=== PATIENT | female | born 1960 | race Caucasian/White ===

== ENCOUNTER 2021-11-20 19:42 | Emergency (ER) | payer BC, SELFPAY ==
--- NOTE | ~2021-11-20 | XR_ITS ---
EXAMINATION: XR chest 1V portable DATE: 11/20/2021 20:53 INDICATION: Shortness of breath. TECHNIQUE: A single frontal view of the chest was obtained. COMPARISON: Chest single view 11/26/2015 FINDINGS: A calcified left lung nodule is consistent with old granulomatous disease. There are modera te-sized pleural effusions. There are airspace opacities at the lung bases. No pneumothorax. There is enlargement of the cardiac silhouette. There is a right-sided aortic arch. IMPRESSION: 1. Moderate-sized pleural effusions. 2. Airspace opacities at the lung bases, consistent with atelectasis versus pneumonia. 3. New enlargement of the cardiac silhouette, which may be cardiomegaly and/or pericardial effusion. 4. Right-sided aortic arch. Reviewed, dictated and finalized at location [facility] IMPRESSION: 1. Moderate-sized pleural effusions. 2. Airspace opacities at the lung bases, consistent with atelectasis versus pne umonia. 3. New enlargement of the cardiac silhouette, which may be cardiomegaly and/or pericardial effusion. 4. Right-sided aortic arch.
--- NOTE | 2021-11-20 19:58 | ED.SOB ---
HPI - SOB/Dyspnea General Chief Complaint: Shortness of Breath/Dyspnea Stated Complaint: trouble breathing Time Seen by Provider: 11/20/21 19:58 History of Present Illness HPI Narrative: 61-year-old female patient presents to ER with complaints of shortness of breath that has been going on for 1 week and got worse today. The patient states that she has had back pain and did see her chiropractor earlier in the day when tested her back. She came home and slipped on ice and fell but did not lay on the ice for too long. As the day went by her shortness of breath got worse. She denies any associated chest pain. She states that she breaks out in sweats especially when she is exerting herself even as little as from getting up and walking around the room. She is not a smoker. She has had a remote history of pulmonary embolus, ? 10 years ago and was on anticoagulation for 1 year. Patient denies any chest tightness or pressure. Patient denies any pain in the neck jaw or arms. She does complain about back pain that has been going on for a while. Patient denies any nausea or vomiting. She denies any abdominal pain. Denies any passing-out spells. Related Data Home Medications Medication Instructions Recorded Confirmed aspirin 81 mg tablet,delayed 81 mg PO DAILY 10/29/19 11/20/21 release Allergies Allergy/AdvReac Type Severity Reaction Status Date / Time bupropion Allergy Mild Palpitation Verified 11/20/21 20:12 s iodine Allergy Unknown Anaphylaxis Verified 11/20/21 20:12 Review of Systems Review of Systems: All systems reviewed & are unremarkable except as noted in HPI and below ROS unobtainable: Yes unobtainable due to medical condition PMFSH Past Medical History Medical History Anxiety Dyslipidemia History of pulmonary embolism Hypertension Type 2 diabetes mellitus without complication, without long-term current use of insulin Family History Family History Other Diabetes mellitus Family history of coronary artery disease Hypertension Social History Social History Smoking status: Current every day smoker Second hand tobacco smoke exposure: No Alcohol intake: never Exam Const: General: diaphoretic and ill appearing Nutritional Appearance: well nourished HENMT: Head: normal to inspection Mouth: Yes Normal oral and palatal mucosa present and Yes moist mucous membranes Eyes: Conjunctivae: conjunctivae normal Pupils: Equal, round and reactive pupils present EOM: EOMs intact bilaterally Neck: Neck: normal visual inspection Chest: Chest palpation & inspection: normal inspection of the chest Resp: Effort & Inspection: tachypneic and uses accessory muscles Auscultation: no rales, no rhonchi and no wheezes Cardio: Rate: tachycardic GI: GI Palp: No Tenderness to palpation present (GI), No Guarding due to palpation present (GI), No Rigid due to palpation and No Rebound tenderness present Back/Spine/Pelvis: Back: no CVA tenderness Skin: General skin exam: pallor Other: Diaphoretic Neuro: General: patient oriented x3, moves all extremities, no meningeal signs, no focal motor deficits and CN's II-XI intact bilaterally Speech: normal speech Extrem: General: normal to inspection and no pedal edema Psych: Mental Status: mental status grossly normal Affect: Anxious affect present Course Course Emergency Course: 61-year-old female patient presents to ER with complaints of shortness of breath that has been progressively getting worse over a week. Apparently tonight the shortness of breath became much more severe. The patient the O also complains of associated weakness and increases in symptoms with any slight activity. She denies any chest pain. She denies any cough. She denies any fever or chills. Patient states that she has had back p
[2021-11-20 20:00] VITALS: BP 125/110; PULSE 115; RESP 26; TEMP 33.1; O2SAT 97
--- NOTE | 2021-11-20 20:05 | ECG_ITS ---
Measurements Intervals [place] Rate: 107 P: 20 VA: 149 QRS: 23 QRSD: 115 T: 6 QT: 386 QTc: 517 Interpretive Statements SINUS TACHYCARDIA POSSIBLE LEFT ATRIAL ENLARGEMENT LOW QRS VOLTAGE IN PRECORDIAL LEADS BORDERLINE R WAVE PROGRESSION, ANTERIOR LEADS MINIMAL Q WAVES- INFERIOR LEADS NONSPECIFIC ST ELEVATION IN HIGH LATERAL LEADS BASELINE ARTIFACT- I, II, III, AVR, AVL, AVF, V1-V3 ABNORMAL ECG Electronically Signed On 11-21-2021 6:48:45 CHARACTER IMPERSONATOR by Nitesh Mcgregor D.O.
[2021-11-20 20:42] LABS: Hematocrit 41.4 % (35.0-49.0); Hemoglobin 13.6 g/dL (12.0-15.0); Mean Corpuscular HGB Conc 32.9 g/dL (32.0-36.0); Mean Corpuscular Hemoglobin 29.1 pg (27.0-31.0); Mean Corpuscular Volume 88.5 fL (78.0-102.0); Mean Platelet Volume 10.6 fl (9.2-11.8); Platelet Count Result 337 K/mm3 (150-420); Red Blood Count 4.68 M/mm3 (4.20-5.40); Red Cell Distribution Width 13.5 % (11.6-14.4); White Blood Count 16.7 K/mm3 (4.8-10.8)
[2021-11-20 20:46] VITALS: BP 124/63; PULSE 106; RESP 26; O2SAT 94
[2021-11-20 21:06] LABS: Alanine Aminotransferase 42 U/L (14-59); Alkaline Phosphatase 130 U/L (46-116); Anion Gap 18 mmol/L (8-16); Aspartate Amino Transferase 24 U/L (15-37); Bilirubin,Total 2.8 mg/dL (0.00-1.00); Blood Urea Nitrogen 50 mg/dL (7-18); Calcium 9.4 mg/dL (8.5-10.1); Carbon Dioxide 24 mmol/L (21-32); Chloride 84 mmol/L (98-108); Estimated CRCL calculation 47 ml/min; Estimated Glomerular Filt Rate 33; Magnesium 2.5 mg/dL (1.8-2.4); NT Pro B Type Natriuretic Pept 2094 pg/mL (0-125); Sodium 126 mmol/L (136-145); Total Protein 8.1 g/dL (6.4-8.2)
[2021-11-20 21:08] LABS: Potassium 2.4 mmol/L (3.5-5.1)
[2021-11-20 21:09] LABS: Glucose 551 mg/dL (70-99); Osmolality Calculated 300 mOsm/kg (285-295)
[2021-11-20 21:15] VITALS: BP 121/90; PULSE 109; RESP 26; TEMP 33.3; O2SAT 96
[2021-11-20 21:16] LABS: Base Excess ABG 0.2 mmol/L (0-2); Fractional Inspired Oxygen 32 %; HCO3 ABG 23.6 mmol/L (23-29); Oxygen Content ABG 16.2 %vol (16.0-22.0); Oxygen Saturation ABG 84.9 % (95-97); Oxyhemoglobin 83.5 % (94-100); PCO2 ABG 34.7 mmHg (35-45); PO2 ABG 50.6 mmHg (80-90); PO2 FiO2 Ratio Arterial Blood 1.58 %; Total Hemoglobin 13.8 g/dL (12.0-18.0); pH ABG 7.45 (7.35-7.45)
[2021-11-20 21:17] LABS: HCO3 VBG 25.5 mEq/l (24.0-30.0); PO2 VBG 34.8 mmHg (35.0-45.0)
--- NOTE | 2021-11-20 21:17 | PC.NURSE ---
lab reports glucose of 551, erp is made aware
[2021-11-20 21:18] LABS: Device HIGH FLOW NASAL CANN; Device NASAL CANNULA; Modified Allen's Test Pass; Site Drawn RIGHT RADIAL
[2021-11-20 21:21] LABS: Creatine Kinase 339 U/L (26-192); Troponin I 13.5 ng/L (0.00-60.4)
[2021-11-20 21:22] LABS: SARS-CoV-2 RNA PCR Negative (Negative)
[2021-11-20 21:27] LABS: Neutrophils Percent Manual 77 % (46-73); Total Cells Counted 100
[2021-11-20 21:28] LABS: Band Neutrophils Percent 11 % (0-6); Basophils Percent Manual 0 % (0-1); Eosinophils Percent Manual 0 % (1-6); Lymphocytes Percent Manual 6 % (18-44); Metamyelocytes Percent 1 %; Monocytes Absolute Manual 0.83 K/mm3 (0.1-0.90); Monocytes Percent Manual 5 % (3-9); Neutrophils Absolute Manual 14.69 K/mm3 (1.7-7.2); Platelet Estimate Adequate (Adequate)
[2021-11-20 21:35] LABS: Acetone Negative (Negative)
[2021-11-20] MEDS: ENOXAPARIN 120 MG/0.8 ML SYRINGE SUB-Q (21:49)
[2021-11-20] MEDS: INSULIN HUMAN REGULAR (*BKC) 100 UNITS/ML 10 UNITS SUB-Q (21:50)
[2021-11-20] MEDS: KCL 20 MEQ/SW 100 ML 100 ML 50 MEQ IVPB (21:50)
[2021-11-20] MEDS: POTASSIUM CHLORIDE 20 MEQ TABLET 40 MEQ PO (21:50)
--- NOTE | 2021-11-20 22:14 | PC.NURSE ---
3011 CONTACTED EDITORIAL SPECIALIST AND ERP AT [facility] FOR POSSIBLE TRANSFER, TO AWAIT RETURN CALL FROM HOSPITALIST AT THIS TIME. SON AT BEDSIDE, AWARE OF PT PLAN AND CONDITION. PT IS AGREEABLE TO TRANSFER AND CARE PLAN. IV MEDICATION INFUSING ORDERED WITHOUT DIFFICULTY. PT SEEMS TO BREATHING BETTER AT THIS TIME. MEDICATIONS WERE GIVEN ORDERED WITHOUT DIFFICULTY. WILL CONTINUE TO MONITOR.
[2021-11-20 22:16] VITALS: BP 115/88; PULSE 108; RESP 30; TEMP 33.3; O2SAT 97
--- NOTE | 2021-11-20 22:32 | PC.NURSE ---
spoke with Kaur prescottmalt house kiln operator in regards to speaking with hospitalist. Dr. Hanson is malt house kiln operator who will be paged again at this time.
[2021-11-20] MEDS: SODIUM CHLORIDE 0.9% IV 1,000 ML 999 ML (22:52)
--- NOTE | 2021-11-20 22:54 | PC.NURSE ---
PT KEEPS TAKING JOSE HUGGER OFF, REPORTS SHE IS HOT. PT REMAINS COOL TO TOUCH AND DIAPHORETIC. PT RESP STATUS IMPROVING. PT IS AWAITING CULTURES TO BE OBTAINED PRIOR TO ABX START. WILL CONTINUE TO MONITOR. PT IS AWAITING ROOM ASSIGNMENT AT [facility] FOR TRANSFER. WILL CONTINUE TO MONITOR.
--- NOTE | 2021-11-20 23:20 | PC.NURSE ---
SPOKE WITH PHARMACIST AT [facility] TO VERIFY COMPATIBILITY OF MEDICATIONS. HE VERIFIES THAT VANCOMYCIN AND ZOSYN ARE COMPATIBLE WITH POTASSIUM, HOWEVER STATES TO INFUSE THEM SEPARATELY FROM EACH OTHER. PT AND SON ARE AWARE OF PLAN TO TRANSFER TO [facility] AND THAT WE ARE AWAITING A ROOM ASSIGNMENT FOR TRANSFER. WILL CONTINUE TO MONITOR.
[2021-11-20 23:26] LABS: Lactic Acid Reflex 3.6 mmol/L (0.4-2.0)
--- NOTE | 2021-11-20 23:27 | PC.NURSE ---
REPORT TO MARU LEDEZMA
[2021-11-20 23:29] LABS: Anion Gap 15 mmol/L (8-16); Blood Urea Nitrogen 50 mg/dL (7-18); Carbon Dioxide 22 mmol/L (21-32); Chloride 88 mmol/L (98-108); Estimated CRCL calculation 53 ml/min; Estimated Glomerular Filt Rate 39; Potassium 2.9 mmol/L (3.5-5.1); Sodium 125 mmol/L (136-145)
[2021-11-20 23:32] LABS: Glucose 515 mg/dL (70-99); Osmolality Calculated 296 mOsm/kg (285-295)
[2021-11-20 23:49] VITALS: TEMP 35.4
[2021-11-21 00:17] LABS: Add Urine Microscopic? YES; Appearance Urine Clear (Clear); Bilirubin Urine 1+ (Negative); Blood Urine Negative (Negative); Color Urine Dark Yellow (Yellow); Glucose Urine UA 3+ (Negative); Ketones Urine Trace (Negative); Leukocyte Esterase Ur Negative LEU/UL (Negative); Nitrate Urine Negative (Negative); Protein Urine Trace (Negative); Specific Grav Ur 1.025 (1.010-1.020); pH Urine 5.5 (5.0-8.0)
[2021-11-21 00:22] LABS: Amorphous Sediment Urine Moderate; Bacteria Urine 1+ /hpf; RBC Urine 0-2 /hpf (0-2); Squamous Epithelial Cell Urine Moderate /hpf (Few); WBC Urine 0-3 /hpf (0-3)
[2021-11-21 00:23] LABS: Glucose Point of Care 450 mg/dl (65-105)
[2021-11-21] MEDS: INSULIN HUMAN REGULAR (*BKC) 100 UNITS/ML 10 UNITS IV PUSH (00:29)
[2021-11-21] MEDS: SODIUM CHLORIDE 0.9% IV 1,000 ML 999 ML IV CONT (00:29)
[2021-11-21] MEDS: POTASSIUM CHLORIDE 20 MEQ TABLET 40 MEQ PO (00:29)
--- NOTE | 2021-11-21 00:39 | PC.NURSE ---
Report called to [facility], pt going to room 203, accepting doctor dr polanco. Pt transfered by julianna matthews rig
[2021-11-21 00:40] VITALS: BP 126/88; PULSE 102; RESP 26; TEMP 35.4; O2SAT 98
[2021-11-21 02:13] LABS: Reflex Lactic Acid Yes or No Add Lactic
== END 2021-11-21 00:42 | disposition short-term general hospital (02) ==
PROVIDERS: Emergency Provider Emergency Medicine; PCP Family Medicine
DX: A41.89 Other specified sepsis (principal); R06.03 Acute respiratory distress; R79.1 Abnormal coagulation profile; E11.65 Type 2 diabetes mellitus with hyperglycemia; E87.6 Hypokalemia; Z20.822 Contact with and (suspected) exposure to COVID-19
CPT/HCPCS: 36415; 36600; 71045; 80048; 80053; 81001; 82010; 82550; 82553; 82803; 82805; 82948; 83605; 83735; 83880; 84484; 85025; 85380; 87040; 93005; 96361; 96365; 96367; 96372; 96375; 99291; A9270; C9803; J1650; J1815; J2543; J3370; J3480; J7030; U0003; U0005

== ENCOUNTER 2021-11-21 01:43 | Inpatient (IN) | payer BC, SELFPAY ==
[2021-11-21] VITALS (52 sets, daily range): BP systolic 70–146; BP diastolic 34–93; PULSE 99–122; RESP 20–31; TEMP 35.3–38.1; O2SAT 90–97; BMI 40.4
--- NOTE | 2021-11-21 | ECHO_ITS ---
Patient Info Name: Aleah Almeida Age: 61 years : 1960 Gender: Female Ht: 68 in Wt: 265 lbs BSA: 2.46 m2 HR: 71 bpm BP: 92 / 71 mmHg Heart Rhythm: Sinus Rhythm Technical Quality: Good Exam Date: 11/21/2021 7:41 AM Exam Location: [facility] Pulmonary Exam Room: ICU5 Patient Status: Inpatient Admit Date: 11/21/2021 Staff Ordering Physician: Aydee Hanson DO Community Development Coordinator: Mirna Ballesteros RDCS Attending Provider: Aydee Hanson DO Referring Physician: Margie CAROLINA; Exam Type: CA echo doppler color flow Study Info Indications - CARDIOMEGALY PLEURAL EFFUSION PUM EDEMA Complete two-dimensional, color flow and Doppler transthoracic echocardiogram is performed. Summary 1. Complete two-dimensional, color flow and Doppler transthoracic echocardiogram is performed. 2. Normal left ventricular size with mild concentric hypertrophy. Normal systolic function, ejection fraction 60-65%, with no segmental wall motion abnormalities. Normal diastolic function. 3. Moderate right ventricular enlargement with moderate hypokinesis. 4. Mild right atrial enlargement. 5. There is mild tricuspid valve regurgitation. 6. Mild pulmonary hypertension, estimated pulmonary arterial systolic pressure is 46 mmHg. 7. There is trivial pericardial effusion. 8. Normal sinus rhythm. Left Ventricle Left ventricular chamber dimension is normal. Left ventricular systolic function is normal, estimated at 60-65%. There is mildly increased left ventricular wall thickness. Left ventricular septal wall motion is normal. The left ventricular diastolic function is normal. Right Ventricle Right ventricular chamber dimension is moderately enlarged. Right ventricular systolic function is reduced. Left Atria Left atrial chamber dimension is normal. Right Atria Right atrial chamber dimension is mildly enlarged. Aortic Valve The aortic valve is trileaflet. There is no aortic valve sclerosis. There is no aortic valve stenosis. There is no aortic valve regurgitation. Pulmonic Valve The pulmonic valve is normal. There is no pulmonic valve stenosis. There is no pulmonic regurgitation. Mitral Valve The mitral valve has normal leaflets. There is no mitral valve stenosis. There is no mitral valve regurgitation. Tricuspid Valve The tricuspid valve leaflets are normal. There is no significant tricuspid valve stenosis. There is mild tricuspid valve regurgitation. Mild pulmonary hypertension, estimated pulmonary arterial systolic pressure is 46 mmHg. Pericardium/Pleural There is trivial pericardial effusion. Inferior Vena Cava Normal inferior vena cava with >50% collapse upon inspiration consistent with Empty right atrial pressure, 10 mmHg. Aorta The aortic root size at the sinus of Valsalva is normal. The prox ascending aorta size is normal. Left Ventricular Outflow Tract Name Value Normal LVOT 2D LVOT Diameter 2.1 cm LVOT Doppler LVOT Peak Gradient 6 mmHg LVOT Mean Gradient 3 mmHg LVOT VTI 17 cm
--- NOTE | ~2021-11-21 | XR_ITS ---
EXAMINATION: [id number] DATE: 11/22/2021 14:04 INDICATION: Left pleural effusion status post thoracentesis. TECHNIQUE: A single frontal view of the chest was obtained. COMPARISON: Chest single view at 5:02 AM, chest CT 11/21/2021 FINDINGS: There are moderate-sized loculated pleural effusions. A calcified left lung nodule is consi stent with old granulomatous disease. There are airspace opacities in all lung zones bilaterally. No pneumothorax. The heart size is normal. The endotracheal tube tip is 4.0 cm above the alex. The mack ogastric tube tip is beyond the inferior margin of the radiograph, but at least to the stomach. IMPRESSION: 1. Moderate-sized loculated pleural effusions with improvement on the left status post thoracentesis. 2. Severe diffuse lung disease, consistent with pneumonia and atelectasis. Reviewed, dictated and finalized at location A. IC TECHNICIAN IMPRESSION: 1. Moderate-sized loculated pleural effusions with improvement on the left stat us post thoracentesis. 2. Severe diffuse lung disease, consistent with pneumonia and atelectasis.
--- NOTE | ~2021-11-21 | CT_ITS ---
EXAMINATION: CT brain wo con INDICATION: Encephalopathy COMPARISON: None TECHNIQUE: Standard unenhanced head CT. The dose-length product (DLP) was 605.33 mGy-cm. The mA was a djusted according to patient size. Iterative reconstruction technique was employed. FINDINGS: There is no intracranial hemorrhage, acute infarction, or abnormal mass lesion. The ventric les are normal. There is no abnormal mass effect or midline shift. The burger-white matter differentiat ion is normal. The basal cisterns are patent. Changes in the globes are likely from ocular lens surge ry. There is mild mucosal thickening of the paranasal sinuses and small mastoid effusions. IMPRESSION: 1. No acute intracranial abnormality. Reviewed, dictated and finalized at location A. STS' BOOKING REPRESENTATIVE
--- NOTE | ~2021-11-21 | XR_ITS ---
EXAMINATION: XR chest 1V portable DATE: 11/23/2021 05:48 INDICATION: Acute respiratory failure. Pleural effusion. TECHNIQUE: A single frontal view of the chest was obtained. COMPARISON: Chest single view 11/22/2021 FINDINGS: There are moderate-sized bilateral loculated pleural effusions. There are airspace opacitie s in all lung zones bilaterally, left worse than right. A calcified left lung nodule is consistent wi th old granulomatous disease. No pneumothorax. The heart size is normal. There is a right-sided aorti c arch. The endotracheal tube tip is 4.2 cm above the alex. The nasogastric tube tip is beyond the inferior margin of the radiograph, but at least to the stomach. IMPRESSION: 1. Stable moderate-sized loculated bilateral pleural effusions. Consider repeat thoracentesis. 2. Stable diffuse lung disease, consistent with pneumonia. Reviewed, dictated and finalized at location A. I POWDER MIXER
--- NOTE | ~2021-11-21 | XR_ITS ---
EXAMINATION: XR chest ET placement INDICATION: Septic shock, endotracheal tube placement TECHNIQUE: Portable AP chest at 0200 hours COMPARISON: 11/20/2021 FINDINGS: An endotracheal tube has been inserted which ends approximately 2.8 cm above the alex. Th e nasogastric tube is followed as far as the stomach. Its tip is beyond the inferior margin of the ra diograph. There are small to moderate-sized pleural effusions. The cardiac silhouette is enlarged. No pneumothorax is identified. A right-sided aortic arch is again noted. IMPRESSION: 1. Endotracheal and nasogastric tubes in adequate position. 2. Moderate-sized pleural effusions. 3. Enlargement of the cardiac silhouette which may be due to cardiomegaly and/or pericardial effusion . Reviewed, dictated and finalized at location A. CONDITIONING UNIT TESTER IMPRESSION: 1. Endotracheal and nasogastric tubes in adequate position. 2. Moderate-sized pleural effusions. 3. Enlargement of the cardiac silhouette which may be due to cardiomegaly and/o r pericardial effusion.
--- NOTE | ~2021-11-21 | US_ITS ---
EXAMINATION: US thoracentesis DATE: 11/22/2021 14:20 INDICATION: pleural effusion TECHNIQUE: The procedure and its risks, benefits, and alternatives were discussed with Devin Frederick. Potential risks discussed included bleeding, infection, and pneumothorax. He understood the risks and agreed to proceed. The skin was prepped and draped in sterile fashion. 1% lidocaine was used for loc al anesthesia. Under ultrasound guidance, a 5 Fr catheter with trochar was advanced into the left ple ural effusion. Fluid was aspirated. The catheter was removed, and a dressing was applied. There were no immediate complications. FINDINGS: Ultrasound images demonstrate a left pleural effusion and the catheter within the fluid. IMPRESSION: 1. Successful ultrasound-guided thoracentesis yielding 1200 mL of opaque, kincaid fluid. Reviewed, dictated and finalized at location A. ING MANAGER
--- NOTE | ~2021-11-21 | XR_ITS ---
EXAMINATION: XR chest 1V portable DATE: 11/24/2021 05:49 INDICATION: Respiratory failure. TECHNIQUE: A single frontal view of the chest was obtained. COMPARISON: Chest single view 11/23/2021 FINDINGS: There are moderate-sized bilateral loculated pleural effusions. There are airspace opacitie s in right mid and lower lung zones and all left lung zones. A calcified left lung nodule is consiste nt with old granulomatous disease. There is a tiny left pneumothorax. The heart size is normal. There is a right-sided aortic arch. The endotracheal tube tip is 4.6 cm above the alex. A right upper ex tremity peripherally inserted central venous catheter (PICC) is seen with tip at the superior cavoatr ial junction. The nasogastric tube tip is beyond the inferior margin of the radiograph, but at least to the stomach. IMPRESSION: 1. New tiny left pneumothorax. 2. Stable airspace opacities in right mid and lower lung zones and all left lung zones, consistent wi th pneumonia. 3. Stable moderate-sized bilateral loculated pleural effusions. Reviewed, dictated and finalized at location A. LER AND TEST PREPARER IMPRESSION: 1. New tiny left pneumothorax. 2. Stable airspace opacities in right mid and lower lung zones and all left sarita g zones, consistent with pneumonia. 3. Stable moderate-sized bilateral loculated pleural effusions.
--- NOTE | ~2021-11-21 | CT_ITS ---
EXAMINATION: CT chest abdomen pelvis wo con DATE: 11/21/2021 05:05 INDICATION: Septic shock TECHNIQUE: Transaxial computed tomographic images of the chest, abdomen, and pelvis were obtained wit hout intravenous contrast. The dose-length product (DLP) was 2055.15 mGy-cm. Automated exposure contr ol and iterative reconstruction technique were employed. COMPARISON: None FINDINGS: CHEST CT: There are moderate size loculated bilateral pleural effusions which result in passive atelectasis of the adjacent lung. In the left pleural space, the fluid appears to be hyperattenuating however accura te assessment of attenuation is limited by streak artifact from the arms. The endotracheal tube is 1. 9 cm above the alex. The heart size is normal. There is a large pericardial effusion. There is a ri ght-sided aortic arch. There is no pneumothorax. ABDOMEN/PELVIS CT: The gallbladder is surgically absent. The liver, spleen, pancreas, and adrenal glands are normal. The nasogastric tube is in the stomach. The kidneys are unremarkable. The bladder is decompressed by Fol ey catheter. No pathologically enlarged abdominal or pelvic lymph nodes are identified. There is no f ree intraperitoneal gas or evidence of bowel obstruction. There is a moderate-sized infraumbilical he rnia containing fat. A right femoral venous catheter is noted. IMPRESSION: 1. Moderate-sized loculated pleural effusions with passive atelectasis of the lungs. 2. Large pericardial effusion. 3. No acute findings of the abdomen or pelvis. Reviewed, dictated and finalized at location A. BLANKING PRESS ADJUSTER IMPRESSION: 1. Moderate-sized loculated pleural effusions with passive atelectasis of the l ungs. 2. Large pericardial effusion. 3. No acute findings of the abdomen or pelvis.
--- NOTE | ~2021-11-21 | US_ITS ---
EXAMINATION: US venous doppler [facility] DATE: 11/22/2021 10:40 INDICATION: Lower limb edema. TECHNIQUE: Grayscale ultrasound images without and with compression and Doppler ultrasound images of the bilateral lower extremity veins were obtained. COMPARISON: None. FINDINGS: The visualized portions of right common femoral vein, profunda (deep) femoral vein, femoral vein, pop liteal vein, peroneal veins, posterior tibial veins, and greater saphenous vein outflow are patent. The visualized portions of left common femoral vein, profunda femoral vein, femoral vein, popliteal v ein, peroneal veins, posterior tibial veins, and greater saphenous vein outflow are patent. IMPRESSION: 1. No deep venous thrombosis. Reviewed, dictated and finalized at location A. LITIES MAINTENANCE SUPERVISOR
--- NOTE | ~2021-11-21 | XR_ITS ---
EXAMINATION: XR abdomen NG/feed tube insert INDICATION: OG placement TECHNIQUE: Portable AP KUB-NG at 0209 hours COMPARISON: None available FINDINGS: The OG tube is in the stomach. The bowel gas pattern is nonspecific. IMPRESSION: 1. OG tube in the stomach. Reviewed, dictated and finalized at location A. AL ACCOUNT DIRECTOR IMPRESSION: 1. OG tube in the stomach.
--- NOTE | ~2021-11-21 | XR_ITS ---
EXAMINATION: XR chest 1V portable DATE: 11/22/2021 05:30 INDICATION: Acute respiratory failure. Pleural effusion. TECHNIQUE: A single frontal view of the chest was obtained. COMPARISON: Chest single view 11/21/2021, chest CT 11/21/2021 FINDINGS: There are bilateral moderate-sized loculated pleural effusions. There are airspace opacitie s in right mid and lower lung zones and all left lung zones. A calcified left lung nodule is consiste nt with old granulomatous disease. No pneumothorax. The heart size is obscured. There is a right-side d aortic arch. The endotracheal tube tip is 3.4 cm above the alex. The nasogastric tube tip is beyo nd the inferior margin of the radiograph, but at least to the stomach. IMPRESSION: 1. Stable bilateral moderate-sized loculated pleural effusions. 2. Stable airspace opacities in right mid and lower lung zones and all left lung zones, consistent wi th pneumonia and atelectasis. Reviewed, dictated and finalized at location A. ONENT DESIGN ENGINEER IMPRESSION: 1. Stable bilateral moderate-sized loculated pleural effusions. 2. Stable airspace opacities in right mid and lower lung zones and all left sarita g zones, consistent with pneumonia and atelectasis.
--- NOTE | ~2021-11-21 | CT_ITS ---
EXAMINATION: CT chest abdomen pelvis wo con DATE: 11/23/2021 09:53 INDICATION: Septic shock TECHNIQUE: Transaxial computed tomographic images of the chest, abdomen, and pelvis were obtained wit hout intravenous contrast. The dose-length product (DLP) was 2067.89 mGy-cm. Automated exposure contr ol and iterative reconstruction technique were employed. COMPARISON: 11/21/2021 FINDINGS: CHEST CT: Moderate-sized bilateral loculated pleural effusions are again noted. There are increasing airspace o pacities throughout the lungs. Passive atelectasis is also again noted and not significantly changed. There is a large pericardial effusion the heart size is normal. There is a questionable tiny anterio r right-sided pneumothorax. The endotracheal tube ends approximately 2.1 cm above the alex. A right -sided aortic arch is noted. ABDOMEN/PELVIS CT: The nasogastric tube is in the stomach. The gallbladder is surgically absent. Punctate calcifications in otherwise normal appearing liver and spleen likely represent healed granulomatous disease. The pa ncreas and adrenal glands appear normal. The kidneys are unremarkable. No pathologically enlarged abd ominal or pelvic lymph nodes are identified. There is no free intraperitoneal gas or evidence of bola l obstruction. A moderate-sized fat-containing infraumbilical hernia is again noted. There is a right femoral venous catheter. Gas in the adjacent soft tissues suggests recent catheter replacement. The bladder is decompressed by Martinez catheter. IMPRESSION: 1. Increasing airspace opacities of the lungs, likely pneumonia. 2. Moderate-sized loculated pleural effusions. 3. Large pericardial effusion. 4. No acute findings of the abdomen or pelvis. Reviewed, dictated and finalized at location A. ARCHITECT
--- NOTE | 2021-11-21 01:31 | PM.IMHP ---
H&P: HPI History of Present Illness Date/Time: 11/21/21 01:31 Chief Complaint: Shortness of breath Narrative: Source of information: Family report and ER records. Patient is intubated and cannot provide history. 61-year-old female with past medical history of hypertension, hyperlipidemia, diabetes, obesity and distant history of pulmonary embolism who presented to [facility] ER due to shortness of breath. Patient reportedly been having shortness of breath for 1 week. Patient had evidently slipped and fallen on some ice around 10:30 a.m. after going to her chiropractor. Following the fall she had pain from her left shoulder down to her left hip. She also had acute worsening of her shortness of breath and had to rolled her window down in order to get any air. When she arrived to the outside facility she was diaphoretic and burger in color. She was tachypneic with a respiratory rate of 30. She told the ER staff that she was not able to lie flat. Patient's skin was cold to touch in her oral temperature on arrival to outside hospital was 92?. After she had been on a Pastora Hugger for 3 hours her rectal temperature at the outside hospital was 95?. She denied any chest pain at the outside facility. She had been having episodes of sweating at home and specially if she exerted herself. She denied a history of smoking to the ER staff but her sons reported that the patient still does smoke. Patient had a remote history of pulmonary embolism approximately 10 years ago and was on anticoagulant for 1 year before they were stopped. Patient had denied any abdominal symptoms at the outside ER. She has not had any episodes of syncope. When she arrived to the outside ER they were unable to picking belt operator a pulse ox due to her cold extremities. She was. Was started on 2 L nasal cannula. Her ABG at that time demonstrated a PO2 low at 50. Her D-dimer was elevated at 2.5. [place] [address] with 11% bands. Her CMP demonstrated significant hyponatremia with sodium 125 potassium was 2.4 anion gap was 18 with BUN and creatinine are 50 and 1.5. Her glucoses were 500. She had hyperbilirubinemia of 2.8 and a lactic acid of 3.6. Her BNP was mildly elevated at 2094. Her albumin was low at 2. Her chest x-ray demonstrated moderate size pleural effusions bilateral lower lobe opacities consistent with atelectasis versus pneumonia. Enlargement the cardiac silhouette was noted consistent with cardiomegaly versus pericardial effusion and a right-sided aortic arch. The patient's sons report that she has been under extra stress at work. 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 She has been noncompliant with her medications for at least several months. Review of Systems Review of Systems: ROS unobtainable: Yes unobtainable due to endotracheal tube PMFSH Past Medical History Medical History (Updated 11/21/21 @ 04:27 by Aydee Hanson DO) Anxiety Dyslipidemia History of pulmonary embolism Hypertension Type 2 diabetes mellitus without complication, without long-term current use of insulin Surgical History Surgical History (Updated 11/21/21 @ 03:46 by Aydee Hanson DO) History of appendectomy History of repair of left rotator cuff Status post cholecystectomy Family History Family History Other Diabetes mellitus Family history of coronary artery disease Hypertension Social History Social History (Updated 11/21/21 @ 04:02 by Aydee Hanson DO) Social History: The patient lives at home with her 2 adult sons. 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 Smoking packs per day: 1 Smoking cigarettes per day: 20.0 Years smoked: 10 Smoking pack-years: 10.00 Smoking status: Current every day smoker Tobacco type: cigarettes Second hand tobacco smoke exposure: No Alcohol intake: current Substance use: never Spiritual care concerns: N
--- NOTE | 2021-11-21 01:35 | ECG_ITS ---
Measurements Intervals [place] Rate: 104 P: 44 SC: 154 QRS: 33 QRSD: 91 T: 3 QT: 363 QTc: 478 Interpretive Statements SINUS TACHYCARDIA POSSIBLE LEFT ATRIAL ENLARGEMENT LOW QRS VOLTAGE IN PRECORDIAL LEADS BORDERLINE ST-T WAVE ABNORMALITY- ANT/INF LEADS BASELINE ARTIFACT- I, II, III, AVR, AVL, AVF, V1-V6 BORDERLINE ECG Electronically Signed On 11-23-2021 13:56:18 PHOTOGRAPHIC ARTIST by Nitesh Mcgregor D.O.
[2021-11-21] MEDS: SODIUM CHLORIDE 0.9% IV 1,000 ML 999 ML IV CONT ×2 (01:50→03:12)
--- NOTE | 2021-11-21 02:14 | PC.NURSE ---
This patient, Aleah Almeida, was admitted to IMU, 203-1 on 11/21/21 at 0113 via EMS from [facility]. Once the patient was transferred from the stretcher to the bed, she was noted to be mottled, cool, clammy, and barely responsive. B/P 95/34, O2 sat 65% on a 4L nasal cannula. A 100% non-rebreather was immediately applied and Dr. Hanson was called to come to the bedside. Dr. Hanson arrived within 3 minutes to examine the patient. Decision was made to immediately transfer the patient to the ICU for emergent intubation. Patient was transferred at approx. 0130 to ICU 5. Janet Kellogg RN was given report.
[2021-11-21] MEDS: FENTANYL 2,500MCG/NS250ML(*CRX 2,500 MCG/250 ML BAG IV CONT (02:20)
[2021-11-21] MEDS: MIDAZOLAM 100MG/NS 100ML(*CRX) 100 MG/100 ML BAG IV CONT (02:20)
[2021-11-21] MEDS: NOREPINEPHRINE 8 MG/D5W 250 ML 8 MG/250 ML BAG 9.38 MG IV CONT (02:30)
--- NOTE | 2021-11-21 02:46 | PC.NURSE ---
I called Devin Winn (Father) to update him on the changes and answered all questions. Obtained phone consent for central line and arterial line placement by Dr. Hanson. Yolis Mckeon RN was witness. Phone call was placed at approx. 0200 on 11/21/21.
[2021-11-21 03:02] LABS: Hematocrit 38.3 % (37.0-47.0); Hemoglobin 12.9 g/dL (12.0-15.0); Mean Corpuscular HGB Conc 33.7 g/dl (32-36); Mean Corpuscular Volume 89.1 fl (80-100); Mean Platelet Volume 10.3 fl (7.4-10.4); Platelet Count Result 359 k/mm3 (150-375); Red Cell Distribution Width 13.8 % (11.5-14.5); White Blood Count 19.9 K/mm3 (4.5-10.0)
--- NOTE | 2021-11-21 03:18 | WPDPROCEDUR ---
Procedures Central Line Placement Right Femoral: Central Line Date: 11/21/21 Central Line Time: 02:20 Discussed w/ the patient/family/POA,the placement of a central venous catheter, including its clinical necessity/indication & associated potential risks, benifits and alternatives.: Yes The patient/family/POA understand(s) and acknowledge(s) the need to proceed with central venous catheter insertion as an important element of the patient's clinical management.: Yes Time Out Performed: Yes Patient Position: trendelenburg Patient placed on monitor/pulse ox: Yes Provider Prep: mask, sterile gown, sterile gloves, Max. sterile barrier precautions, cap and hand hygiene with conventional soap/water or alcohol based hand rub Central line prep: 2% Chlorhexidine scrub and sterile full body sheet applied Sterile US Technique with sterile gel/sterile probe covers: Yes Central line lumen inserted: triple Frisian: 7 Length (cm): 16 Depth of Insertion (cm): 15 Post Procedure: sutured in place, good blood return, all ports aspirated, flushed, capped, transparent dressing, securement product and aseptic technique maintained throughout procedure Patient tolerated procedure: well and no complications Complications: none
--- NOTE | 2021-11-21 03:27 | WPDPROCEDUR ---
Procedures Intubation Intubation Date: 11/21/21 Intubation Time: 01:50 A pre-procedural Time-Out was completed immediately before starting the procedure and confirmed: Patient Identification, Site, Procedure, Patient Position and the Availability of Requisite Equipment: Yes Sedative: etomidate Mg given: 20 Paralytic: succinylcholine Mg given: 100 Laryngoscope: fiber optic video scope ET tube size: 7.5 Tube secured depth (cm): 25 Tube secured location: lips Tube placement confirmation: visualized tube passing through cords, equal breath sounds bilaterally, no breath sounds over epigastrium and confirmation by capnometry Patient tolerated procedure: well
[2021-11-21 03:28] LABS: Troponin I < 0.012 ng/mL (0.000-0.034)
[2021-11-21 03:29] LABS: INR 1.5; Partial Thromboplastin Time 27.3 SECONDS (22.3-36.8); Prothrombin Time 17.7 Seconds (11.1-14.7)
--- NOTE | 2021-11-21 03:35 | PC.NURSE ---
Reinier performed 4.6 % not fluid responsive, Dr Hanson notified
[2021-11-21 03:46] LABS: Alveolar/Arterial O2 Gradient 586.2 mmHg; Base Excess ABG -2.1 mEq/l (+/-2.0); Fractional Inspired Oxygen 100 %; HCO3 ABG 24.5 mEq/l (22.0-26.0); Methemoglobin ABG 0.3 %THb (0-1.5); Oxygen Content ABG 16.8 %vol (16.0-22.0); Oxygen Saturation ABG 94.3 % (95.0-100.0); Oxyhemoglobin 91.6 % THb (90.0-100.0); PCO2 ABG 49.4 mmHg (35.0-45.0); PO2 ABG 77.4 mmHg (80.0-100.0); PO2 FiO2 Ratio Arterial Blood 0.77 %; Reduced Hemoglobin 7.1 %THb (0-5.0); pH ABG 7.313 (7.350-7.450)
[2021-11-21 03:49] LABS: Arterial Blood Gas Ventilator rate 20 /MIN; Device VENTILATOR; Modified Allen's Test Pass; Site Drawn LEFT RADIAL
[2021-11-21 03:50] LABS: Arterial Blood Gas PEEP 5 cmH2O; Arterial Blood Gas Tidal Volume 400 ml; Arterial Blood Gas Vent Mode CMV
[2021-11-21 04:03] LABS: Lactic Acid Reflex 6.5 mmol/L (0.7-2.1)
[2021-11-21 04:04] LABS: Alanine Aminotransferase 39 U/L (4-35); Alkaline Phosphatase 141 U/L (38-126); Anion Gap 17 mmol/L (8-16); Aspartate Amino Transferase 44 U/L (14-36); Bilirubin,Total 2.5 mg/dL (0.2-1.3); Blood Urea Nitrogen 52 mg/dL (7-17); Calcium 8.5 mg/dL (8.4-10.2); Carbon Dioxide 27 mmol/L (22-30); Chloride 92 mmol/L (98-107); Estimated CRCL calculation 52 ml/min; Estimated Glomerular Filt Rate 38; Glucose 187 mg/dL (65-110); Potassium 2.3 mmol/L (3.4-5.0); Sodium 136 mmol/L (137-145)
[2021-11-21] MEDS: SODIUM CHLORIDE 0.9% IV 1,000 ML 100 ML IV CONT ×3 (05:16→18:36)
[2021-11-21 07:17] LABS: Lactic Acid Reflex 3.6 mmol/L (0.7-2.1)
[2021-11-21] MEDS: VASOPRESSIN INJ 100 UNITS in DEXTROSE 5% 95 ML IV CONT (07:24)
--- NOTE | 2021-11-21 09:15 | WPDCNINT ---
Assessment and Plan Assessment and plan (1) Septic shock: Code(s): A41.9 - Sepsis, unspecified organism; R65.21 - Severe sepsis with septic shock Status: Acute Assessment and Plan: Septic shock likely related to empyema, pneumonia, possible bacteremia -patient has received adequate IV fluid resuscitation -currently on Levophed and vasopressin, will maintain mean arterial pressures > 65-70 mmHg for adequate end organ perfusion -CT chest without contrast showed loculated pleural effusion bilaterally with compressive atelectasis, no abnormalities within the abdomen or pelvis. Fat stranding within the mediastinal soft tissues on the heart is a single focus of gas within the epicardial fat -will have surgery evaluate the patient -patient has been started on Zosyn and vancomycin -acute kidney injury -blood and urine cultures have been obtained, will also obtain sputum cultures -continue maintenance IV fluids (2) Acute respiratory failure with hypoxia: Code(s): J96.01 - Acute respiratory failure with hypoxia Status: Acute Assessment and Plan: Acute respiratory failure likely related to compressive atelectasis secondary to bilateral loculated effusions -intubated on 11/21/2021 -currently on CMV mode of ventilation, peep of 5 and 100% FiO2, ABGs reviewed, ventilator adjusted, will increase PEEP to 8 and decrease FiO2 to maintain O2 sats greater than 92% -continue antibiotics as above -will add bronchodilators -patient is sedated with fentanyl and Versed infusion (3) Acute renal failure: Qualifiers: Acute renal failure type: unspecified Qualified Code(s): N17.9 - Acute kidney failure, unspecified Code(s): N17.9 - Acute kidney failure, unspecified Status: Acute Assessment and Plan: Patient with acute kidney injury likely related to hypotension, septic shock, ATN, infection -patient has had adequate IV fluids, will give additional Hespan -continue maintenance IV fluids -monitor urine output, renal function and electrolytes (4) Blood D-dimer assay positive: Code(s): R78.89 - Finding of other specified substances, not normally found in blood Status: Acute Assessment and Plan: Elevated D-dimer, patient CRP also 37.0 -given her renal function patient cannot get a CTA to rule out PE. -patient cannot get a V/Q scan because she is intubated on ourmachines do not take vented patient's -patient was given 1 dose of therapeutic Lovenox (5) DVT prophylaxis: Code(s): Z29.9 - Encounter for prophylactic measures, unspecified Status: Acute Assessment and Plan: Will continue prophylactic Lovenox Additional Plan Nutrition: Will keep NPO and start tube feeds in a.m. since patient is on high doses of vasopressors at this time Stress ulcer prophylaxis: Famotidine Will update family Code status: Full code Critical care time spent: 51 minutes This dictation may have been done utilizing a voice recognition system. Attempts have been made to correct errors. However, there may be uncorrected grammatical, spelling, and recognition errors present. Due to a high probability of clinically significant, life threatening deterioration, the patient required my highest level of preparedness to intervene emergently and I personally spent this critical care time directly and personally managing the patient. This critical care time included obtaining a history; examining the patient; pulse oximetry; ordering and review of studies; arranging urgent treatment with development of a management plan; evaluation of patient's response to treatment; frequent reassessment; and discussions with other providers. It was exclusive of separately billable procedures and treating other patients and teaching time. Please see Assessment and Plan section and the rest of the note for further information on patient assessment and treatment Group Leader [employer] Consult Note Consult date: 11/21/21 Reason
[2021-11-21] MEDS: HYDROCORTISONE SODIUM SUCCINATE 100 MG/2 ML VIAL IV PUSH ×3 (09:48→21:17)
[2021-11-21] MEDS: hetaSTARCH 6%/NACL 500 ML 250 ML IV CONT (09:48)
[2021-11-21] MEDS: FAMOTIDINE 20 MG/2 ML VIAL IV PUSH ×2 (09:49→20:16)
[2021-11-21] MEDS: MINERAL OIL/WHITE PETROLATUM OINTMENT 1 APPLIC EACH EYE ×2 (09:49→20:16)
[2021-11-21] MEDS: ENOXAPARIN 120 MG/0.8 ML SYRINGE SUB-Q (09:50)
[2021-11-21] MEDS: NOREPINEPHRINE 8 MG/D5W 250 ML 8 MG/250 ML BAG 37.5 MG IV CONT (10:44)
[2021-11-21] MEDS: INSULIN ASPART (*BKC) 100 UNITS/ML SUB-Q ×3 (11:11→21:18)
[2021-11-21 13:18] LABS: Potassium 4.3 mmol/L (3.4-5.0)
[2021-11-21 13:21] LABS: Lactic Acid Reflex 3.4 mmol/L (0.7-2.1)
[2021-11-21 13:48] LABS: Glucose Point of Care 265 mg/dl (65-105)
[2021-11-21 16:09] LABS: Reflex Lactic Acid Yes or No Add Lactic
--- NOTE | 2021-11-21 16:43 | PM.IMPN ---
Progress Note: A&P Assessment and Plan (1) Septic shock: Code(s): A41.9 - Sepsis, unspecified organism; R65.21 - Severe sepsis with septic shock Status: Acute Assessment and Plan: Likely due to pneumonia with empyema Continue Zosyn and vancomycin Continue pressors Surgical consultation (2) Acute respiratory failure with hypoxia: Code(s): J96.01 - Acute respiratory failure with hypoxia Status: Acute Assessment and Plan: Intubated November 21 Likely due to loculated pleural effusions with pulmonary compression (3) Acute renal failure: Qualifiers: Acute renal failure type: unspecified Qualified Code(s): N17.9 - Acute kidney failure, unspecified Code(s): N17.9 - Acute kidney failure, unspecified Status: Acute Assessment and Plan: Due to sepsis Improving with hydration and pressors (4) Blood D-dimer assay positive: Code(s): R78.89 - Finding of other specified substances, not normally found in blood Status: Acute Assessment and Plan: Elevated D-dimer, patient CRP also 37.0 -given her renal function patient cannot get a CTA to rule out PE. -patient cannot get a V/Q scan because she is intubated -patient was given 1 dose of therapeutic Lovenox at admission then transitioned to prophylactic Subjective Date/time seen: 11/21/21 16:43 Interval history: Admitted November 20 with septic shock and respiratory failure and acute kidney injury. November 21 visit. Patient remains intubated. Review of Systems Review of Systems: ROS unobtainable: Yes unobtainable due to medical condition Exam Narrative: Drowsy but arouses easily. Follows simple commands. Sclerae nonicteric. Neck no obvious JVD. Chest with coarse breath sounds, diminished at lower lobes Heart regular rate no audible murmurs Abdomen with hypoactive bowel sounds, mild diffuse tenderness, soft Extremities by fee throughout with trace pitting and vesicle on left 1st toe plantar surface Musculoskeletal no gross deformities Neurologic cranial nerves symmetric to visual inspection Objective Data Vital Signs Vital Signs: Vital Signs - 24 hr 11/21/21 01:35 11/21/21 01:50 11/21/21 02:00 Temperature 95.6 F L Pulse Rate 104 H 114 H 120 H Respiratory Rate 21 H Blood Pressure 117/93 H Pulse Oximetry 92 92 11/21/21 02:20 11/21/21 02:38 11/21/21 02:40 Temperature Pulse Rate 110 H 114 H 117 H Respiratory Rate 24 H 28 H Blood Pressure Pulse Oximetry 92 11/21/21 02:50 11/21/21 03:15 11/21/21 03:40 Temperature Pulse Rate 118 H 110 H 102 H Respiratory Rate 30 H 24 H 28 H Blood Pressure Pulse Oximetry 11/21/21 03:54 11/21/21 04:00 11/21/21 04:15 Temperature 96.3 F L 96.6 F L 96.8 F L Pulse Rate 100 99 Respiratory Rate 20 20 Blood Pressure 77/41 L 89/69 L Pulse Oximetry 92 93 11/21/21 05:04 11/21/21 05:17 11/21/21 05:30 Temperature Pulse Rate 114 H 100 Respiratory Rate 20 Blood Pressure 78/46 L 78/46 L Pulse Oximetry 92 11/21/21 05:40 11/21/21 05:45 11/21/21 06:00 Temperature 97.7 F Pulse Rate 100 100 Respiratory Rate 20 20 Blood Pressure 70/40 L 84/65 L Pulse Oximetry 96 11/21/21 06:05 11/21/21 06:15 11/21/21 06:30 Temperature Pulse Rate Respiratory Rate Blood Pressure 78/68 L 84/65 L 85/72 L Pulse Oximetry 11/21/21 06:49 11/21/21 07:24 11/21/21 08:00 Temperature 98.0 F Pulse Rate 104 H Respiratory Rate 25 H Blood Pressure 95/50 L 87/66 L 110/81 Pulse Oximetry 93 11/21/21 08:50 11/21/21 10:00 11/21/21 10:44 Temperature 98.8 F Pulse Rate 107 H 115 H Respiratory Rate 24 H Blood Pressure 122/86 121/89 Pulse Oximetry 92 93 11/21/21 11:04 11/21/21 12:00 11/21/21 12:52 Temperature 99.3 F Pulse Rate 116 H 119 H Respiratory Rate 27 H Blood Pressure 117/85 133/87 Pulse Oximetry 93 90 11/21/21 12:53 11/21/21 12:54 11/21/21 13:55 Temperature
[2021-11-21 17:09] LABS: Glucose Point of Care 466 mg/dl (65-105)
[2021-11-21 17:09] LABS: Glucose Point of Care 362 mg/dl (65-105)
--- NOTE | 2021-11-21 17:26 | PCRCNOTE ---
Window of time for administration has passed. See next scheduled administration.
[2021-11-21 17:33] LABS: Glucose Point of Care 403 mg/dl (65-105)
[2021-11-21 17:56] LABS: Lactic Acid 3.3 mmol/L (0.7-2.1)
[2021-11-21] MEDS: NOREPINEPHRINE 8 MG/D5W 250 ML 8 MG/250 ML BAG 24.38 MG IV CONT (18:39)
[2021-11-21] MEDS: IPRATROPIUM BR 0.02% INH SOLN 0.5 MG/2.5 ML VIAL INHALATION (20:06)
[2021-11-21] MEDS: LEVALBUTEROL NEB 1.25 MG/3 ML 0.63 MG INHALATION (20:07)
--- NOTE | 2021-11-21 20:36 | PC.NURSE ---
Spoke with Dr Palomares per consult for loculated pleural effusions. states that we are not able to do cardiothoracic surgery here.
[2021-11-21 21:28] LABS: Glucose Point of Care 361 mg/dl (65-105)
[2021-11-22] VITALS (39 sets, daily range): BP systolic 89–108; BP diastolic 60–90; PULSE 94–120; RESP 20–25; TEMP 37.1–38.3; O2SAT 90–98
[2021-11-22] MEDS: FENTANYL 2,500MCG/NS250ML(*CRX 2,500 MCG/250 ML BAG 15 MCG IV CONT (00:55)
[2021-11-22] MEDS: LEVALBUTEROL NEB 1.25 MG/3 ML 0.63 MG INHALATION ×4 (02:10→19:56)
[2021-11-22] MEDS: IPRATROPIUM BR 0.02% INH SOLN 0.5 MG/2.5 ML VIAL INHALATION ×4 (02:10→19:56)
[2021-11-22] MEDS: MIDAZOLAM 100MG/NS 100ML(*CRX) 100 MG/100 ML BAG IV CONT (03:17)
[2021-11-22 04:15] LABS: Glucose Point of Care 323 mg/dl (65-105)
[2021-11-22] MEDS: INSULIN ASPART (*BKC) 100 UNITS/ML SUB-Q ×4 (04:15→22:02)
[2021-11-22 04:43] LABS: Basophils Absolute Auto 0.1 K/mm3 (0.0-0.1); Basophils Percent Auto 0.9 % (0.2-1.2); Hematocrit 31.7 % (37.0-47.0); Hemoglobin 10.1 g/dL (12.0-15.0); Immature Granulocyte Absolute 0.49 K/mm3 (0.00-0.031); Immature Granulocyte Percent A 5.5 % (0-0.5); Lymphocytes Absolute Auto 0.76 K/mm3 (0.9-3.2); Lymphocytes Percent Auto 8.5 % (18.3-44.2); Mean Corpuscular HGB Conc 31.9 g/dl (32-36); Mean Corpuscular Volume 91.1 fl (80-100); Mean Platelet Volume 9.8 fl (7.4-10.4); Monocytes Absolute Auto 0.3 K/mm3 (0.1-0.6); Monocytes Percent Auto 3.8 % (2.6-8.5); Neutrophils Absolute Auto 7.3 K/mm3 (1.3-6.7); Neutrophils Percent Auto 81.3 % (45.5-73.1); Platelet Count Result 283 k/mm3 (150-375); Red Blood Count 3.48 M/mm3 (4.2-5.4); Red Cell Distribution Width 14.6 % (11.5-14.5)
[2021-11-22 04:58] LABS: Lactic Acid Reflex 2.5 mmol/L (0.7-2.1)
[2021-11-22 04:59] LABS: Alveolar/Arterial O2 Gradient 474.1 mmHg; Carboxyhemoglobin 0.1 % THb (0-2.0); Fractional Inspired Oxygen 85 %; HCO3 ABG 27.3 mEq/l (22.0-26.0); Methemoglobin ABG 0.3 %THb (0-1.5); Oxygen Content ABG 12.8 %vol (16.0-22.0); Oxygen Saturation ABG 94.8 % (95.0-100.0); Oxyhemoglobin 94.2 % THb (90.0-100.0); PCO2 ABG 51.6 mmHg (35.0-45.0); PO2 ABG 78.4 mmHg (80.0-100.0); PO2 FiO2 Ratio Arterial Blood 0.92 %; Reduced Hemoglobin 5.4 %THb (0-5.0); Total Hemoglobin 9.6 g/dL (12.0-18.0); pH ABG 7.341 (7.350-7.450)
[2021-11-22 05:07] LABS: Device VENTILATOR; Modified Allen's Test Unable to perform; Site Drawn RIGHT RADIAL
[2021-11-22 05:08] LABS: Arterial Blood Gas PEEP 8 cmH2O; Arterial Blood Gas Tidal Volume 400 ml; Arterial Blood Gas Vent Mode CMV; Arterial Blood Gas Ventilator rate 20 /MIN
[2021-11-22 05:13] LABS: Alanine Aminotransferase 35 U/L (4-35); Albumin Level 2.4 g/dL (3.5-5.1); Alkaline Phosphatase 94 U/L (38-126); Anion Gap 8 mmol/L (8-16); Aspartate Amino Transferase 69 U/L (14-36); Bilirubin,Total 1.1 mg/dL (0.2-1.3); Blood Urea Nitrogen 64 mg/dL (7-17); Calcium 7.6 mg/dL (8.4-10.2); Carbon Dioxide 26 mmol/L (22-30); Chloride 100 mmol/L (98-107); Estimated CRCL calculation 60 ml/min; Estimated Glomerular Filt Rate 46; Glucose 348 mg/dL (65-110); Magnesium 2.6 mg/dL (1.6-2.3); Phosphorus 5.1 mg/dL (2.5-4.5); Potassium 4.5 mmol/L (3.4-5.0); Sodium 134 mmol/L (137-145)
[2021-11-22] MEDS: SODIUM CHLORIDE 0.9% IV 1,000 ML 100 ML IV CONT (05:58)
[2021-11-22] MEDS: HYDROCORTISONE SODIUM SUCCINATE 100 MG/2 ML VIAL IV PUSH ×3 (06:04→22:02)
[2021-11-22 07:39] LABS: CRP 30.7 mg/dL (<1.0)
[2021-11-22 07:43] LABS: Reflex Lactic Acid Yes or No Add Lactic
[2021-11-22] MEDS: INSULIN GLARGINE (*BKC) 100 UNITS/ML 20 UNITS SUB-Q (08:25)
[2021-11-22] MEDS: ENOXAPARIN 40 MG/0.4 ML SYRINGE SUB-Q (08:25)
[2021-11-22] MEDS: FAMOTIDINE 20 MG/2 ML VIAL IV PUSH ×2 (08:25→20:30)
[2021-11-22] MEDS: MINERAL OIL/WHITE PETROLATUM OINTMENT 1 APPLIC EACH EYE ×2 (08:25→20:30)
[2021-11-22 09:03] LABS: Hemoglobin A1C 8.5 % (<5.7)
--- NOTE | 2021-11-22 09:40 | WPDINTPN ---
Progress Note: A&P Assessment and Plan (1) Elevated troponin: Code(s): R77.8 - Other specified abnormalities of plasma proteins Status: Acute Assessment and Plan: Patient with elevated troponin, could be secondary to coronary artery disease or respiratory distress/type 2 infarct -holding full anticoagulation is patient getting thoracentesis -cardiology has been consulted, will await recommendations -has been ordered to evaluate for wall motion abnormalities and structural abnormalities (2) Septic shock: Code(s): A41.9 - Sepsis, unspecified organism; R65.21 - Severe sepsis with septic shock Status: Acute Assessment and Plan: Septic shock likely related to empyema, pneumonia, possible bacteremia -patient has received adequate IV fluid resuscitation -currently on Levophed, OFF vasopressin infusion, will maintain mean arterial pressures > 65-70 mmHg for adequate end organ perfusion -CT chest without contrast showed loculated pleural effusion bilaterally with compressive atelectasis, no abnormalities within the abdomen or pelvis. Fat stranding within the mediastinal soft tissues on the heart is a single focus of gas within the epicardial fat -will have intervention Radiology perform a left-sided thoracentesis today -surgery has been consulted - Continue Zosyn and vancomycin (11/21( -renal function improving, adequate urine output -11/21: blood and urine cultures pending - 11/21: Sputum cultures pending -continue maintenance IV fluids (3) Acute respiratory failure with hypoxia: Code(s): J96.01 - Acute respiratory failure with hypoxia Status: Acute Assessment and Plan: Acute respiratory failure likely related to compressive atelectasis secondary to bilateral loculated effusions -intubated on 11/21/2021 -currently on CMV mode of ventilation, peep of 5 and 100% FiO2, ABGs reviewed, ventilator adjusted, will increase PEEP to 8 and decrease FiO2 to maintain O2 sats greater than 92% -continue antibiotics as above -continue bronchodilators -I have ordered left-sided thoracentesis by Interventional Radiology -patient is sedated with fentanyl and Versed infusion, maintain RASS of 0 to -2 (4) Acute renal failure: Qualifiers: Acute renal failure type: unspecified Qualified Code(s): N17.9 - Acute kidney failure, unspecified Code(s): N17.9 - Acute kidney failure, unspecified Status: Acute Assessment and Plan: Patient with acute kidney injury likely related to hypotension, septic shock, ATN, infection -patient has had adequate IV fluids, will give additional Hespan -continue maintenance IV fluids -urine output and renal function are improving -continue to monitor urine output, renal function and electrolytes (5) Blood D-dimer assay positive: Code(s): R78.89 - Finding of other specified substances, not normally found in blood Status: Inactive Assessment and Plan: Elevated D-dimer, patient CRP also 37.0 -given her renal function patient cannot get a CTA to rule out PE. -patient cannot get a V/Q scan because she is intubated on [employer] do not take vented patient's -patient was given 1 dose of therapeutic Lovenox on at 10am (6) DVT prophylaxis: Code(s): Z29.9 - Encounter for prophylactic measures, unspecified Status: Acute Assessment and Plan: Will continue prophylactic Lovenox Additional Plan Nutrition: Will start tube feeds Stress ulcer prophylaxis: Famotidine Code status: Full code Critical care time spent: 34 minutes This dictation may have been done utilizing a voice recognition system. Attempts have been made to correct errors. However, there may be uncorrected grammatical, spelling, and recognition errors present. Due to a high probability of clinically significant, life threatening deterioration, the patient required my highest level of preparedness to intervene emergently and I personally spent this cri
--- NOTE | 2021-11-22 09:54 | ECG_ITS ---
Measurements Intervals Mina Rate: 111 P: 34 MA: 130 QRS: 24 QRSD: 101 T: 17 QT: 345 QTc: 470 Interpretive Statements SINUS TACHYCARDIA LOW QRS VOLTAGE IN PRECORDIAL LEADS ST ELEVATION IN INF/HIGH LAT LEADS- CONSIDER ACUTE INJURY OR PERICARDITIS OR SAMMY REPOLARIZATION ABNORMALITY ABNORMAL ECG Electronically Signed On 11-22-2021 15:33:04 MAINTENANCE SHOP CLERK by Nitesh Mcgregor D.O.
[2021-11-22 09:58] LABS: Albumin Level 2.1 g/dL (3.5-5.1)
--- NOTE | 2021-11-22 10:20 | PM.IMPN ---
Progress Note: A&P Assessment and Plan (1) Septic shock: Code(s): A41.9 - Sepsis, unspecified organism; R65.21 - Severe sepsis with septic shock Status: Acute Assessment and Plan: Septic shock likely related to empyema, pneumonia, possible bacteremia -patient has received adequate IV fluid resuscitation -currently on Levophed, OFF vasopressin infusion -CT chest without contrast showed loculated pleural effusion bilaterally with compressive atelectasis, no abnormalities within the abdomen or pelvis. Fat stranding within the mediastinal soft tissues on the heart is a single focus of gas within the epicardial fat -IR to perform dx thoracentesis -surgery has been consulted - Continue Zosyn and vancomycin (2) Acute respiratory failure with hypoxia: Code(s): J96.01 - Acute respiratory failure with hypoxia Status: Acute Assessment and Plan: Wean ventilator as tolerated (3) Acute renal failure: Qualifiers: Acute renal failure type: unspecified Qualified Code(s): N17.9 - Acute kidney failure, unspecified Code(s): N17.9 - Acute kidney failure, unspecified Status: Acute Assessment and Plan: Likely due to sepsis, shock Creatinine 11/21 1.4, 11/22 1.2 (4) Blood D-dimer assay positive: Code(s): R78.89 - Finding of other specified substances, not normally found in blood Status: Inactive Assessment and Plan: Cotninue prophylacitc enoxaparin (5) Elevated troponin: Code(s): R77.8 - Other specified abnormalities of plasma proteins Status: Acute Assessment and Plan: No ACS. Possible type 2 infarct Subjective Date/time seen: 11/22/21 10:20 Interval history: Septic shock, large left pleural effusion with compression atelectasis, pneumonia, acute respiratory failure requiring intubation on 11/21/2021 11/22/2021: Sedated and ventilated. Review of Systems Review of Systems: ROS unobtainable: Yes unobtainable due to endotracheal tube Exam Narrative: General: Intubated, sedated in no acute distress HEENT: Sclera is clear, ETT in place Neck: No JVD Respiratory: Coarse breath sounds bilaterally, decreased at bases and left side, no wheezing Cardiac: Sinus rhythm, tachycardia Abdomen: Soft, nontender, hypoactive bowel sounds Extremities: Palpable pedal pulses, no edema Neuro: Patient is in intubated, sedated. Skin: intact, warm Psych: sedated Objective Data Vital Signs Vital Signs: Vital Signs - 24 hr 11/21/21 10:44 11/21/21 11:04 11/21/21 12:00 Temperature 99.3 F Pulse Rate 116 H 120 H Respiratory Rate 27 H Blood Pressure 121/89 117/85 Pulse Oximetry 93 90 11/21/21 12:52 11/21/21 12:53 11/21/21 12:54 Temperature Pulse Rate 122 H 121 H Respiratory Rate 31 H 31 H Blood Pressure 133/87 Pulse Oximetry 11/21/21 13:55 11/21/21 14:00 11/21/21 16:00 Temperature 100.2 F H 100.6 F H Pulse Rate 116 H 122 H 122 H Respiratory Rate 30 H 30 H Blood Pressure 104/34 L 106/83 Pulse Oximetry 93 94 95 11/21/21 17:20 11/21/21 18:00 11/21/21 18:34 Temperature 99.9 F H Pulse Rate 119 H 118 H Respiratory Rate 28 H Blood Pressure 128/91 H 146/75 H Pulse Oximetry 97 95 11/21/21 18:35 11/21/21 18:39 11/21/21 20:00 Temperature 99.4 F Pulse Rate 112 H Respiratory Rate 23 H Blood Pressure 136/60 136/60 114/84 Pulse Oximetry 95 11/21/21 20:15 11/21/21 20:16 11/21/21 20:25 Temperature Pulse Rate 115 H 112 H 115 H Respiratory Rate 23 H 22 H 23 H Blood Pressure 114/84 Pulse Oximetry 96 11/21/21 20:28 11/21/21 21:05 11/21/21 21:18 Temperature Pulse Rate Respiratory Rate Blood Pressure 125/83 132/80 128/74 Pulse Oximetry 11/21/21 21:40 11/21/21 22:00 11/21/21 22:11 Temperature 99.9 F H Pulse Rate 119 H 119 H Respiratory Rate 21 H 21 H Blood Pressure 132/81 117/82 117/82 Pulse Oximetry 91 11/21/21 22:42 11/21/21 23:0
[2021-11-22 10:24] LABS: Lactate Dehydrogenase 590 U/L (313-618)
--- NOTE | 2021-11-22 10:34 | PM.CNCAR ---
Assessment and Plan Assessment and plan (1) Abnormal EKG: Code(s): R94.31 - Abnormal electrocardiogram [ECG] [EKG] Status: Acute Assessment and Plan: Patient's EKG today shows a possible lateral TN versus pericarditis. I suspect the latter in that the patient's ST segments are concave up, she has RI depression as well as no segmental wall motion abnormalities by echo. Check more troponins Limited echo tomorrow to re-evaluate effusion and LV function EKG tomorrow Even if this were a STEMI, the patient is too sick for emergent PCI at this time. No specific tx of pericardial effusion recommended at this time. (2) Elevated troponin: Code(s): R77.8 - Other specified abnormalities of plasma proteins Status: Acute Assessment and Plan: Odd troponin curve, wonder if there was a lab error, will obtain further troponins. (3) Pericardial effusion: Code(s): I31.3 - Pericardial effusion (noninflammatory) Status: Acute Assessment and Plan: By echo she had a trivial amount of pericardial fluid around the ventricles although there was a mild amount around the right atrium. By CT there was a large effusion. However it was mostly around the atrial on my personal review. No evidence of tamponade by echo. Repeat limited echo in the morning (4) Septic shock: Code(s): A41.9 - Sepsis, unspecified organism; R65.21 - Severe sepsis with septic shock Status: Acute Assessment and Plan: Very sick lady with multiorgan failure, pneumonia and probable empyema, ARF, etc. Improving somewhat. Treatment per Dr. Meneses. Thoracentesis of loculated pleural effusions today. (5) Right ventricular enlargement: Code(s): I51.7 - Cardiomegaly Status: Acute Assessment and Plan: Patient has right ventricular enlargement and hypokinesis with mild to moderate pulmonary hypertension and a history of PE in the past. FiO2 85%; high O2 requirements. Venous dopplers negative. PE is on the differential Agree with anticoagulation, though we need to watch for any evidence of hemorrhagic pericardial effusion.. Pulmonary CTA when renal function improves. History of Present Illness History of Present Illness Consult date/time: 11/22/21 10:34 Consult reason: Other (elevated trop) Reason For Visit: Severe sepsis, ARF, hypoxic respiratory failure, h Narrative: Aleah Almeida is a 61-year-old female admitted to the ICU with septic shock whom we were asked to see at the request of Dr. Wagner baer for advice and opinion regarding elevated troponins and an abnml EKG, in consultation. The pt has a h/o HTN, DM, hyperlipidemia and remote PE. The patient came to the emergency room 11/21/2021 with increasing shortness of breath and hypothermia. She had an elevated white count with bandemia, sodium 125, potassium of 2.3, BUN and creatinine 50/1.5, glucose 500, and an elevated lactic acid up to 6.5. BNP was 2100. COVID negative. She is in moderate acute renal failure. She had pleural effusions on her chest x-ray. She was thought to be in septic shock with pneumonia and possible empyema, and given IV fluids and antibiotics. She was intubated, currently on FiO2 85%. She requires vasopressors with Levophed and vasopressin (now off vasopressin). She has been febrile. She will be getting a thoracentesis today. She has been given some Lovenox x1 because of concern of possible PE. Her Echo showed nml LV fxn but RVE and hypokineis, and a trivial to small pericardial effusion. Review of Systems Review of Systems: ROS was obtained fr EMR, and Dr. Martel. ROS unobtainable: Yes unobtainable due to endotracheal tube, unobtainable due to medical condition and unobtainable due to mental status Respiratory: Respiratory: Reports dyspnea Psychiatric: Psychiatric: Reports anxiety (h/o anxiety) [facility] Past Medical History Medical History
--- NOTE | 2021-11-22 12:01 | ECG_ITS ---
Measurements Intervals [place] Rate: 113 P: 35 NJ: 126 QRS: 27 QRSD: 98 T: 17 QT: 348 QTc: 479 Interpretive Statements SINUS TACHYCARDIA LOW QRS VOLTAGE IN PRECORDIAL LEADS ST ELEVATION IN INF/LAT LEADS- CONSIDER ACUTE INJURY OR PERICARDITIS OR EARLY REPOLARIZATION ABNORMALITY BASELINE ARTIFACT- III ABNORMAL ECG Electronically Signed On 11-22-2021 15:34:03 OCCUPATIONAL THERAPIST'S ASSISTANT by Nitesh Mcgregor D.O.
[2021-11-22 12:54] LABS: Glucose Point of Care 340 mg/dl (65-105)
[2021-11-22 13:06] LABS: Troponin I < 0.012 ng/mL (0.000-0.034)
--- NOTE | 2021-11-22 13:44 | PM.CNGS ---
Assessment and Plan Assessment and plan (1) Septic shock: Code(s): A41.9 - Sepsis, unspecified organism; R65.21 - Severe sepsis with septic shock Status: Acute Assessment and Plan: likely secondary to jhoana PNA, empyema, cont abx, await thoracentesis and cx results (2) Empyema: Code(s): J86.9 - Pyothorax without fistula Status: Acute Assessment and Plan: see above, may need transfer to thoracic surgery for further intervention (3) Acute respiratory failure with hypoxia: Code(s): J96.01 - Acute respiratory failure with hypoxia Status: Acute Assessment and Plan: on vent, mgmt per brazing machine setter (4) Elevated troponin: Code(s): R77.8 - Other specified abnormalities of plasma proteins Status: Acute Assessment and Plan: cardiology workup pending History of Present Illness Consult details Consult date: 11/22/21 Reason for consult: other (sepsis, empyema) Requesting physician: Philomena Martel MD Narrative: Pt is a 61 y/o F presenting to hospital c septic shock secondary to jhoana PNA, empyema, bacteremia. Pt currently in ICU and intubated. All history is obtained via chart. Pt on pressors for hypotension and on broad spectrum abx. CT scan of chest is significant for jhoana loculated fluid collections L>R. Review of Systems Review of Systems: ROS unobtainable: Yes unobtainable due to endotracheal tube PMFSH Past Medical History Medical History Anxiety Dyslipidemia History of pulmonary embolism Hypertension Type 2 diabetes mellitus without complication, without long-term current use of insulin Surgical History Surgical History History of appendectomy History of repair of left rotator cuff Status post cholecystectomy Family History Family History Other Diabetes mellitus Family history of coronary artery disease Hypertension Social History Social History Social History: The patient lives at home with her 2 adult sons. 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 Smoking packs per day: 1 Smoking cigarettes per day: 20.0 Years smoked: 10 Smoking pack-years: 10.00 Smoking status: Current every day smoker Tobacco type: cigarettes Second hand tobacco smoke exposure: No Alcohol intake: current Substance use: never Spiritual care concerns: No Meds Home Medications and Allergies Home Medications Medication Instructions Recorded Confirmed Type metformin 1,000 mg tablet 1,000 mg PO DAILY #90 tablet 03/03/21 11/21/21 Rx lisinopril 10 mg PO DAILY 11/21/21 11/21/21 History simvastatin 20 mg PO DAILY 11/21/21 11/21/21 History Allergies Allergy/AdvReac Type Severity Reaction Status Date / Time bupropion Allergy Mild Palpitation Verified 11/20/21 20:12 s iodine Allergy Unknown Anaphylaxis Verified 11/20/21 20:12 Vital Signs Vital Signs - 24 hr 11/21/21 13:55 11/21/21 14:00 11/21/21 16:00 Temperature 37.9 C H 38.1 C H Pulse Rate 116 H 122 H 122 H Respiratory Rate 30 H 30 H Blood Pressure 104/34 L 106/83 Pulse Oximetry 93 94 95 11/21/21 17:20 11/21/21 18:00 11/21/21 18:34 Temperature 37.7 C H Pulse Rate 119 H 118 H Respiratory Rate 28 H Blood Pressure 128/91 H 146/75 H Pulse Oximetry 97 95 11/21/21 18:35 11/21/21 18:39 11/21/21 20:00 Temperature 37.4 C Pulse Rate 112 H Respiratory Rate 23 H Blood Pressure 136/60 136/60 114/84 Pulse Oximetry 95 11/21/21 20:15 11/21/21 20:16 11/21/21 20:25 Temperature Pulse Rate 115 H 112 H 115 H Respiratory Rate 23 H 22 H 23 H Blood Pressure 114/84 Pulse Oximetry 96 11/21/21 20:28 11/21/21 21:05 11/21/21 21:18 Temperature Pulse Rate Respiratory Rate Blood Pressure 125/83 132/80 128/74 Pulse Oximetry
[2021-11-22 15:57] LABS: Glucose Point of Care 299 mg/dl (65-105)
[2021-11-22 16:03] LABS: Troponin I < 0.012 ng/mL (0.000-0.034)
[2021-11-22 19:08] LABS: Troponin I < 0.012 ng/mL (0.000-0.034)
[2021-11-22 19:42] LABS: Appearance Pleural Fluid Turbid (Clear); Color Pleural Fluid Yellow (Colorless); Pleural fluid source Pleural fluid
[2021-11-22 19:43] LABS: Macrophages Pleural Fluid 100 %; RBC Pleural Fluid 33424 /uL (0-0)
--- NOTE | 2021-11-22 21:13 | PC.NURSE ---
Talked with father Devin Winn about the need to transfer patient to outside facility for the need for thoracic surgery consult. Father gave consent to transfer, all questions answered at this time.
[2021-11-22 22:20] LABS: Glucose Point of Care 324 mg/dl (65-105)
[2021-11-22] MEDS: SODIUM CHLORIDE 0.9% IV 1,000 ML 75 ML IV CONT (23:47)
[2021-11-22] MEDS: FENTANYL 2,500MCG/NS250ML(*CRX 2,500 MCG/250 ML BAG IV CONT (23:47)
[2021-11-23] VITALS (30 sets, daily range): BP systolic 84–150; BP diastolic 60–92; PULSE 86–111; RESP 20–30; TEMP 36.9–38.2; O2SAT 92–100; BMI 41.6
[2021-11-23] MEDS: LEVALBUTEROL NEB 1.25 MG/3 ML 0.63 MG INHALATION ×4 (02:36→19:30)
[2021-11-23] MEDS: IPRATROPIUM BR 0.02% INH SOLN 0.5 MG/2.5 ML VIAL INHALATION ×4 (02:36→19:30)
[2021-11-23] MEDS: INSULIN ASPART (*BKC) 100 UNITS/ML SUB-Q ×3 (04:08→16:51)
[2021-11-23 04:19] LABS: Hematocrit 30.4 % (37.0-47.0); Hemoglobin 9.5 g/dL (12.0-15.0); Mean Corpuscular HGB Conc 31.3 g/dl (32-36); Mean Corpuscular Hemoglobin 29.2 pg (26-34); Mean Corpuscular Volume 93.5 fl (80-100); Mean Platelet Volume 9.6 fl (7.4-10.4); Platelet Count Result 213 k/mm3 (150-375); Red Blood Count 3.25 M/mm3 (4.2-5.4); Red Cell Distribution Width 15.1 % (11.5-14.5); White Blood Count 9.8 K/mm3 (4.5-10.0)
[2021-11-23 04:29] LABS: Alanine Aminotransferase 37 U/L (4-35); Albumin Level 2.5 g/dL (3.5-5.1); Alkaline Phosphatase 95 U/L (38-126); Anion Gap 7 mmol/L (8-16); Aspartate Amino Transferase 56 U/L (14-36); Bilirubin,Total 0.7 mg/dL (0.2-1.3); Blood Urea Nitrogen 60 mg/dL (7-17); Carbon Dioxide 30 mmol/L (22-30); Chloride 96 mmol/L (98-107); Estimated CRCL calculation 70 ml/min; Estimated Glomerular Filt Rate 56; Glucose 388 mg/dL (65-110); Lactic Acid Reflex 1.9 mmol/L (0.7-2.1); Magnesium 2.9 mg/dL (1.6-2.3); Phosphorus 3.2 mg/dL (2.5-4.5); Potassium 4.4 mmol/L (3.4-5.0); Sodium 133 mmol/L (137-145)
[2021-11-23 04:35] LABS: Alveolar/Arterial O2 Gradient 449.2 mmHg; Base Excess ABG 3.6 mEq/l (+/-2.0); Carboxyhemoglobin 0.3 % THb (0-2.0); Fractional Inspired Oxygen 80 %; HCO3 ABG 29.2 mEq/l (22.0-26.0); Methemoglobin ABG 0.2 %THb (0-1.5); Oxygen Saturation ABG 93.9 % (95.0-100.0); Oxyhemoglobin 93.2 % THb (90.0-100.0); PCO2 ABG 48.5 mmHg (35.0-45.0); PO2 ABG 70.3 mmHg (80.0-100.0); PO2 FiO2 Ratio Arterial Blood 0.88 %; Reduced Hemoglobin 6.3 %THb (0-5.0); Total Hemoglobin 11.4 g/dL (12.0-18.0); pH ABG 7.397 (7.350-7.450)
[2021-11-23 04:37] LABS: Device VENTILATOR; Modified Allen's Test Unable to perform; Site Drawn LEFT RADIAL
[2021-11-23 04:38] LABS: Arterial Blood Gas PEEP 8 cmH2O; Arterial Blood Gas Tidal Volume 400 ml; Arterial Blood Gas Vent Mode CMV; Arterial Blood Gas Ventilator rate 20 /MIN
[2021-11-23 04:45] LABS: Glucose Point of Care 353 mg/dl (65-105)
[2021-11-23 05:42] LABS: Atypical Lymphocytes Present; Band Neutrophils Percent 43 % (0-6); Lymphocytes Absolute Manual 1.66 K/mm3 (1.1-4.5); Metamyelocytes Percent 2 %; Monocytes Absolute Manual 0.29 K/mm3 (0.1-0.90); Monocytes Percent Manual 3 % (3-9); Neutrophils Absolute Manual 7.64 K/mm3 (1.7-7.2); Neutrophils Percent Manual 35 % (46-73); Platelet Estimate Adequate (Adequate); Total Cells Counted 100
[2021-11-23] MEDS: HYDROCORTISONE SODIUM SUCCINATE 100 MG/2 ML VIAL IV PUSH (05:53)
--- NOTE | 2021-11-23 06:55 | PM.EVENT ---
Event Note Event Note Event Note: 11/23/2021 at 11:00 p.m. The patient is pleural fluid came back consistent with empyema. I called [facility], and [facility] who all are not accepting any patients except for strokes or traumas. I called [facility] referral center and they have placed the patient on a waiting list for an ICU bed and evaluation by Cardiothoracic surgery at both [facility] and [facility] in [place]. They stated that they will call us back when a bed becomes available.
[2021-11-23] MEDS: PERFLUTREN LIPID MICROSPHERES 1.5 ML VIAL DILUTED TO 10 ML TOTAL VOLUME IV PUSH ×2 (07:00→08:07)
--- NOTE | 2021-11-23 07:00 | ECHO_ITS ---
Patient Info Name: Aleah Almeida Age: 61 years : 1960 Gender: Female Ht: 68 in Wt: 255 lbs BSA: 2.41 m2 HR: 104 bpm BP: 111 / 70 mmHg Heart Rhythm: Sinus Rhythm Exam Date: 11/23/2021 8:07 AM Exam Location: [facility] Patient Status: Inpatient Admit Date: 11/21/2021 Staff Ordering Physician: Azul Martinez MD Criminal Justice Faculty: Eliseo Li RDCS, RT Attending Provider: Aydee Hanson DO Referring Physician: Michelle CALLOWAY; Exam Type: CA echo limited w contrast Study Info Indications I31.3 - Pericardial effusion (noninflammatory) Limited two-dimensional transthoracic echocardiogram is performed with contrast. Summary 1. Limited echocardiogram performed re-evaluate LV function and pericardial fluid. 2. Definity contrast injected to improve visualization. 3. Left ventricular systolic function remains normal. 4. Right ventricle once again is noted to be dilated. 5. No discernible pericardial fluid on this exam. 6. Compared to echocardiogram done about 2 weeks ago a trivial pericardial effusion is no longer visible. Left Ventricle Left ventricular chamber dimension is normal. Left ventricular systolic function is normal, estimated at 50-55%. Right Ventricle Right ventricular chamber dimension is moderately enlarged. Left Atria Left atrial chamber dimension is normal. Right Atria Right atrial chamber dimension is mildly enlarged. Aortic Valve The aortic valve is normal. Pulmonic Valve The pulmonic valve is not well visualized. Mitral Valve The mitral valve has normal leaflets. Tricuspid Valve The tricuspid valve leaflets are not well visualized. Pericardium/Pleural The pericardium appears normal. Aorta The aortic root size at the sinus of Valsalva is normal. Ventricles Name Value Normal LV Fractional Shortening/Ejection Fraction 2D/MM LV Diastolic Volume (4C MOD) 59 ml LV EF (4C MOD) 52 % LV Diastolic Volume (2C MOD) 69 ml LV EF (2C MOD) 53 % LV Diastolic Volume (BP MOD) 65 ml 46-106 LV Diastolic Volume Index (BP MOD) 27 ml/m2 29-61 LV Systolic Volume (BP MOD) 32 ml 14-42 LV Systolic Volume Index (BP MOD) 13 ml/m2 8-24 LV EF (BP MOD) 51 % 54-74 LV Diastolic Length (4C) 6.9 cm LV Systolic Length (4C) 5.9 cm LV Stroke Volume (4C MOD) 31 ml Report Signatures
[2021-11-23] MEDS: ENOXAPARIN 40 MG/0.4 ML SYRINGE SUB-Q (07:54)
[2021-11-23] MEDS: MINERAL OIL/WHITE PETROLATUM OINTMENT 1 APPLIC EACH EYE ×2 (07:56→20:29)
[2021-11-23] MEDS: FAMOTIDINE 20 MG/2 ML VIAL IV PUSH ×2 (07:56→20:28)
[2021-11-23 07:59] LABS: Glucose Point of Care 392 mg/dl (65-105)
[2021-11-23] MEDS: INSULIN GLARGINE (*BKC) 100 UNITS/ML 35 UNITS SUB-Q (08:02)
--- NOTE | 2021-11-23 08:08 | IVDEFINITY ---
Prior to administration of IV Definity the patient was educated on the risks and benefits of the imaging enhancing agent including potential adverse side effects. The patient verbalized understanding. Allergies were verified. No exclusion criteria were identified and at least one of the following inclusion criteria were met: 1) physician request, 2) patient technically difficult to image (per the [place] [employer]ocardi[employer] guidelines of two or more segments not discernable within the apical view), or 3) questionable left ventricular function. ?
--- NOTE | 2021-11-23 09:12 | WPDINTPN ---
Progress Note: A&P Assessment and Plan (1) Elevated troponin: Code(s): R77.8 - Other specified abnormalities of plasma proteins Status: Acute Assessment and Plan: Patient with elevated troponin some EKG changes 11/22/2021 -discussed with cardiology, likely pericarditis, -repeat troponins were negative -echocardiogram on 11/21/2021 showed normal LV systolic function with EF of 60-65%. Moderate right ventricular enlargement with moderate hypokinesis, mild pulmonary hypertension with RVSP of 46 mmHg, trivial pericardial effusion -cardiology has ordered a repeat echo for 11/23 to evaluate for wall motion abnormalities (2) Septic shock: Code(s): A41.9 - Sepsis, unspecified organism; R65.21 - Severe sepsis with septic shock Status: Acute Assessment and Plan: Septic shock likely related to empyema, pneumonia, possible bacteremia -11/22/2021: Left-sided thoracentesis with 1200 mL of purulent drainage -patient is off vasopressin -CT chest without contrast showed loculated pleural effusion bilaterally with compressive atelectasis, no abnormalities within the abdomen or pelvis. Fat stranding within the mediastinal soft tissues on the heart is a single focus of gas within the epicardial fat -surgery has been consulted - Continue Zosyn and vancomycin (11/21) -renal function improving, adequate urine output -11/21: blood and urine cultures are negative - 11/21: Sputum cultures no growth -11/22: Pleural fluid Gram stain showing moderate Gram-negative bacilli line Gram-positive cocci (3) Acute respiratory failure with hypoxia: Code(s): J96.01 - Acute respiratory failure with hypoxia Status: Acute Assessment and Plan: Acute respiratory failure likely related to compressive atelectasis secondary to bilateral loculated effusions -intubated on 11/21/2021 -currently on CMV mode of ventilation, peep of 5 and 100% FiO2, ABGs reviewed, ventilator adjusted, will increase PEEP to 8 and decrease FiO2 to maintain O2 sats greater than 92% -continue antibiotics as above -continue bronchodilators -will sedation vacation to evaluate mental status -patient is sedated with fentanyl and Versed infusion, maintain RASS of 0 to -2 (4) Acute renal failure: Qualifiers: Acute renal failure type: unspecified Qualified Code(s): N17.9 - Acute kidney failure, unspecified Code(s): N17.9 - Acute kidney failure, unspecified Status: Acute Assessment and Plan: RESOLVED Patient with acute kidney injury likely related to hypotension, septic shock, ATN, infection -patient has had adequate IV fluids, will give additional Hespan -continue maintenance IV fluids -urine output and renal function are improving -continue to monitor urine output, renal function and electrolytes (5) Blood D-dimer assay positive: Code(s): R78.89 - Finding of other specified substances, not normally found in blood Status: Inactive Assessment and Plan: Elevated D-dimer, patient CRP also 37.0 -given her renal function patient cannot get a CTA to rule out PE. -patient cannot get a V/Q scan because she is intubated on ourmachines do not take vented patient's -patient was given 1 dose of therapeutic Lovenox on at 10am (6) DVT prophylaxis: Code(s): Z29.9 - Encounter for prophylactic measures, unspecified Status: Acute Assessment and Plan: Will continue prophylactic Lovenox (7) Type 2 diabetes mellitus with hyperglycemia: Qualifiers: Diabetes mellitus termite technician insulin use: without alf use Qualified Code(s): E11.65 - Type 2 diabetes mellitus with hyperglycemia Code(s): E11.65 - Type 2 diabetes mellitus with hyperglycemia Status: Acute Assessment and Plan: Hyperglycemia related with type 2 diabetes, could be related to stress dose steroid -weaning stress dose steroids to off -increase Lantus (8) Empyema: Code(s): J86.9 - Pyothorax withou
--- NOTE | 2021-11-23 09:21 | PM.IMPN ---
Progress Note: A&P Assessment and Plan (1) Septic shock: Code(s): A41.9 - Sepsis, unspecified organism; R65.21 - Severe sepsis with septic shock Status: Acute Assessment and Plan: Septic shock likely related to empyema, pneumonia, and possibly bacteremia. BCx 11/20 NGTD. Patient received adequate IV fluid resuscitation. She has been weaned off all pressors on 11/22. CT chest without contrast showed loculated pleural effusion bilaterally with compressive atelectasis but no abnormalities within the abdomen or pelvis. Started on Zosyn and vancomycin (11/21). Repeat Cx pending. Gram stain positive from pleural fluid. Started on stress dose steroids. General surgery consulted for chest tube. BP remaining stable. Continue maintenance IV fluids. (2) Acute respiratory failure with hypoxia: Code(s): J96.01 - Acute respiratory failure with hypoxia Status: Acute Assessment and Plan: Acute respiratory failure likely related to septic shock, PNA with empyema and compressive atelectasis secondary to bilateral loculated effusions requiring intubation on 11/21. She remains intubated and sedated. Continue current antibiotics. Continue bronchodilators. Appreciate steno typist input. (3) Empyema: Code(s): J86.9 - Pyothorax without fistula Status: Acute Assessment and Plan: CT chest 11/21showing moderate-sized loculated pleural effusions with passive atelectasis of the lungs. Ultrasound-guided thoracentesis 11/22 yielding 1200 mL of opaque, kincaid fluid. Gram stain showing gram negative bacilli and gram positive cocci. Source unclear. Anaerobic from bad dentition? Needs chest tube (probably bilaterally). General surgery consulted for chest tube. Discussed with steno typist. (4) Abnormal EKG: Code(s): R94.31 - Abnormal electrocardiogram [ECG] [EKG] Status: Acute Assessment and Plan: Patient with normal troponin series but EKG changes with ST elevation in the high lateral leads. Echo 11/21 showed normal LV systolic function with EF of 60-65%, moderate right ventricular enlargement with moderate hypokinesis, mild pulmonary hypertension with RVSP of 46 mmHg, and trivial pericardial effusion. Probably repolarization or pericarditis given the empyema. Cardiology following and appreciate their input. (5) Pericardial effusion: Code(s): I31.3 - Pericardial effusion (noninflammatory) Status: Acute Assessment and Plan: CT scan showing large pericardial effusion but on review of the images, it appears this fluid collection is outside the pericardium. Echo showing on trivial pericardial effusion. Plan to repeat Echo to verify. (6) Blood D-dimer assay positive: Code(s): R78.89 - Finding of other specified substances, not normally found in blood Status: Inactive Assessment and Plan: Patient with elevated D-dimer to 2.5 but not unexpected given the septic shock on presentation. Venous dopplers negative for LE DVT. She was on therapeutic dosing of Lovenox but adjusted to to prophylactic dosing now. Was in renal failure but Cr 1.0 today. She has allergy to contrast. Consider pre-treatment for CTA chest to exclude PE and also to follow up on loculated effusions. (7) Acute renal failure: Qualifiers: Acute renal failure type: unspecified Qualified Code(s): N17.9 - Acute kidney failure, unspecified Code(s): N17.9 - Acute kidney failure, unspecified Status: Acute Assessment and Plan: Patient with acute kidney injury likely related to hypotension, septic shock, ATN, and infection. Patient was given adequate IV fluids. Cr was 1.57 but back down to 1.0 today. UOP improved. Continue to monitor urine output, renal function and electrolytes. (8) Type 2 diabetes mellitus with hyperglycemia: Qualifiers: Diabetes mellitus care home insulin use: without care home use Qualified Code(s): E11.65 - Type 2 diabetes mellitus with hype
--- NOTE | 2021-11-23 09:37 | P.PNCA_ITS ---
Progress Note: A&P Assessment and Plan (1) Abnormal EKG: Code(s): R94.31 - Abnormal electrocardiogram [ECG] [EKG] <Nely GuptaPankaj TRACY Wong - Last Filed: 11/23/21 14:22> Status: Acute <Nely WongTRACY - Last Filed: 11/23/21 14:22> Assessment and Plan: Patient's EKG today shows a possible lateral [place] versus pericarditis. EKG consistent with pericarditis - ST segments are concave up, she has [place] depression as well as no segmental wall motion abnormalities by echo. * Repeat troponins have been negative. * Echo showed normal systolic function with an ejection fraction of 60-65%. No segmental wall motion abnormalities. She has some right ventricular dysfunction. Mild pulmonary hypertension, PASP 46mmHg. Trivial pericardial effusion. * No indication for any invasive ischemic work up at this time * No specific tx of pericardial effusion recommended at this time. <TRACY Kaur - Last Filed: 11/23/21 14:22> (2) Elevated troponin: Code(s): R77.8 - Other specified abnormalities of plasma proteins <TRACY Kaur - Last Filed: 11/23/21 14:22> Status: Acute <TRACY Kaur - Last Filed: 11/23/21 14:22> Assessment and Plan: First troponin result reported as 13.5 ng/L vs ng/mL. Normal range when reported ng/L is 0.00 - 60.4, this first troponin was not elevated. Subsequent samples have been reported correctly and have been negative. <TRACY Kaur - Last Filed: 11/23/21 14:22> (3) Pericardial effusion: Code(s): I31.3 - Pericardial effusion (noninflammatory) <MEGAN Kaur - Last Filed: 11/23/21 14:22> Status: Acute <TRACY Kaur - Last Filed: 11/23/21 14:22> Assessment and Plan: By echo she had a trivial amount of pericardial fluid around the v entricles although there was a mild amount around the right atrium. By CT there was a large effusion. * No evidence of tamponade by echo. * Repeat limited echo with resolution of trivial pericardial effusion <TRACY Kaur - Last Filed: 11/23/21 14:22> (4) Septic shock: Code(s): A41.9 - Sepsis, unspecified organism; R65.21 - Severe sepsis with septic shock <TRACY Kaur - Last Filed: 11/23/21 14:22> Status: Acute <TRACY Kaur - Last Filed: 11/23/21 14:22> Assessment and Plan: Very sick lady with multiorgan failure, pneumonia and probable empyema, ARF, etc. Improving somewhat. Treatment per Dr. Martel. * Thoracentesis of loculated pleural effusions yesterday * Remains on vasopressor support, mechanically ventilated * Management per critical care service <TRACY Kaur - Last Filed: 11/23/21 14:22> (5) Right ventricular enlargement: Code(s): I51.7 - Cardiomegaly <TRACY Kaur - Last Filed: 11/23/21 14:22> Status: Acute <TRACY Kaur - Last Filed: 11/23/21 14:22> Assessment and Plan: Patient has right ventricular enlargement and hypokinesis with mild to moderate pulmonary hypertension and a history of PE in the past. FiO2 80%; high O2 requirements. Venous dopplers negative. * PE is on the differential * Agree with anticoagulation, though we need to watch for any evidence of hemorrhagic pericardial effusion.. * Chest CTA when renal function improves <TRACY Kaur - Last Filed: 11/23/21 14:22> Additional Plan Attending Addendum: I have personally seen and examined this patient at bedside. I agree with the above documentation and plan of care as outlined. -patient remains critically ill empyema, sepsis and
--- NOTE | 2021-11-23 09:37 | PM.PNCARD ---
Progress Note: A&P Assessment and Plan (1) Abnormal EKG: Code(s): R94.31 - Abnormal electrocardiogram [ECG] [EKG] <TRACY Kaur - Last Filed: 11/23/21 14:22> Status: Acute <Nely A. JudithTRACY rodríguez - Last Filed: 11/23/21 14:22> Assessment and Plan: Patient's EKG today shows a possible lateral [place] versus pericarditis. EKG consistent with pericarditis - ST segments are concave up, she has [place] depression as well as no segmental wall motion abnormalities by echo. Repeat troponins have been negative. Echo showed normal systolic function with an ejection fraction of 60-65%. No segmental wall motion abnormalities. She has some right ventricular dysfunction. Mild pulmonary hypertension, PASP 46mmHg. Trivial pericardial effusion. No indication for any invasive ischemic work up at this time No specific tx of pericardial effusion recommended at this time. <TRACY Kaur - Last Filed: 11/23/21 14:22> (2) Elevated troponin: Code(s): R77.8 - Other specified abnormalities of plasma proteins <TRACY Kaur - Last Filed: 11/23/21 14:22> Status: Acute <TRACY Kaur - Last Filed: 11/23/21 14:22> Assessment and Plan: First troponin result reported as 13.5 ng/L vs ng/mL. Normal range when reported ng/L is 0.00 - 60.4, this first troponin was not elevated. Subsequent samples have been reported correctly and have been negative. <TRACY Kaur - Last Filed: 11/23/21 14:22> (3) Pericardial effusion: Code(s): I31.3 - Pericardial effusion (noninflammatory) <TRACY Kaur - Last Filed: 11/23/21 14:22> Status: Acute <TRACY Kaur - Last Filed: 11/23/21 14:22> Assessment and Plan: By echo she had a trivial amount of pericardial fluid around the ventricles although there was a mild amount around the right atrium. By CT there was a large effusion. No evidence of tamponade by echo. Repeat limited echo with resolution of trivial pericardial effusion <TRACY Kaur - Last Filed: 11/23/21 14:22> (4) Septic shock: Code(s): A41.9 - Sepsis, unspecified organism; R65.21 - Severe sepsis with septic shock <TRACY Kaur - Last Filed: 11/23/21 14:22> Status: Acute <TRACY Kaur - Last Filed: 11/23/21 14:22> Assessment and Plan: Very sick lady with multiorgan failure, pneumonia and probable empyema, ARF, etc. Improving somewhat. Treatment per Dr. Martel. Thoracentesis of loculated pleural effusions yesterday Remains on vasopressor support, mechanically ventilated Management per critical care service <TRACY Kaur - Last Filed: 11/23/21 14:22> (5) Right ventricular enlargement: Code(s): I51.7 - Cardiomegaly <TRACY Kaur - Last Filed: 11/23/21 14:22> Status: Acute <TRACY Kaur - Last Filed: 11/23/21 14:22> Assessment and Plan: Patient has right ventricular enlargement and hypokinesis with mild to moderate pulmonary hypertension and a history of PE in the past. FiO2 80%; high O2 requirements. Venous dopplers negative. PE is on the differential Agree with anticoagulation, though we need to watch for any evidence of hemorrhagic pericardial effusion.. Chest CTA when renal function improves <TRACY Kaur - Last Filed: 11/23/21 14:22> Additional Plan Attending Addendum: I have personally seen and examined this patient at bedside. I agree with the above documentation and plan of care as outlined. -patient remains critically ill empyema, sepsis and septic shock remains intubated now weaned off vasopressin. CT chest with loculated pleural effusions, trivial to small pericardial effusion. Pleural fluid Gram stain positive gram-negative bacilli Gram-positive cocci, blood cultures negative to date. Patient is awaiting transfer to outside hospital [facility]. Patient mao
[2021-11-23] MEDS: LIDOCAINE HCL 1% PF INJ 5 ML VIAL INFILTRATE (11:25)
[2021-11-23] MEDS: HYDROCORTISONE SODIUM SUCCINATE 100 MG/2 ML VIAL 50 MG IV PUSH (12:44)
[2021-11-23 12:55] LABS: Glucose Point of Care 370 mg/dl (65-105)
--- NOTE | 2021-11-23 13:15 | PM.PNGS ---
Progress Note: A&P Assessment and Plan (1) Empyema: Code(s): J86.9 - Pyothorax without fistula Status: Acute Assessment and Plan: 2/ L thoracentesis yielding 1200 mL fluid, with gram stain showing many WBCs and moderate gram negative bacilli, light gram positive cocci Not having increasing O2 requirements. Repeat CT showing bilateral mod pleural effusion. Awaiting transfer to tertiary care facility for cardiothoracic surgery eval, no current beds available. If she has a decline in her respiratory status, we could consider chest tube placement, continue to monitor. (2) Septic shock: Code(s): A41.9 - Sepsis, unspecified organism; R65.21 - Severe sepsis with septic shock Status: Acute Assessment and Plan: Likely secondary to jhoana PNA, Empyema Cont IV abx, await thoracentesis and cx results (3) Acute respiratory failure with hypoxia: Code(s): J96.01 - Acute respiratory failure with hypoxia Status: Acute Assessment and Plan: On mechanical ventilator, managment per industrial organizational psychologist Additional Plan I have discussed the patient's case and plan of care with Dr. Palomares. Subjective Subjective Date/Time Seen: 11/23/21 10:15 Interval history: Patient seen and examined in the ICU. She is intubated and sedated. Review of Systems Review of Systems: ROS unobtainable: Yes unobtainable due to endotracheal tube Exam Const: General: ill appearing Nutritional Appearance: obese Other: intubated, sedated Resp: Effort & Inspection: other (on mechanical ventilator) Auscultation: diminished lung sounds bilateral in the lower lung [place] Cardio: Rate: regular rate Rhythm: regular rhythm Neuro: Other: limited due to being intubated, sedated Psych: Insight: Limited insight present (Psych) Judgement: Limited judgement present (Psych) Objective Data Vital Signs Vital Signs: Vital Signs - 24 hr 11/22/21 13:16 11/22/21 13:59 11/22/21 14:00 Temperature 100.7 F H 100.7 F H Pulse Rate 109 H 114 H Respiratory Rate 25 H 20 Blood Pressure 90/67 L Pulse Oximetry 95 11/22/21 14:04 11/22/21 14:05 11/22/21 14:18 Temperature Pulse Rate 108 H 108 H 113 H Respiratory Rate 21 H 20 Blood Pressure 106/80 Pulse Oximetry 95 90 11/22/21 14:19 11/22/21 15:26 11/22/21 16:00 Temperature 100.1 F H 99.9 F H Pulse Rate 110 H 97 Respiratory Rate 20 20 Blood Pressure 94/79 L 90/60 L Pulse Oximetry 98 97 11/22/21 17:13 11/22/21 18:00 11/22/21 20:00 Temperature 99.8 F H 99.2 F Pulse Rate 94 98 103 H Respiratory Rate 20 20 Blood Pressure 98/74 L 95/70 L Pulse Oximetry 97 96 94 11/22/21 20:10 11/22/21 20:30 11/22/21 22:00 Temperature 98.8 F Pulse Rate 104 H 101 H 96 Respiratory Rate 20 20 20 Blood Pressure 96/69 L Pulse Oximetry 96 11/22/21 23:05 11/22/21 23:47 11/23/21 00:00 Temperature 98.9 F Pulse Rate 104 H 101 H 97 Respiratory Rate 20 20 Blood Pressure 94/63 L Pulse Oximetry 94 93 11/23/21 02:00 11/23/21 02:38 11/23/21 02:48 Temperature 98.9 F Pulse Rate 105 H 106 H 106 H Respiratory Rate 20 22 H 22 H Blood Pressure 86/77 L Pulse Oximetry 94 94 11/23/21 04:00 11/23/21 04:35 11/23/21 04:55 Temperature 98.9 F Pulse Rate 96 100 99 Respiratory Rate 20 21 H Blood Pressure 90/63 L Pulse Oximetry 93 97 11/23/21 05:54 11/23/21 06:00 11/23/21 08:00 Temperature 98.5 F 98.6 F Pulse Rate 103 H 103 H 104 H Respiratory Rate 22 H 22 H 27 H Blood Pressure 111/70 119/73 Pulse Oximetry 94 93 11/23/21 08:59 11/23/21 09:05 11/23/21 10:00 Temperature 98.5 F Pulse Rate 104 H 105 H 109 H Respiratory Rate 20 23 H Blood Pressure 115/78 Pulse Oximetry 93 92 11/23/21 10:54 11/23/21 12:00 Temperature 98.5 F Pulse Rate 102 H 109 H Respiratory Rate 21 H Blood Pressure 137/89 Pulse Oximetry 92 93 Intake/Output Intake/Output: Intake & Output 02/11/11/21/21 11/22/21 11/23/21 23:59 23:59
[2021-11-23 13:45] LABS: SARS-CoV-2 RNA PCR Negative
--- NOTE | 2021-11-23 16:00 | ECG_ITS ---
Measurements Intervals [place] Rate: 87 P: 14 WV: 115 QRS: 25 QRSD: 105 T: 14 QT: 363 QTc: 438 Interpretive Statements SINUS RHYTHM WITH SHORT [place] INTERVAL LOW QRS VOLTAGE IN PRECORDIAL LEADS ST ELEVATION IN INF/LAT LEADS- CONSIDER ACUTE INJURY OR PERICARDITIS OR EARLY REPOLARIZATION ABNORMALITY ABNORMAL ECG Electronically Signed On 11-23-2021 17:07:04 AIR DIRECTOR by Nitesh Mcgregor D.O.
[2021-11-23] MEDS: CENTRAL LINE FLUSH 10 ML IV PUSH ×5 (16:40→22:01)
[2021-11-23] MEDS: SODIUM CHLORIDE 0.9% IV 1,000 ML 75 ML IV CONT (16:41)
[2021-11-23 16:43] LABS: Troponin I < 0.012 ng/mL (0.000-0.034)
[2021-11-23 17:00] LABS: Glucose Point of Care 342 mg/dl (65-105)
[2021-11-23 17:56] LABS: Vancomycin Trough 13.5 ug/mL (10.0-20.0)
[2021-11-23 20:57] LABS: Glucose Point of Care 442 mg/dl (65-105)
[2021-11-23 21:31] LABS: Anion Gap 4 mmol/L (8-16); Blood Urea Nitrogen 37 mg/dL (7-17); Calcium 6.2 mg/dL (8.4-10.2); Carbon Dioxide 24 mmol/L (22-30); Chloride 80 mmol/L (98-107); Estimated CRCL calculation 137 ml/min; Estimated Glomerular Filt Rate > 60; Glucose 1154 mg/dL (65-110); Potassium 3.7 mmol/L (3.4-5.0); Sodium 108 mmol/L (137-145)
[2021-11-23 21:57] LABS: Anion Gap 2 mmol/L (8-16); Blood Urea Nitrogen 46 mg/dL (7-17); Calcium 7.9 mg/dL (8.4-10.2); Carbon Dioxide 33 mmol/L (22-30); Chloride 100 mmol/L (98-107); Estimated CRCL calculation 101 ml/min; Estimated Glomerular Filt Rate > 60; Glucose 456 mg/dL (65-110); Sodium 135 mmol/L (137-145)
--- NOTE | 2021-11-23 22:11 | ECG_ITS ---
Measurements Intervals [place] Rate: 157 P: [place]: 0 QRS: 41 QRSD: 112 T: -10 QT: 305 QTc: 494 Interpretive Statements ATRIAL FLUTTER/TACHYCARDIA WITH RAPID VENTRICULAR RESPONSE LOW QRS VOLTAGE IN PRECORDIAL LEADS BORDERLINE ST-T WAVE ABNORMALITY- INF/LAT LEADS BASELINE WANDER- I, II, III, V3-V6 ABNORMAL ECG Electronically Signed On 11-24-2021 7:32:28 TOLL OPERATOR by Nitesh Mcgregor D.O.
[2021-11-23] MEDS: METOPROLOL TARTRATE INJ 5 MG/5 ML VIAL IV PUSH (22:32)
[2021-11-23] MEDS: INSULIN GLARGINE (*BKC) 100 UNITS/ML 30 UNITS SUB-Q (22:32)
[2021-11-24] VITALS (23 sets, daily range): BP systolic 109–159; BP diastolic 79–106; PULSE 99–168; RESP 22–35; TEMP 37.1–38.4; O2SAT 93–97
[2021-11-24] MEDS: HYDROCORTISONE SODIUM SUCCINATE 100 MG/2 ML VIAL 50 MG IV PUSH (00:31)
[2021-11-24] MEDS: INSULIN ASPART (*BKC) 100 UNITS/ML 12 UNITS SUB-Q (00:32)
[2021-11-24 00:45] LABS: Glucose Point of Care 444 mg/dl (65-105)
[2021-11-24] MEDS: IPRATROPIUM BR 0.02% INH SOLN 0.5 MG/2.5 ML VIAL INHALATION ×2 (02:00→08:17)
[2021-11-24] MEDS: LEVALBUTEROL NEB 1.25 MG/3 ML 0.63 MG INHALATION ×2 (02:01→08:17)
[2021-11-24] MEDS: dilTIAZem 100 MG/100 ML 100 MG/100 ML BAG IV CONT (02:09)
[2021-11-24] MEDS: dilTIAZem HCl INJ 25 MG/5 ML VIAL 20 MG IV PUSH (02:10)
[2021-11-24] MEDS: AMIODARONE 150 MG/D5W 100 ML 150 MG/100 ML BAG 600 MG IV CONT ×2 (04:36→06:26)
[2021-11-24] MEDS: AMIODARONE 360 MG/D5W 200 ML 360 MG/200 ML BAG 33.33 MG IV CONT (04:37)
[2021-11-24 04:41] LABS: Hematocrit 32.7 % (37.0-47.0); Hemoglobin 9.9 g/dL (12.0-15.0); Mean Corpuscular HGB Conc 30.3 g/dl (32-36); Mean Corpuscular Hemoglobin 28.9 pg (26-34); Mean Corpuscular Volume 95.3 fl (80-100); Mean Platelet Volume 9.7 fl (7.4-10.4); Platelet Count Result 244 k/mm3 (150-375); Red Blood Count 3.43 M/mm3 (4.2-5.4); Red Cell Distribution Width 15.1 % (11.5-14.5); White Blood Count 13.4 K/mm3 (4.5-10.0)
[2021-11-24] MEDS: CENTRAL LINE FLUSH 10 ML IV PUSH ×4 (05:00→12:56)
[2021-11-24 05:09] LABS: Lactic Acid Reflex 2.4 mmol/L (0.7-2.1)
[2021-11-24 05:12] LABS: Glucose Point of Care 463 mg/dl (65-105)
[2021-11-24 05:17] LABS: Alanine Aminotransferase 33 U/L (4-35); Albumin Level 2.4 g/dL (3.5-5.1); Alkaline Phosphatase 109 U/L (38-126); Anion Gap 4 mmol/L (8-16); Aspartate Amino Transferase 40 U/L (14-36); Bilirubin,Total 0.8 mg/dL (0.2-1.3); Blood Urea Nitrogen 44 mg/dL (7-17); Calcium 7.9 mg/dL (8.4-10.2); Carbon Dioxide 33 mmol/L (22-30); Chloride 102 mmol/L (98-107); Estimated CRCL calculation 137 ml/min; Estimated Glomerular Filt Rate > 60; Glucose 431 mg/dL (65-110); Magnesium 2.7 mg/dL (1.6-2.3); Phosphorus 1.7 mg/dL (2.5-4.5); Potassium 5.6 mmol/L (3.4-5.0); Sodium 139 mmol/L (137-145)
[2021-11-24 05:22] LABS: Alveolar/Arterial O2 Gradient 356.3 mmHg; Carboxyhemoglobin 0.4 % THb (0-2.0); Fractional Inspired Oxygen 65 %; HCO3 ABG 32.4 mEq/l (22.0-26.0); Methemoglobin ABG 0.3 %THb (0-1.5); Oxygen Content ABG 14.5 %vol (16.0-22.0); Oxygen Saturation ABG 92.2 % (95.0-100.0); Oxyhemoglobin 90.5 % THb (90.0-100.0); PCO2 ABG 44.3 mmHg (35.0-45.0); PO2 FiO2 Ratio Arterial Blood 0.91 %; Reduced Hemoglobin 8.8 %THb (0-5.0); Total Hemoglobin 11.4 g/dL (12.0-18.0); pH ABG 7.482 (7.350-7.450)
[2021-11-24 05:23] LABS: Band Neutrophils Percent 11 % (0-6); Lymphocytes Absolute Manual 0.67 K/mm3 (1.1-4.5); Monocytes Percent Manual 3 % (3-9); Neutrophils Absolute Manual 12.32 K/mm3 (1.7-7.2); Neutrophils Percent Manual 81 % (46-73); Total Cells Counted 100
[2021-11-24 05:23] LABS: Device VENTILATOR; Modified Allen's Test Unable to perform; Site Drawn RIGHT RADIAL
[2021-11-24 05:24] LABS: Platelet Estimate Adequate (Adequate)
[2021-11-24 05:24] LABS: Arterial Blood Gas PEEP 8 cmH2O; Arterial Blood Gas Tidal Volume 400 ml; Arterial Blood Gas Vent Mode CMV; Arterial Blood Gas Ventilator rate 20 /MIN
[2021-11-24 05:25] LABS: Anisocytosis 1+ (NORMAL)
[2021-11-24] MEDS: INSULIN HUMAN REGULAR (*BKC) 100 UNITS in SODIUM CHLORIDE 0.9% IV 99 ML 7.8 UNITS IV CONT (06:28)
[2021-11-24 06:35] LABS: Glucose Point of Care 449 mg/dl (65-105)
[2021-11-24 07:44] LABS: Glucose Point of Care 499 mg/dl (65-105)
[2021-11-24] MEDS: SODIUM CHLORIDE 0.9% IV 1,000 ML 75 ML IV CONT (07:49)
[2021-11-24 07:51] LABS: Reflex Lactic Acid Yes or No Add Lactic
--- NOTE | 2021-11-24 08:54 | PM.PNCARD ---
Progress Note: A&P Assessment and Plan (1) Abnormal EKG: Code(s): R94.31 - Abnormal electrocardiogram [ECG] [EKG] <TRACY Kaur - Last Filed: 11/24/21 16:07> Status: Acute <Nely Willie HumphreyTRACY rodríguez - Last Filed: 11/24/21 16:07> Assessment and Plan: Patient's EKG at presentation showed a possible lateral [place] versus pericarditis. EKG consistent with pericarditis - ST segments are concave up, she has [place] depression as well as no segmental wall motion abnormalities by echo. Subsequent ECG's show diffuse ST elevation Repeat troponins have been negative. Echo showed normal systolic function with an ejection fraction of 60-65%. No segmental wall motion abnormalities. She has some right ventricular dysfunction. Mild pulmonary hypertension, PASP 46mmHg. Trivial pericardial effusion. No indication for any invasive ischemic work up at this time No specific tx of pericardial effusion recommended at this time. <TRACY Kaur - Last Filed: 11/24/21 16:07> (2) Elevated troponin: Code(s): R77.8 - Other specified abnormalities of plasma proteins <TRACY Kaur - Last Filed: 11/24/21 16:07> Status: Acute <TRACY Kaur - Last Filed: 11/24/21 16:07> Assessment and Plan: First troponin result reported as 13.5 ng/L vs ng/mL. Normal range when reported ng/L is 0.00 - 60.4, this first troponin was not elevated. Subsequent samples have been reported correctly and have been negative. <TRACY Kaur - Last Filed: 11/24/21 16:07> (3) Pericardial effusion: Code(s): I31.3 - Pericardial effusion (noninflammatory) <TRACY Kaur - Last Filed: 11/24/21 16:07> Status: Acute <TRACY Kaur - Last Filed: 11/24/21 16:07> Assessment and Plan: By echo she had a trivial amount of pericardial fluid around the ventricles although there was a mild amount around the right atrium. By CT there was a large effusion. No evidence of tamponade by echo. Repeat limited echo with resolution of trivial pericardial effusion <TRACY Kaur - Last Filed: 11/24/21 16:07> (4) Septic shock: Code(s): A41.9 - Sepsis, unspecified organism; R65.21 - Severe sepsis with septic shock <TRACY Kaur - Last Filed: 11/24/21 16:07> Status: Acute <TRACY Kaur - Last Filed: 11/24/21 16:07> Assessment and Plan: Very sick lady with multiorgan failure, pneumonia and probable empyema, ARF, etc. Improving somewhat. Treatment per Dr. Martel. Thoracentesis of loculated pleural effusions Gram neg bacilli and gram positive cocci on pleural fluid culture Blood cultures NGTD Remains on vasopressor support, mechanically ventilated Awaiting transfer to higher level of care for CTS consult Management per critical care service <TRACY Kaur - Last Filed: 11/24/21 16:07> (5) Right ventricular enlargement: Code(s): I51.7 - Cardiomegaly <TRACY Kaur - Last Filed: 11/24/21 16:07> Status: Acute <TRACY Kaur - Last Filed: 11/24/21 16:07> Assessment and Plan: Patient has right ventricular enlargement and hypokinesis with mild to moderate pulmonary hypertension and a history of PE in the past. FiO2 80%; high O2 requirements. Venous dopplers negative. PE is on the differential Agree with anticoagulation, though we need to watch for any evidence of hemorrhagic pericardial effusion.. Chest CTA when renal function improves <TRACY Kaur - Last Filed: 11/24/21 16:07> (6) Atrial fibrillation: Code(s): I48.91 - Unspecified atrial fibrillation <TRACY Kaur - Last Filed: 11/24/21 16:07> Status: Acute <TRACY Kaur - Last Filed: 11/24/21 16:07> Additional Plan Attending Addendum: I have personally seen and examined this patient at bedside. I agree with the ab
[2021-11-24 09:06] LABS: Glucose Point of Care 412 mg/dl (65-105)
[2021-11-24] MEDS: ENOXAPARIN 40 MG/0.4 ML SYRINGE SUB-Q (09:16)
[2021-11-24] MEDS: MINERAL OIL/WHITE PETROLATUM OINTMENT 1 APPLIC EACH EYE (09:17)
[2021-11-24] MEDS: FAMOTIDINE 20 MG/2 ML VIAL IV PUSH (09:17)
[2021-11-24] MEDS: INSULIN GLARGINE (*BKC) 100 UNITS/ML 35 UNITS SUB-Q (09:23)
[2021-11-24] MEDS: INSULIN HUMAN REGULAR (*BKC) 100 UNITS/ML 10 UNITS IV PUSH (09:25)
[2021-11-24 09:26] LABS: Lactic Acid 3.3 mmol/L (0.7-2.1)
--- NOTE | 2021-11-24 09:41 | PM.PNGS ---
Progress Note: A&P Assessment and Plan (1) Empyema: Code(s): J86.9 - Pyothorax without fistula Status: Acute Assessment and Plan: d/w IR and plan to place bilateral [address] guidance, will upsize if necessary, cont IV abx Subjective Subjective Date/Time Seen: 11/24/21 09:41 No acute issues, editor in chief newspaper spoke c thoracic surgery and recommend to place bilateral chest tubes Review of Systems Review of Systems: ROS unobtainable: Yes unobtainable due to endotracheal tube Exam Const: Other: intubated, sedated Resp: Auscultation: diminished lung sounds Cardio: Rate: regular rate Rhythm: regular rhythm GI: Inspection: normal to inspection and non-distended GI Palp: Yes Soft to palpation, No Tenderness to palpation present (GI), No Guarding due to palpation present (GI) and No Rigid due to palpation Objective Data Vital Signs Vital Signs: Vital Signs - 24 hr 11/23/21 10:00 11/23/21 10:54 11/23/21 12:00 Temperature 36.9 C 36.9 C Pulse Rate 109 H 102 H 109 H Respiratory Rate 23 H 21 H Blood Pressure 115/78 137/89 Pulse Oximetry 92 92 93 11/23/21 13:38 11/23/21 13:43 11/23/21 14:00 Temperature 37.0 C Pulse Rate 109 H 106 H 104 H Respiratory Rate 21 H 27 H Blood Pressure 126/75 Pulse Oximetry 93 93 11/23/21 16:00 11/23/21 17:01 11/23/21 18:00 Temperature 37.1 C 37.1 C Pulse Rate 88 91 86 Respiratory Rate 21 H 20 Blood Pressure 122/74 84/60 L Pulse Oximetry 97 98 98 11/23/21 19:00 11/23/21 19:30 11/23/21 19:40 Temperature Pulse Rate 98 100 104 H Respiratory Rate 22 H 28 H Blood Pressure Pulse Oximetry 100 11/23/21 19:45 11/23/21 20:00 11/23/21 22:00 Temperature 37.1 C Pulse Rate 103 H 109 H 111 H Respiratory Rate 28 H 28 H 30 H Blood Pressure 150/92 H 143/83 H Pulse Oximetry 92 93 11/23/21 23:06 11/24/21 00:00 11/24/21 00:01 Temperature 37.1 C Pulse Rate 99 108 H 107 H Respiratory Rate 26 H Blood Pressure 133/93 H Pulse Oximetry 94 95 11/24/21 02:00 11/24/21 02:01 11/24/21 02:09 Temperature Pulse Rate 105 H 105 H 99 Respiratory Rate 28 H 31 H Blood Pressure 144/88 H 109/79 Pulse Oximetry 93 96 11/24/21 03:09 11/24/21 04:00 11/24/21 04:36 Temperature 37.7 C H Pulse Rate 109 H 110 H 168 H Respiratory Rate 32 H Blood Pressure 147/92 H 159/90 H 147/106 H Pulse Oximetry 94 11/24/21 04:37 11/24/21 04:49 11/24/21 04:55 Temperature Pulse Rate 148 H 156 H 161 H Respiratory Rate 35 H Blood Pressure Pulse Oximetry 94 11/24/21 06:00 11/24/21 06:26 11/24/21 08:19 Temperature Pulse Rate 152 H 151 H 108 H Respiratory Rate 34 H 22 H Blood Pressure 153/82 H Pulse Oximetry 95 11/24/21 08:21 11/24/21 08:48 Temperature Pulse Rate 104 H 105 H Respiratory Rate 22 H Blood Pressure Pulse Oximetry 96 Intake/Output Intake/Output: Intake & Output 11/21/21 11/22/21 11/23/21 11/24/21 23:59 23:59 23:59 23:59 Intake Total 4800 3320 2737 2868 Output Total 1125 2525 1950 1550 Balance 3675 759 161 2015 Meds/Results Medications: Active Medications Generic Name Dose Route Start Last Admin Trade Name Freq PRN Reason Stop Dose Admin Dextrose 12.5 gm 11/21/21 04:03 Dextrose 50% 25 Gm/50 Ml Syringe IV PUSH PRN PRN Hypoglycemia Protocol Enoxaparin Sodium 40 mg 11/22/21 09:00 11/24/21 09:16 Enoxaparin 40 Mg/0.4 Ml Syringe SUB-Q 40 mg DAILY FARNAZ Administration Famotidine 20 mg 11/21/21 09:00 11/24/21 09:17 Famotidine 20 Mg/2 Ml Vial IV PUSH 20 mg Q12HR FARNAZ Administration Glucagon 1 mg 11/21/21 04:03 Glucagon For Inj 1 Mg Vial IM PRN PRN Hypoglycemia Protocol Glucose 15 gm 11/21/21 04:03 Glucose Oral Gel 15 Gm Of Glucse In 37.5 Gm Tube PO PRN PRN Hypoglycemia Protocol Hydrocortisone Sodium Succinate 50 mg 11/23/21 12:00 11/24/21 00:31 Hydrocortisone Sodium Succinate 100 Mg/2 Ml
[2021-11-24] MEDS: AMIODARONE 360 MG/D5W 200 ML 360 MG/200 ML BAG 16.67 MG IV CONT (10:28)
[2021-11-24 10:29] LABS: Glucose Point of Care 335 mg/dl (65-105)
--- NOTE | 2021-11-24 11:05 | WPDINTPN ---
Progress Note: A&P Assessment and Plan (1) Acute respiratory failure with hypoxia: Code(s): J96.01 - Acute respiratory failure with hypoxia Status: Acute Assessment and Plan: Acute respiratory failure likely related to compressive atelectasis secondary to bilateral empyema -intubated on 11/21/2021 -currently on CMV mode of ventilation, peep of 8 and 65 % FiO2 -ABG and chest x-ray reviewed -continue antibiotics as above -continue bronchodilators -patient is sedated with propofol infusion, maintain RASS of 0 to -2 (2) Empyema: Code(s): J86.9 - Pyothorax without fistula Status: Acute Assessment and Plan: - 11/21/2021 CT chest showed IMPRESSION: 1. Moderate-sized loculated pleural effusions with passive atelectasis of the lungs. 2. Large pericardial effusion. 3. No acute findings of the abdomen or pelvis. -11/22/2021: Left-sided thoracentesis with 1200 mL of purulent drainage. G stain positive for Gram-negative bacilli and Gram-positive cocci. Cultures are pending - repeat CT Chest again IMPRESSION: 1. Increasing airspace opacities of the lungs, likely pneumonia. 2. Moderate-sized loculated pleural effusions. 3. Large pericardial effusion. 4. No acute findings of the abdomen or pelvis. Small tiny pneumothorax was also seen I have spoken to thoracic surgery and ICU physician at [facility] in [place] and they have accepted the patient. Initially we were planning to place chest tubes on both sides today. I had discussed case with General surgery and Radiology Dr. Muro. Radiology was planning to place 14 [place]ese chest tubes on both sides to open the drainage both pleural space. Once patient was accepted by [facility] the physician requested not to to place chest tube and I was told that they will place bigger chest tubes once patient reaches their hospital. Patient is going to be transferred soon as they have assigned her a bed and nurse has given report to the accepting nurse (3) Elevated troponin: Code(s): R77.8 - Other specified abnormalities of plasma proteins Status: Acute Assessment and Plan: Patient with elevated troponin some EKG changes 11/22/2021 -discussed with cardiology, likely pericarditis, -repeat troponins were negative -echocardiogram on 11/21/2021 showed normal LV systolic function with EF of 60-65%. Moderate right ventricular enlargement with moderate hypokinesis, mild pulmonary hypertension with RVSP of 46 mmHg, trivial pericardial effusion (4) Septic shock: Code(s): A41.9 - Sepsis, unspecified organism; R65.21 - Severe sepsis with septic shock Status: Acute Assessment and Plan: Septic shock likely related to empyema, pneumonia, possible bacteremia -11/22/2021: Left-sided thoracentesis with 1200 mL of purulent drainage -patient is off vasopressors -lactic acid level is still elevated slightly. Will give IV albumin 5% 500 cc -CT chest without contrast showed loculated pleural effusion bilaterally with compressive atelectasis, no abnormalities within the abdomen or pelvis. Fat stranding within the mediastinal soft tissues on the heart is a single focus of gas within the epicardial fat -surgery has been consulted - Continue Zosyn and vancomycin (11/21) -11/21: blood and urine cultures are negative - 11/21: Sputum cultures no growth - 11/22: Pleural fluid Gram stain showing moderate Gram-negative bacilli line Gram-positive cocci (5) Acute renal failure: Qualifiers: Acute renal failure type: unspecified Qualified Code(s): N17.9 - Acute kidney failure, unspecified Code(s): N17.9 - Acute kidney failure, unspecified Status: Acute Assessment and Plan: RESOLVED Patient with acute kidney injury likely related to hypotension, septic shock, ATN, infection -patient has had adequate IV fluids, will give additional Hespan -continue maintenance IV fluids -urine output and renal function are imp
[2021-11-24] MEDS: SODIUM PHOSPHATE 20 MM in DEXTROSE 5% IN WATER 250 ML 50 MM IVPB (11:18)
[2021-11-24] MEDS: PROPOFOL IV EMULSION 100 ML 3.82 MG IV CONT (11:18)
--- NOTE | 2021-11-24 11:32 | PCNFU ---
Nutrition Follow-Up Complete: Inadequate Oral Intake as related to mechanical ventilation as evidenced by tube feedings. Goal; Meet estimated nutritional needs. Patient is progressing towards goal. We will continue current goal. Pt current nutrition is Glucerna 1.2 at 60 ml/hr over 22 hours. Last recorded weight is 127.4 kg, stable Bowel Motility:No BM reported. Labs Reviewed: PO4 1.7,Mg 2.7,K 5.6,Alb 2.4,Hct 32.7,Hgb 9.9, Glu 431 Meds Noted:Versed, Fentanyl,Propofol 5 [id number] kcals, Lovenox, Lantus, Zosyn, Vancomycin. Skin: WNL Additional Notes: Patient remains on mechanical vent and tube feedings of Glucerna 1.2 at 60 ml/hr over 22 hours. Current tube feeding is providing 1584 kcals/79 gms protein/1063 ml water. Additional 101 kcals from propofol. Total caloric intake,1685 kcals. Meeting 84% of caloric needs, 84% of protein needs. Free water flush 30 ml q 4 hours. Will monitor in ICU rounds and reassessing every Tuesday and Tuesday.
[2021-11-24] MEDS: ALBUMIN HUMAN 5% 25 GM/500 ML BTL IV CONT (11:48)
[2021-11-24 11:49] LABS: Glucose Point of Care 281 mg/dl (65-105)
[2021-11-24 12:52] LABS: Glucose Point of Care 243 mg/dl (65-105)
--- NOTE | 2021-11-24 13:31 | PM.TDS ---
Transfer Discharge Sum: Prov Provider Date of admission: 11/21/21 01:17 Primary care physician: Tara Andrea MD Admitting clinician: Aydee Hanson DO Consults: 11/21/21 Consult to Physician Routine Comment: Consulting Provider: Philomena Martel house calls nurse practitioner/MD group to consult: Shading Painter Reason for consultation: Shock, respiratory failure Has provider been notified: Yes 11/21/21 10:49 Consult to Physician Routine Comment: Consulting Provider: Sanjuana Palomares house calls nurse practitioner/MD group to consult: Surgery Reason for consultation: Left loculated effusion Has provider been notified: Yes 11/22/21 09:55 Consult to Physician Routine Comment: called exchange with consult information Consulting Provider: Azul Martinez house calls nurse practitioner/MD group to consult: [facility] Cardiology Reason for consultation: Elevated troponin Has provider been notified: Yes Discharging clinician: Randolph Rosen Anticipated date of transfer: 11/24/21 DS: Admitting Diagnosis Discharge Date 11/24/21 Admitting Diagnosis Shortness of breath DS: Discharge Diagnosis Discharge Diagnosis (1) Septic shock: Code(s): A41.9 - Sepsis, unspecified organism; R65.21 - Severe sepsis with septic shock Status: Acute Assessment and Plan: Patient presents with shortness of breath and found to have sepsis symptoms with HoTN and hypothermia. Septic shock likely related to empyema, pneumonia, and possibly bacteremia. BCx 11/20 NGTD. Patient received adequate IV fluid resuscitation. She was on pressors but have been weaned off all pressors on 11/22. CT chest without contrast showed loculated pleural effusion bilaterally with compressive atelectasis but no abnormalities within the abdomen or pelvis. She was started on Zosyn and vancomycin (11/21). Repeat Cx pending. She underwent thoracentesis and Gram stain was positive from pleural fluid. Started on stress dose steroids. General surgery was consulted for chest tube. BP remaining stable off pressors. Given the higher acuity, pateint was transferred to a tertiary care center that had cardiothoracic surgery. (2) Acute respiratory failure with hypoxia: Code(s): J96.01 - Acute respiratory failure with hypoxia Status: Acute Assessment and Plan: Acute respiratory failure likely related to septic shock, PNA with empyema and compressive atelectasis secondary to bilateral loculated effusions requiring intubation on 11/21. She remained intubated and sedated at time of transfer. Appreciate wrecking mechanic input. (3) Empyema: Code(s): J86.9 - Pyothorax without fistula Status: Acute Assessment and Plan: CT chest 11/21 showing moderate-sized loculated pleural effusions with passive atelectasis of the lungs. Ultrasound-guided thoracentesis 11/22 yielding 1200 mL of opaque, kincaid fluid. Gram stain showing gram negative bacilli and gram positive cocci. Source unclear. Anaerobic from bad dentition? Needs chest tube (probably bilaterally) and possibly VATS. General surgery consulted for chest tube. Discussed with wrecking mechanic. Transfer arranged (4) Abnormal EKG: Code(s): R94.31 - Abnormal electrocardiogram [ECG] [EKG] Status: Acute Assessment and Plan: Patient with normal troponin series but EKG changes with ST elevation in the high lateral leads. Echo 11/21 showed normal LV systolic function with EF of 60-65%, moderate right ventricular enlargement with moderate hypokinesis, mild pulmonary hypertension with RVSP of 46 mmHg, and trivial pericardial effusion. Probably repolarization or pericarditis given the empyema. Cardiology was following and appreciate their input. (5) Pericardial effusion: Code(s): I31.3 - Pericardial effusion (noninflammatory) Status: Acute Assessment and Plan: CT scan showing large pericardial effusion but on review of the images, it appears this fluid collection may be outside the pericardium. Echo here
[2021-11-24] MEDS: INSULIN HUMAN REGULAR (*BKC) 100 UNITS in SODIUM CHLORIDE 0.9% IV 99 ML 11.6 UNITS IV CONT (13:41)
[2021-11-24 13:46] LABS: Glucose Point of Care 205 mg/dl (65-105)
[2021-11-25 21:18] LABS: Glucose Pleural Fluid 150 mg/dL
[2021-11-27 21:32] LABS: Total Protein Pleural Fluid <3.0 g/dL
[2021-11-28 16:16] LABS: Amylase, Pleural Fluid 25 U/L
== END 2021-11-24 14:20 | disposition short-term general hospital (02) | DRG 871 ==
LOC: ANHICU 11-23 10:48 → ANHIMU 11-25 09:48
PROVIDERS: Internal Medicine; Internal Medicine Cardiovascular Disease; Admitting Provider Internal Medicine; PCP Family Medicine; Visit Provider Internal Medicine
DX: A41.9 Sepsis, unspecified organism (principal); R65.21 Severe sepsis with septic shock; J96.01 Acute respiratory failure with hypoxia; J86.9 Pyothorax without fistula; J18.9 Pneumonia, unspecified organism; N17.0 Acute kidney failure with tubular necrosis; J98.11 Atelectasis; I31.3 Pericardial effusion (noninflammatory); Z68.41 Body mass index [BMI] 40.0-44.9, adult; J90 Pleural effusion, not elsewhere classified; E78.5 Hyperlipidemia, unspecified; Z20.822 Contact with and (suspected) exposure to COVID-19; I10 Essential (primary) hypertension; Z79.899 Other long term (current) drug therapy; F17.210 Nicotine dependence, cigarettes, uncomplicated; E11.65 Type 2 diabetes mellitus with hyperglycemia; E87.6 Hypokalemia; Z91.14 Patient's other noncompliance with medication regimen; I27.20 Pulmonary hypertension, unspecified; Z86.711 Personal history of pulmonary embolism; E66.01 Morbid (severe) obesity due to excess calories; B96.89 Other specified bacterial agents as the cause of diseases classified elsewhere; E87.8 Other disorders of electrolyte and fluid balance, not elsewhere classified; R94.31 Abnormal electrocardiogram [ECG] [EKG]
CPT/HCPCS: 31500; 32555; 36415; 36569; 36600; 70450; 71045; 71250; 74176; 80048; 80053; 80202; 82040; 82042; 82150; 82375; 82805; 82945; 82948; 83036; 83050; 83605; 83615; 83735; 83986; 84100; 84132; 84155; 84157; 84311; 84478; 84484; 85025; 85027; 85610; 85730; 86140; 87015; 87040; 87070; 87075; 87076; 87086; 87102; 87116; 87205; 87206; 88104; 88108; 88184; 88305; 89051; 93005; 93306; 93308; 93970; 94002; 94003; 94640; C1751; C8924; C9803; J0131; J0282; J1650; J1720; J1815; J2250; J2543; J2704; J3010; J3370; J3480; J7030; J7060; P9045; Q9957; U0003; U0005

== ENCOUNTER 2022-01-25 16:43 | Inpatient (IN) | payer BC, SELFPAY ==
[2022-01-25 16:50] VITALS: PULSE 65; RESP 18; O2SAT 96; O2SAT 99; BMI 38.2
--- NOTE | 2022-01-25 16:50 | ADMGEN ---
This patient, Aleah Almeida, was admitted to 2nd Floor Room 204-2 as a swing bed for PT/OT for weakness related to septic shock. Patient/family oriented to hospital policies and general routines including ID bracelet, bed and alarms, visiting hours, pain management, procedures, bathroom and other care routines, personal items, smoking policy, room service/diet, and visiting hours. Information on how to activate the Rapid Response Team has been discussed. Patient/Family are encouraged to report perceived risks to care and to ask questions if they do not understand what they are told or what they should do.
[2022-01-25 21:11] LABS: Glucose Point of Care 207 mg/dl (65-105)
[2022-01-25 23:20] LABS: INR 2.2; Prothrombin Time 22.6 Seconds (9.50-12.10)
[2022-01-26] VITALS (7 sets, daily range): BP systolic 104–148; BP diastolic 52–74; PULSE 61–81; RESP 18–19; TEMP 36–36.6; O2SAT 96–100
[2022-01-26] MEDS: ACETAMINOPHEN 325 MG TABLET 650 MG PO ×3 (00:47→21:29)
[2022-01-26] MEDS: PHENYTOIN SODIUM 100 MG EXTENDED RELEASE CAP 200 MG PO ×4 (00:49→21:28)
[2022-01-26] MEDS: levETIRAcetam 500 MG TABLET 1000 MG PO ×3 (00:49→21:28)
[2022-01-26] MEDS: WARFARIN (*PBKC) 1 MG TABLET 3 MG PO ×2 (01:03→17:27)
[2022-01-26 05:36] LABS: INR 2.2; Prothrombin Time 22.7 Seconds (9.50-12.10)
[2022-01-26 07:29] LABS: Glucose Point of Care 131 mg/dl (65-105)
--- NOTE | 2022-01-26 08:15 | PM.IMHP ---
H&P: HPI History of Present Illness Date/Time: 01/26/22 08:15 this is a 61-year-old female that is being admitted to our swing bed from [facility]. Patient was admitted there with shock, syncope and hypotension. Patient has a past medical history of diabetes, paroxysmal atrial tachycardia, seizure disorder, hyperlipidemia, hypertension, obesity, pulmonary embolism. Patient had a recent admission with respiratory failure input by edema, and pericardial effusion and tamponade requiring her to have a pericardiocentesis she has been in the hospital for approximately 10 weeks with near syncope of 2 episodes patient was started on IV antibiotics and was admitted to the ICU there. At the hospital patient required pressors, steroids and resuscitation fluids. Since patient's initial admission patient has continued to improve improve infections have resolved upon discharge patient's WBC was 4.5 hemoglobin was 9.0 sodium was 133 potassium was 4.6 patient does not have any fever. The Tuesday prior to discharge patient had a fall in the bathroom she was kept an extra 3 days to monitor for lightheadedness and dizziness CT scan was normal. Patient just nervous about moving since then dizziness has resolved she will come here for work with therapy patient has an ejection fraction of 12% cardiology said that we will just continue to monitor. Patient's CODE STATUS is a full code . Chief Complaint: weakness, deconditioned, rehab Review of Systems Review of Systems: Weakness, deconditioning , PMFSH Past Medical History Medical History (Updated 01/26/22 @ 10:20 by Sabine Bauer NP) Anxiety Dyslipidemia Empyema History of pulmonary embolism Hypertension Type 2 diabetes mellitus without complication, without long-term current use of insulin Surgical History Surgical History History of appendectomy History of repair of left rotator cuff Status post cholecystectomy Family History Family History Other Diabetes mellitus Family history of coronary artery disease Hypertension Social History Social History Social History: The patient lives at home with her 2 adult sons. 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 Smoking packs per day: 1.5 Smoking cigarettes per day: 30.0 Years smoked: 25 Smoking pack-years: 37.50 Smoking status: Former smoker Tobacco type: cigarettes Second hand tobacco smoke exposure: No Alcohol intake: never Substance use: never Spiritual care concerns: No Meds Home Medications and Allergies Home Medications Medication Instructions Recorded Confirmed Type acetaminophen [Tylenol] 650 mg PO Q4H PRN 01/25/22 01/25/22 History aspirin [Aspirin Low Dose] 81 mg PO DAILY 01/25/22 01/25/22 History bisacodyl 10 mg RECTAL DAILY PRN 01/25/22 01/25/22 History levetiracetam 1,000 mg PO BID 01/25/22 01/25/22 History magnesium hydroxide 30 ml PO DAILY PRN 01/25/22 01/25/22 History metformin 1,000 mg PO BIDWM 01/25/22 01/25/22 History midodrine 10 mg PO TID 01/25/22 01/25/22 History pantoprazole 40 mg PO QAM 01/25/22 01/25/22 History phenytoin sodium extended 200 mg PO TID 01/25/22 01/25/22 History [Dilantin Extended] sennosides-docusate sodium 1 tab-cap PO HS PRN 01/25/22 01/25/22 History [Senokot-S] warfarin 3 mg PO DAILY 01/25/22 01/25/22 History Allergies Allergy/AdvReac Type Severity Reaction Status Date / Time bupropion Allergy Mild Palpitation Verified 11/20/21 20:12 s iodine Allergy Unknown Anaphylaxis Verified 11/20/21 20:12 Vital Signs Vital Signs - 24 hr 01/25/22 16:50 01/26/22 00:00 01/26/22 07:27 Temperature 96.8 F L 97.3 F L Pulse Rate 65 61 64 Respiratory Rate 18 18 18 Blood Pressure 115/52 L 122/74 Pulse Oximetry 99 100 97 Exam Narrative: GENERAL:Well-appearing, Pale well-diane
[2022-01-26] MEDS: PANTOPRAZOLE 40 MG TABLET PO (09:07)
[2022-01-26] MEDS: metFORMIN HCL 500 MG TABLET 1000 MG PO ×2 (09:07→17:27)
[2022-01-26] MEDS: ASPIRIN 81 MG ENTERIC TABLET PO (09:07)
[2022-01-26 11:38] LABS: Glucose Point of Care 133 mg/dl (65-105)
[2022-01-26 17:03] LABS: Glucose Point of Care 97 mg/dl (65-105)
[2022-01-26 21:33] LABS: Glucose Point of Care 152 mg/dl (65-105)
--- NOTE | 2022-01-26 22:59 | PC.NURSE ---
Pt was transferred from bed to commode via walker, gait belt, and 1 assist. Pt had a large bm consisting of brown, formed stool. Pt was also given a longer nasal canula tube in order to reach more of her room. Pt performed hand hygiene then returned to bed. Pt wanted to lift her legs independently into to bed which she was successful with. Call light placed within reach.
[2022-01-27] MEDS: ACETAMINOPHEN 325 MG TABLET 650 MG PO ×3 (01:49→20:27)
[2022-01-27] MEDS: PHENYTOIN SODIUM 100 MG EXTENDED RELEASE CAP 200 MG PO ×3 (05:00→22:51)
[2022-01-27 05:21] LABS: Prothrombin Time 20.9 Seconds (9.50-12.10)
[2022-01-27 05:40] VITALS: O2SAT 100
[2022-01-27 07:42] LABS: Glucose Point of Care 108 mg/dl (65-105)
[2022-01-27 07:44] VITALS: BP 113/72; PULSE 73; RESP 20; TEMP 36.4; O2SAT 98
[2022-01-27] MEDS: levETIRAcetam 500 MG TABLET 1000 MG PO ×2 (08:15→20:26)
[2022-01-27] MEDS: metFORMIN HCL 500 MG TABLET 1000 MG PO ×2 (08:15→16:56)
[2022-01-27] MEDS: ASPIRIN 81 MG ENTERIC TABLET PO (08:17)
[2022-01-27] MEDS: PANTOPRAZOLE 40 MG TABLET PO (08:18)
--- NOTE | 2022-01-27 10:27 | WPDPN ---
Progress Note: A&P Assessment and Plan (1) Atrial fibrillation: Qualifiers: Atrial fibrillation type: paroxysmal Qualified Code(s): I48.0 - Paroxysmal atrial fibrillation Code(s): I48.91 - Unspecified atrial fibrillation Status: Acute Assessment and Plan: continue coumadin monitor INR continue medication from cardiology (2) Empyema: Code(s): J86.9 - Pyothorax without fistula Status: Acute Assessment and Plan: Post Antibiotics Breathing treatment and oxygen No fever (3) Seizure disorder: Code(s): G40.909 - Epilepsy, unspecified, not intractable, without status epilepticus Status: Acute Assessment and Plan: continue medication Seizure precaution (4) Type 2 diabetes mellitus with hyperglycemia: Qualifiers: Diabetes mellitus group home insulin use: without terminal operations supervisor use Qualified Code(s): E11.65 - Type 2 diabetes mellitus with hyperglycemia Code(s): E11.65 - Type 2 diabetes mellitus with hyperglycemia Status: Acute Assessment and Plan: Monitor blood sugars ACHS adjust accordingly sliding scale (5) Electrolyte abnormality: Code(s): E87.8 - Other disorders of electrolyte and fluid balance, not elsewhere classified Status: Acute Assessment and Plan: will check labs weekly continue to monitor. (6) Pericarditis: Qualifiers: Pericarditis type: infectious Infectious pericarditis etiology: unspecified Code(s): I31.9 - Disease of pericardium, unspecified Status: Acute Assessment and Plan: due to Tamponade during last admission Echo at [facility] shows EF of 12% w small pericardial effusion without any tamponade Monitor for now Subjective Date/time seen: 01/27/22 10:27 patient has no complaints at this time she notes that her physical therapy is going well her pain is controlled and she slept well and tolerated all her meals. The patient denies SOB, CP, palpitation, extremity numbness, lightheadedness, dizziness, constipation, diarrhea, chills, or fever. Review of Systems Review of Systems: A 14 organ system Review of Systems was performed and pertinent positives included in the HPI, otherwise remaining ROS is negative. Exam Narrative: GENERAL:Well-appearing, Pale well-nourished, and in no acute distress. HEAD:Normocephalic, atraumatic. EYES: PERRLA and EOMI. ENT: Nares clear, no rhinorrhea . Mucous membranes moist. CHEST: Clear to diminished auscultation. required oxygen at 2l nc at all times No respiratory distress. HEART: Irregular Regular rate and rhythm decreased peripheral pulses. ABDOMEN: Soft, nontender, distended, normal active bowel sounds. EXTREMITIES: Normal range of motion. 2+ pitting bilateral leg edema. SKIN: Warm, dry, no rash. NEURO: No focal deficits. Alert and oriented x3. Objective Data Vital Signs Vital Signs: Vital Signs - 24 hr 01/26/22 16:30 01/26/22 23:02 01/27/22 07:44 Temperature 97.6 F 97.9 F 97.6 F Pulse Rate 81 78 73 Respiratory Rate 18 20 Blood Pressure 148/71 H 104/52 L 113/72 Pulse Oximetry 96 99 98 Intake/Output Intake/Output: Intake & Output 01/24/22 01/25/22 01/26/22 01/27/22 23:59 23:59 23:59 23:59 Intake Total 340 2560 1010 Output Total 700 1435 Balance 340 1860 -425 Meds/Results Medications: Active Medications Generic Name Dose Route Start Last Admin Trade Name Freq PRN Reason Stop Dose Admin Acetaminophen 650 mg 01/25/22 20:39 01/27/22 01:49 Acetaminophen 325 Mg Tablet PO 650 mg Q4H PRN Administration Fever Or Pain Aspirin 81 mg 01/26/22 09:00 01/27/22 08:17 Aspirin 81 Mg Enteric Tablet PO 81 mg DAILY FARNAZ Administration Dextrose 12.5 gm 01/25/22 20:41 Dextrose 50% 25 Gm/50 Ml Syringe IV PUSH PRN PRN Hypoglycemia Protocol Glucagon 1 mg 01/25/22 20:41 Glucagon For Inj 1 Mg Vial IM PRN PRN Hypoglycemia
[2022-01-27 11:47] LABS: Glucose Point of Care 93 mg/dl (65-105)
[2022-01-27 16:00] VITALS: BP 102/62; PULSE 80; RESP 18; TEMP 36.1; O2SAT 100
[2022-01-27 16:26] LABS: Glucose Point of Care 88 mg/dl (65-105)
[2022-01-27] MEDS: WARFARIN (*PBKC) 1 MG TABLET 3 MG PO (16:57)
[2022-01-27 19:10] VITALS: O2SAT 100
[2022-01-27 20:32] LABS: Glucose Point of Care 115 mg/dl (65-105)
[2022-01-27 20:57] VITALS: BP 139/78
--- NOTE | 2022-01-27 20:57 | PC.NURSE ---
pt up to bedside commode, has large soft/loose bm, pt requests her bp be taken because she feels dizzy and similar to when her bp had dropped previously, bp within normal limits, pt back in bed, call light in reach
--- NOTE | 2022-01-28 00:14 | PC.NURSE ---
Pt sleeping soundly c tv on in room, RR even and nonlabored, call [place] in pt reach.
--- NOTE | 2022-01-28 03:57 | PC.NURSE ---
Pt awake, assisted c use of gait belt and walker to BSC, pt tolerated well and went back to bed per self c SBA.
[2022-01-28 05:38] VITALS: O2SAT 99
[2022-01-28] MEDS: ACETAMINOPHEN 325 MG TABLET 650 MG PO (05:57)
[2022-01-28] MEDS: PHENYTOIN SODIUM 100 MG EXTENDED RELEASE CAP 200 MG PO ×3 (05:57→22:02)
[2022-01-28 07:23] LABS: Glucose Point of Care 73 mg/dl (65-105)
[2022-01-28 07:49] VITALS: BP 115/74; PULSE 68; RESP 20; TEMP 36.4; O2SAT 100
[2022-01-28] MEDS: metFORMIN HCL 500 MG TABLET 1000 MG PO ×2 (08:08→17:08)
[2022-01-28] MEDS: PANTOPRAZOLE 40 MG TABLET PO (08:08)
[2022-01-28] MEDS: ASPIRIN 81 MG ENTERIC TABLET PO (08:09)
[2022-01-28] MEDS: levETIRAcetam 500 MG TABLET 1000 MG PO ×2 (08:09→20:41)
--- NOTE | 2022-01-28 09:26 | PC.NURSE ---
Judicial Clerk aware that upon rising felt dizzy/light head just for a second or two. no changes in bp but heart rate up to 120. settles down to 90's once sitting. claims it feels like when you haves sinus infection and move your head to fast.
[2022-01-28 16:00] VITALS: BP 116/78; PULSE 84; RESP 20; TEMP 36.1; O2SAT 96
[2022-01-28] MEDS: WARFARIN (*PBKC) 1 MG TABLET 3 MG PO (17:09)
[2022-01-28 20:46] LABS: Glucose Point of Care 116 mg/dl (65-105)
[2022-01-29] VITALS: BP 116/70; PULSE 78; RESP 20; TEMP 36.3; O2SAT 99
[2022-01-29 00:11] LABS: Glucose Point of Care 85 mg/dl (65-105)
[2022-01-29 00:11] LABS: Glucose Point of Care 92 mg/dl (65-105)
[2022-01-29] MEDS: ACETAMINOPHEN 325 MG TABLET 650 MG PO ×3 (03:51→19:50)
[2022-01-29 05:45] VITALS: O2SAT 98
[2022-01-29] MEDS: PHENYTOIN SODIUM 100 MG EXTENDED RELEASE CAP 200 MG PO ×3 (06:04→21:06)
[2022-01-29 07:38] LABS: Glucose Point of Care 71 mg/dl (65-105)
[2022-01-29 08:00] VITALS: BP 110/70; PULSE 70; RESP 18; TEMP 36.2; O2SAT 99
[2022-01-29] MEDS: metFORMIN HCL 500 MG TABLET 1000 MG PO ×2 (08:56→16:51)
[2022-01-29] MEDS: levETIRAcetam 500 MG TABLET 1000 MG PO ×2 (08:57→21:06)
[2022-01-29] MEDS: PANTOPRAZOLE 40 MG TABLET PO (08:57)
[2022-01-29] MEDS: ASPIRIN 81 MG ENTERIC TABLET PO (08:57)
[2022-01-29 11:24] LABS: Glucose Point of Care 87 mg/dl (65-105)
[2022-01-29 15:27] VITALS: BP 148/91; PULSE 94; RESP 18; TEMP 36.2; O2SAT 95
[2022-01-29] MEDS: WARFARIN (*PBKC) 1 MG TABLET 3 MG PO (16:50)
[2022-01-29 16:52] LABS: Glucose Point of Care 84 mg/dl (65-105)
[2022-01-29 21:10] LABS: Glucose Point of Care 79 mg/dl (65-105)
[2022-01-29 23:03] VITALS: BP 109/70; PULSE 80; RESP 17; TEMP 36.8; O2SAT 97
--- NOTE | 2022-01-29 23:33 | PC.NURSE ---
Pt had 2nd bm of shift that consisted of brown, very loose stool in small quantities. Pt stated she thinks it may be associated with her metformin dosage and that she had a similar circumstance happen to her in the past which lead to her dosage/frequency being changed by her pcp. Pt was then encouraged to perform hand hygiene and she did so with minimal assistance. Call light was placed within reach of Aleah after she returned to bed.
[2022-01-30] MEDS: PHENYTOIN SODIUM 100 MG EXTENDED RELEASE CAP 200 MG PO ×3 (05:07→21:08)
[2022-01-30] MEDS: ACETAMINOPHEN 325 MG TABLET 650 MG PO (05:08)
[2022-01-30 05:23] LABS: INR 2.6; Prothrombin Time 26.8 Seconds (9.50-12.10)
[2022-01-30 06:11] VITALS: O2SAT 99
[2022-01-30 07:27] LABS: Glucose Point of Care 85 mg/dl (65-105)
[2022-01-30 07:39] VITALS: BP 120/72; PULSE 78; RESP 14; TEMP 36.1; O2SAT 97
[2022-01-30 07:45] VITALS: O2SAT 97
[2022-01-30] MEDS: ASPIRIN 81 MG ENTERIC TABLET PO (08:28)
[2022-01-30] MEDS: metFORMIN HCL 500 MG TABLET 1000 MG PO (08:28)
[2022-01-30] MEDS: PANTOPRAZOLE 40 MG TABLET PO (08:29)
[2022-01-30] MEDS: levETIRAcetam 500 MG TABLET 1000 MG PO ×2 (08:29→21:07)
[2022-01-30 11:36] LABS: Glucose Point of Care 113 mg/dl (65-105)
[2022-01-30 16:35] VITALS: BP 125/76; PULSE 96; RESP 18; TEMP 36.1; O2SAT 98
[2022-01-30 16:43] LABS: Glucose Point of Care 65 mg/dl (65-105)
[2022-01-30] MEDS: WARFARIN (*PBKC) 1 MG TABLET 3 MG PO (17:33)
[2022-01-30 18:32] LABS: Glucose Point of Care 102 mg/dl (65-105)
[2022-01-30 20:53] LABS: Glucose Point of Care 159 mg/dl (65-105)
[2022-01-30 23:05] VITALS: BP 105/69; PULSE 78; RESP 16; TEMP 36.8; O2SAT 98
[2022-01-31 05:52] VITALS: O2SAT 98
[2022-01-31] MEDS: PHENYTOIN SODIUM 100 MG EXTENDED RELEASE CAP 200 MG PO ×3 (06:29→21:31)
[2022-01-31 07:40] LABS: Glucose Point of Care 106 mg/dl (65-105)
[2022-01-31 08:00] VITALS: BP 109/72; PULSE 82; RESP 14; TEMP 36.2; O2SAT 100
[2022-01-31] MEDS: ASPIRIN 81 MG ENTERIC TABLET PO (09:01)
[2022-01-31] MEDS: PANTOPRAZOLE 40 MG TABLET PO (09:01)
[2022-01-31] MEDS: levETIRAcetam 500 MG TABLET 1000 MG PO ×2 (09:02→21:30)
[2022-01-31] MEDS: metFORMIN HCL 500 MG TABLET 1000 MG PO (09:02)
[2022-01-31 11:49] LABS: Glucose Point of Care 135 mg/dl (65-105)
[2022-01-31] MEDS: ACETAMINOPHEN 325 MG TABLET 650 MG PO (13:30)
[2022-01-31 16:35] VITALS: BP 105/63; PULSE 68; RESP 18; TEMP 36.2; O2SAT 98
[2022-01-31 17:12] LABS: Glucose Point of Care 84 mg/dl (65-105)
[2022-01-31 21:32] LABS: Glucose Point of Care 116 mg/dl (65-105)
[2022-01-31 23:03] VITALS: BP 122/76; PULSE 72; RESP 17; TEMP 36.4; O2SAT 98
[2022-02-01 05:32] VITALS: O2SAT 100
[2022-02-01] MEDS: PHENYTOIN SODIUM 100 MG EXTENDED RELEASE CAP 200 MG PO ×3 (06:03→21:12)
[2022-02-01 07:32] VITALS: BP 132/85; PULSE 77; RESP 18; TEMP 36.3; O2SAT 99
[2022-02-01] MEDS: levETIRAcetam 500 MG TABLET 1000 MG PO ×2 (08:04→21:12)
[2022-02-01] MEDS: ASPIRIN 81 MG ENTERIC TABLET PO (08:05)
[2022-02-01] MEDS: PANTOPRAZOLE 40 MG TABLET PO (08:05)
[2022-02-01] MEDS: metFORMIN HCL 500 MG TABLET 1000 MG PO (08:05)
[2022-02-01] MEDS: ACETAMINOPHEN 325 MG TABLET 650 MG PO ×2 (08:12→15:15)
--- NOTE | 2022-02-01 08:42 | PM.EVENT ---
Event Note Event Note Event Note: Patient metformin changed to 1000 mg daily instead of 2000 mg daily patient complains of uncontrolled diarrhea as a result of her increased metformin. Also restarted warfarin at 2.5 mg patient INR is therapeutic without use. Patient notes that she is on warfarin for the rest of her life for PE and DVT patient also has a history of A. fib. I explained to patient that she will be on warfarin probably for the rest of her life due to her A. fib. Continue INR every 72 hours
[2022-02-01 16:00] VITALS: BP 115/69; PULSE 74; RESP 16; TEMP 36.2; O2SAT 99
[2022-02-01 16:38] LABS: Glucose Point of Care 73 mg/dl (65-105)
[2022-02-01] MEDS: WARFARIN (*PBKC) 2.5 MG TABLET PO (17:34)
[2022-02-01 21:17] LABS: Glucose Point of Care 149 mg/dl (65-105)
[2022-02-02] VITALS: BP 137/71; PULSE 67; RESP 18; TEMP 36.2; O2SAT 100
[2022-02-02 05:35] VITALS: O2SAT 97
[2022-02-02] MEDS: PHENYTOIN SODIUM 100 MG EXTENDED RELEASE CAP 200 MG PO ×3 (06:25→22:02)
[2022-02-02] MEDS: ACETAMINOPHEN 325 MG TABLET 650 MG PO ×2 (06:26→14:57)
[2022-02-02] MEDS: ASPIRIN 81 MG ENTERIC TABLET PO (07:38)
[2022-02-02] MEDS: PANTOPRAZOLE 40 MG TABLET PO (07:38)
[2022-02-02] MEDS: levETIRAcetam 500 MG TABLET 1000 MG PO ×2 (07:39→20:44)
[2022-02-02 07:58] VITALS: BP 117/86; PULSE 87; RESP 18; TEMP 36.3; O2SAT 99
--- NOTE | 2022-02-02 14:04 | PC.NURSE ---
Patient O2 titrated down to 1L/NC, with SPO2 at 100%, will continue to monitor for SOB and hypoxia.
[2022-02-02 15:13] LABS: Glucose Point of Care 131 mg/dl (65-105)
[2022-02-02 15:13] LABS: Glucose Point of Care 88 mg/dl (65-105)
[2022-02-02 15:13] LABS: Glucose Point of Care 107 mg/dl (65-105)
[2022-02-02 15:13] LABS: Glucose Point of Care 117 mg/dl (65-105)
[2022-02-02 16:00] VITALS: BP 120/77; PULSE 83; RESP 16; TEMP 36.5; O2SAT 97
[2022-02-02 16:37] LABS: Glucose Point of Care 103 mg/dl (65-105)
[2022-02-02] MEDS: WARFARIN (*PBKC) 2.5 MG TABLET PO (17:33)
[2022-02-02] MEDS: metFORMIN HCL 500 MG TABLET 1000 MG PO (20:45)
[2022-02-02 20:48] LABS: Glucose Point of Care 186 mg/dl (65-105)
[2022-02-03] VITALS: BP 86/43; PULSE 74; RESP 18; TEMP 35.8; O2SAT 97
[2022-02-03 05:39] VITALS: O2SAT 97
[2022-02-03] MEDS: PHENYTOIN SODIUM 100 MG EXTENDED RELEASE CAP 200 MG PO ×3 (06:22→21:45)
[2022-02-03 07:53] LABS: Glucose Point of Care 100 mg/dl (65-105)
[2022-02-03 08:00] VITALS: BP 137/52; PULSE 89; RESP 14; TEMP 36.4; O2SAT 98
[2022-02-03] MEDS: ASPIRIN 81 MG ENTERIC TABLET PO (08:46)
[2022-02-03] MEDS: levETIRAcetam 500 MG TABLET 1000 MG PO ×2 (08:46→20:47)
[2022-02-03] MEDS: PANTOPRAZOLE 40 MG TABLET PO (08:47)
[2022-02-03 12:06] LABS: Glucose Point of Care 114 mg/dl (65-105)
[2022-02-03] MEDS: ACETAMINOPHEN 325 MG TABLET 650 MG PO ×2 (12:48→19:11)
[2022-02-03 16:00] VITALS: BP 120/70; PULSE 88; RESP 16; TEMP 36.6; O2SAT 99
[2022-02-03 16:40] LABS: Glucose Point of Care 119 mg/dl (65-105)
[2022-02-03] MEDS: WARFARIN (*PBKC) 2.5 MG TABLET PO (17:18)
[2022-02-03] MEDS: metFORMIN HCL 500 MG TABLET 1000 MG PO (20:47)
[2022-02-03 20:48] LABS: Glucose Point of Care 139 mg/dl (65-105)
[2022-02-04] VITALS: BP 116/70; PULSE 90; RESP 18; TEMP 36.3; O2SAT 96
[2022-02-04] MEDS: ACETAMINOPHEN 325 MG TABLET 650 MG PO ×2 (04:20→20:54)
[2022-02-04] MEDS: PHENYTOIN SODIUM 100 MG EXTENDED RELEASE CAP 200 MG PO ×3 (06:01→21:00)
[2022-02-04 08:00] VITALS: BP 125/73; PULSE 89; RESP 14; TEMP 36.6; O2SAT 99
[2022-02-04 08:04] LABS: Glucose Point of Care 103 mg/dl (65-105)
[2022-02-04] MEDS: PANTOPRAZOLE 40 MG TABLET PO (09:34)
[2022-02-04] MEDS: ASPIRIN 81 MG ENTERIC TABLET PO (09:34)
[2022-02-04] MEDS: levETIRAcetam 500 MG TABLET 1000 MG PO ×2 (09:34→20:54)
[2022-02-04 11:57] LABS: Glucose Point of Care 110 mg/dl (65-105)
[2022-02-04 15:17] VITALS: BP 104/72; PULSE 73; RESP 18; TEMP 36.3; O2SAT 97
[2022-02-04 16:19] LABS: Glucose Point of Care 100 mg/dl (65-105)
[2022-02-04] MEDS: WARFARIN (*PBKC) 2.5 MG TABLET PO (16:59)
[2022-02-04] MEDS: metFORMIN HCL 500 MG TABLET 1000 MG PO (20:54)
[2022-02-04 20:55] LABS: Glucose Point of Care 190 mg/dl (65-105)
[2022-02-04 23:51] VITALS: BP 101/58; PULSE 69; RESP 14; TEMP 36.4; O2SAT 96
[2022-02-05] MEDS: PHENYTOIN SODIUM 100 MG EXTENDED RELEASE CAP 200 MG PO ×3 (05:42→21:06)
[2022-02-05 07:58] LABS: Glucose Point of Care 110 mg/dl (65-105)
[2022-02-05 08:00] VITALS: BP 142/88; PULSE 97; RESP 20; TEMP 35.8; O2SAT 97
[2022-02-05] MEDS: PANTOPRAZOLE 40 MG TABLET PO (09:01)
[2022-02-05] MEDS: levETIRAcetam 500 MG TABLET 1000 MG PO ×2 (09:01→20:30)
[2022-02-05] MEDS: ASPIRIN 81 MG ENTERIC TABLET PO (09:01)
[2022-02-05 11:42] LABS: Glucose Point of Care 100 mg/dl (65-105)
[2022-02-05] MEDS: ACETAMINOPHEN 325 MG TABLET 650 MG PO ×2 (11:47→21:06)
[2022-02-05 12:31] LABS: INR 1.5; Prothrombin Time 15.5 Seconds (9.50-12.10)
[2022-02-05] MEDS: WARFARIN (*PBKC) 2.5 MG TABLET PO (15:52)
[2022-02-05 16:00] VITALS: BP 128/74; PULSE 80; RESP 18; TEMP 36.4; O2SAT 96
[2022-02-05 16:56] LABS: Glucose Point of Care 111 mg/dl (65-105)
[2022-02-05] MEDS: metFORMIN HCL 500 MG TABLET 1000 MG PO (20:29)
[2022-02-05 20:35] LABS: Glucose Point of Care 164 mg/dl (65-105)
[2022-02-05 23:17] VITALS: BP 106/66; PULSE 77; RESP 20; TEMP 36.4; O2SAT 95
[2022-02-06] MEDS: PHENYTOIN SODIUM 100 MG EXTENDED RELEASE CAP 200 MG PO ×3 (05:03→21:03)
[2022-02-06 05:15] LABS: Hematocrit 30.7 % (35.0-49.0); Hemoglobin 9.8 g/dL (12.0-15.0); Mean Corpuscular HGB Conc 31.9 g/dL (32.0-36.0); Mean Corpuscular Volume 93.9 fL (78.0-102.0); Mean Platelet Volume 9.7 fl (9.2-11.8); Platelet Count Result 208 K/mm3 (150-420); Red Blood Count 3.27 M/mm3 (4.20-5.40); Red Cell Distribution Width 12.9 % (11.6-14.4); White Blood Count 3.8 K/mm3 (4.8-10.8)
[2022-02-06 05:21] LABS: Anion Gap 10 mmol/L (8-16); Blood Urea Nitrogen 8 mg/dL (7-18); Calcium 8.8 mg/dL (8.5-10.1); Carbon Dioxide 31 mmol/L (21-32); Chloride 116 mmol/L (98-108); Estimated CRCL calculation 115 ml/min; Estimated Glomerular Filt Rate > 60; Glucose 90 mg/dL (70-99); Osmolality Calculated 322 mOsm/kg (285-295); Potassium 4.5 mmol/L (3.5-5.1); Sodium 157 mmol/L (136-145)
[2022-02-06 08:00] VITALS: BP 112/76; PULSE 96; RESP 16; TEMP 36.3; O2SAT 96
[2022-02-06 08:03] LABS: Glucose Point of Care 102 mg/dl (65-105)
[2022-02-06] MEDS: levETIRAcetam 500 MG TABLET 1000 MG PO ×2 (09:01→20:50)
[2022-02-06] MEDS: ASPIRIN 81 MG ENTERIC TABLET PO (09:01)
[2022-02-06] MEDS: PANTOPRAZOLE 40 MG TABLET PO (09:01)
[2022-02-06] MEDS: ACETAMINOPHEN 325 MG TABLET 650 MG PO ×2 (09:07→20:49)
[2022-02-06 11:54] LABS: Glucose Point of Care 100 mg/dl (65-105)
--- NOTE | 2022-02-06 14:02 | PM.IMPN ---
Progress Note: A&P Assessment and Plan (1) Atrial fibrillation: Qualifiers: Atrial fibrillation type: paroxysmal Qualified Code(s): I48.0 - Paroxysmal atrial fibrillation Code(s): I48.91 - Unspecified atrial fibrillation Status: Acute Assessment and Plan: continue coumadin monitor INR continue medication from cardiology (2) Empyema: Code(s): J86.9 - Pyothorax without fistula Status: Acute Assessment and Plan: Post Antibiotics Breathing treatment and oxygen No fever (3) Seizure disorder: Code(s): G40.909 - Epilepsy, unspecified, not intractable, without status epilepticus Status: Acute Assessment and Plan: continue medication Seizure precaution (4) Type 2 diabetes mellitus with hyperglycemia: Qualifiers: Diabetes mellitus regional intermodal truck driver insulin use: without regional intermodal truck driver use Qualified Code(s): E11.65 - Type 2 diabetes mellitus with hyperglycemia Code(s): E11.65 - Type 2 diabetes mellitus with hyperglycemia Status: Acute Assessment and Plan: Monitor blood sugars ACHS adjust accordingly sliding scale (5) Electrolyte abnormality: Code(s): E87.8 - Other disorders of electrolyte and fluid balance, not elsewhere classified Status: Acute Assessment and Plan: will check labs weekly continue to monitor. (6) Pericarditis: Qualifiers: Pericarditis type: infectious Infectious pericarditis etiology: unspecified Code(s): I31.9 - Disease of pericardium, unspecified Status: Acute Assessment and Plan: due to Tamponade during last admission Echo at [facility] shows EF of 12% w small pericardial effusion without any tamponade Monitor for now (7) Edema: Code(s): R60.9 - Edema, unspecified Status: Acute Assessment and Plan: Oral lasix Oral potassium monitor labs. Subjective Date/time seen: 02/06/22 14:02 Patient has several question about her having seizures and why she had them and when she is able to get her DL she missed two Neurology appointment due to she ended back in the hospital. I did explain to patient she would have to follow up with neurology . Last know seizure was in November while she was on the ventilator and patient does not remember it. According to patient and her sons when they extubated her and took her off sedation she did not wake up until they started her on the seizure medication . I explained to patient that she would have to follow up with Neurology for the reasoning as at this time I am unfamiliar with what happed then and he may have better incite. Exam Narrative: GENERAL:Well-appearing, Pale well-nourished, and in no acute distress. HEAD:Normocephalic, atraumatic. EYES: PERRLA and EOMI. ENT: Nares clear, no rhinorrhea . Mucous membranes moist. CHEST: Clear to diminished auscultation. required oxygen at 2l nc at all times No respiratory distress. HEART: Irregular Regular rate and rhythm decreased peripheral pulses. ABDOMEN: Soft, nontender, distended, normal active bowel sounds. EXTREMITIES: Normal range of motion. 2+ pitting bilateral leg edema. SKIN: Warm, dry, no rash. NEURO: No focal deficits. Alert and oriented x3. Objective Data Vital Signs Vital Signs: Vital Signs - 24 hr 02/05/22 16:00 02/05/22 23:17 02/06/22 08:00 Temperature 97.6 F 97.6 F 97.4 F L Pulse Rate 80 77 96 Respiratory Rate 18 20 16 Blood Pressure 128/74 106/66 112/76 Pulse Oximetry 96 95 96 Intake/Output Intake/Output: Intake & Output 02/03/22 02/04/22 02/05/22 02/06/22 23:59 23:59 23:59 23:59 Intake Total 1750 1350 1820 1030 Output Total 1 Balance 1750 1350 1819 1030 Meds/Results Medications: Active Medications Generic Name Dose Route Start Last Admin Trade Name Freq PRN Reason Stop Dose Admin Acetaminophen 650 mg 01/25/22 20:39 02/06/22 09:07 Acetaminophen 325 Mg Tablet PO 650 mg Q4H PRN Adminis
[2022-02-06] MEDS: FUROSEMIDE 20 MG TABLET PO (14:26)
[2022-02-06 15:45] VITALS: BP 140/81; PULSE 85; RESP 20; TEMP 36.3; O2SAT 95
[2022-02-06] MEDS: WARFARIN (*PBKC) 2.5 MG TABLET PO (16:33)
[2022-02-06 16:35] LABS: Glucose Point of Care 106 mg/dl (65-105)
[2022-02-06 19:25] VITALS: O2SAT 96
[2022-02-06] MEDS: metFORMIN HCL 500 MG TABLET 1000 MG PO (20:50)
[2022-02-06 20:51] LABS: Glucose Point of Care 150 mg/dl (65-105)
[2022-02-07] VITALS: BP 122/78; PULSE 79; RESP 16; TEMP 36.4; O2SAT 95
[2022-02-07] MEDS: PHENYTOIN SODIUM 100 MG EXTENDED RELEASE CAP 200 MG PO ×3 (05:49→21:27)
[2022-02-07 06:32] LABS: Anion Gap 8 mmol/L (8-16); Blood Urea Nitrogen 8 mg/dL (7-18); Calcium 8.8 mg/dL (8.5-10.1); Carbon Dioxide 29 mmol/L (21-32); Chloride 101 mmol/L (98-108); Estimated CRCL calculation 105 ml/min; Estimated Glomerular Filt Rate > 60; Glucose 102 mg/dL (70-99); Osmolality Calculated 284 mOsm/kg (285-295); Potassium 3.8 mmol/L (3.5-5.1); Sodium 138 mmol/L (136-145)
[2022-02-07 07:34] LABS: Glucose Point of Care 91 mg/dl (65-105)
[2022-02-07 08:00] VITALS: BP 118/75; PULSE 68; RESP 14; TEMP 36.4; O2SAT 96
[2022-02-07] MEDS: levETIRAcetam 500 MG TABLET 1000 MG PO ×2 (08:52→20:51)
[2022-02-07] MEDS: PANTOPRAZOLE 40 MG TABLET PO (08:53)
[2022-02-07] MEDS: POTASSIUM CHLORIDE 20 MEQ TABLET PO ×2 (08:53→16:42)
[2022-02-07] MEDS: ASPIRIN 81 MG ENTERIC TABLET PO (08:53)
[2022-02-07] MEDS: FUROSEMIDE 20 MG TABLET PO (08:53)
--- NOTE | 2022-02-07 09:20 | PM.EVENT ---
Event Note Event Note Event Note: Checked patient potassium level as she rcvd lasix yesterday Potassium went from 4.5 to 3.8 I increased potassium to bid and will check level in the am.
[2022-02-07 11:44] LABS: Glucose Point of Care 94 mg/dl (65-105)
[2022-02-07] MEDS: ACETAMINOPHEN 325 MG TABLET 650 MG PO ×2 (13:59→20:51)
[2022-02-07 15:25] VITALS: BP 121/93; PULSE 84; RESP 20; TEMP 36.4; O2SAT 93
[2022-02-07] MEDS: WARFARIN (*PBKC) 2.5 MG TABLET PO (16:42)
[2022-02-07 16:48] LABS: Glucose Point of Care 110 mg/dl (65-105)
[2022-02-07] MEDS: metFORMIN HCL 500 MG TABLET 1000 MG PO (20:50)
[2022-02-07 20:52] LABS: Glucose Point of Care 203 mg/dl (65-105)
[2022-02-08] VITALS: BP 138/78; PULSE 79; RESP 16; TEMP 36.4; O2SAT 96
[2022-02-08 05:22] LABS: INR 1.4
[2022-02-08 05:24] LABS: Anion Gap 6 mmol/L (8-16); Blood Urea Nitrogen 9 mg/dL (7-18); Carbon Dioxide 31 mmol/L (21-32); Chloride 102 mmol/L (98-108); Estimated CRCL calculation 100 ml/min; Estimated Glomerular Filt Rate > 60; Glucose 95 mg/dL (70-99); Osmolality Calculated 286 mOsm/kg (285-295); Potassium 4.1 mmol/L (3.5-5.1); Sodium 139 mmol/L (136-145)
[2022-02-08] MEDS: PHENYTOIN SODIUM 100 MG EXTENDED RELEASE CAP 200 MG PO (06:02)
[2022-02-08 07:42] LABS: Glucose Point of Care 105 mg/dl (65-105)
[2022-02-08 08:00] VITALS: BP 137/98; PULSE 85; RESP 20; TEMP 36.4; O2SAT 97
[2022-02-08] MEDS: levETIRAcetam 500 MG TABLET 1000 MG PO (08:55)
[2022-02-08] MEDS: FUROSEMIDE 20 MG TABLET PO (08:57)
[2022-02-08] MEDS: PANTOPRAZOLE 40 MG TABLET PO (08:57)
[2022-02-08] MEDS: POTASSIUM CHLORIDE 20 MEQ TABLET PO (08:57)
[2022-02-08] MEDS: ASPIRIN 81 MG ENTERIC TABLET PO (08:57)
--- NOTE | 2022-02-08 09:41 | PM.DS ---
DS: Admitting Diagnosis Discharge Date 02/08/2022 Admitting Diagnosis Atrial Fibrillation DS: Discharge Diagnosis Discharge Diagnosis (1) Atrial fibrillation: Qualifiers: Atrial fibrillation type: paroxysmal Qualified Code(s): I48.0 - Paroxysmal atrial fibrillation Code(s): I48.91 - Unspecified atrial fibrillation Status: Acute Assessment and Plan: continue coumadin changed to 3mg daily monitor INR 1.4 will recheck in 2 days continue medication from cardiology (2) Empyema: Code(s): J86.9 - Pyothorax without fistula Status: Acute Assessment and Plan: Post Antibiotics Breathing treatment and oxygen No fever (3) Seizure disorder: Code(s): G40.909 - Epilepsy, unspecified, not intractable, without status epilepticus Status: Acute Assessment and Plan: continue medication Seizure precaution (4) Type 2 diabetes mellitus with hyperglycemia: Qualifiers: Diabetes mellitus detention insulin use: without detention use Qualified Code(s): E11.65 - Type 2 diabetes mellitus with hyperglycemia Code(s): E11.65 - Type 2 diabetes mellitus with hyperglycemia Status: Acute Assessment and Plan: Monitor blood sugars ACHS adjust accordingly sliding scale Home dosage medication she will return to . (5) Electrolyte abnormality: Code(s): E87.8 - Other disorders of electrolyte and fluid balance, not elsewhere classified Status: Acute Assessment and Plan: will check labs weekly continue to monitor. (6) Pericarditis: Qualifiers: Pericarditis type: infectious Infectious pericarditis etiology: unspecified Code(s): I31.9 - Disease of pericardium, unspecified Status: Acute Assessment and Plan: due to Tamponade during last admission [facility] shows EF of 12% w small pericardial effusion without any tamponade Monitor for now (7) Edema: Code(s): R60.9 - Edema, unspecified Status: Acute Assessment and Plan: Oral lasix Oral potassium monitor labs. DS: Summary Hospital Course Reason for hospitalization: Atrial Fibrillation Hospital Course: This is a 61-year-old female that was admitted from [facility] for therapy as a swing bed. Patient has continued to improve and is now ready for discharge and will have outpatient physical therapy. Prior to arrival patient had been admitted for hypotension with syncopal episodes and shock. 2 months ago patient had respiratory failure with a pericardial effusion and tamponade patient's ejection fraction was 12% the last time it was checked. During her stay here patient has not required as much oxygen she is able to walk a lot further although her endurance is not what it used to be. Patient is eating and drinking and tolerates being up most of the day. Physical therapy has recommended continuing to see her and she is chosen to do outpatient therapy versus home health. Ms. Almeida's sons will assist in caring for her she uses a walker vitals today was 97.6, heart rate 85 blood pressure 137/98 respirations 20,97% on room air. Potassium is 4.1, sodium is 139, BUN 9, creatinine 0.67, WBCs 3.8 hemoglobin 9.8, [place] 30.7 platelets 208. Patient will have labs drawn to recheck her PT/INR as her INR is 1.4.therapeutic she will take 3 mg of Coumadin she will follow-up with her primary care provider as well as her consumer studies professor as instructed. Time Spent with Patient Time attestation: Total time spent providing and/or coordinating discharge services: Exam Narrative: GENERAL:Well-appearing, Pale well-nourished, and in no acute distress. HEAD:Normocephalic, atraumatic. EYES: PERRLA and EOMI. ENT: Nares clear, no rhinorrhea . Mucous membranes moist. CHEST: Clear to diminished auscultation. required oxygen at 2l nc at all times No respiratory distress. HEART: Irregular Regular rate and rhythm decreased peripheral p
--- NOTE | 2022-02-08 10:46 | PC.NURSE ---
Pt discharged to home. VSS and no CO of pain. Pt walking with gait belt and walker. Discharge instructions given to pt. Medications reviewed, seizure precautions reviewed , fall precautions reviewed. Pt verbalized understanding. RN transported pt to familt car via and assisted pt into car.
--- NOTE | 2022-02-10 09:09 | PC.NURSE ---
Pt states she received and understood her discharge instructions. Pt also states it was great care. Everybody was very supportive. I wouldn't be as far along as I am if it wasn't for them.
== END 2022-02-08 10:30 | disposition home or self-care (01) | DRG 947 ==
PROVIDERS: Nurse Practitioner; Admitting Provider Internal Medicine; PCP Family Medicine; Visit Provider Nurse Practitioner Family
DX: R53.1 Weakness (principal); J86.9 Pyothorax without fistula; I31.9 Disease of pericardium, unspecified; I47.1 Supraventricular tachycardia; I10 Essential (primary) hypertension; E87.8 Other disorders of electrolyte and fluid balance, not elsewhere classified; E11.9 Type 2 diabetes mellitus without complications; E78.5 Hyperlipidemia, unspecified; E66.9 Obesity, unspecified; R56.9 Unspecified convulsions; R60.9 Edema, unspecified; F41.9 Anxiety disorder, unspecified; Z86.711 Personal history of pulmonary embolism; Z79.01 Long term (current) use of anticoagulants; Z87.891 Personal history of nicotine dependence; Z86.718 Personal history of other venous thrombosis and embolism
CPT/HCPCS: 36415; 80048; 82948; 85027; 85610; 97110; 97161; 97165; 97530; 97535; A9270

== ENCOUNTER 2022-02-10 09:29 | Outpatient (CLI) | payer BC, SELFPAY ==
[2022-02-10 10:06] LABS: INR 1.8; Prothrombin Time 18.6 Seconds (9.50-12.10)
== END 2022-02-10 09:30 | disposition home or self-care (01) ==
LOC: CHSLAB 09:33
PROVIDERS: PCP Internal Medicine; Visit Provider Nurse Practitioner Family
DX: I48.91 Unspecified atrial fibrillation (principal)
CPT/HCPCS: 36415; 85610

== ENCOUNTER 2022-02-15 08:56 | Outpatient (RCR) | payer BC, SELFPAY ==
--- NOTE | 2022-02-15 09:41 | PTOPEVAL ---
Thank you for referring Aleah Almeida to [facility].? The patient is scheduled to be seen for therapy? __2__x/week for 10 visits. Please review, sign, date and return this plan of care AUNDREA. I agree with and certify that the following plan of care is medically necessary. Referring Physician Date Admitting Provider: Attending Provider: Sabine Bauer NP Referring Provider: *PT Outpatient Evaluation Start: 02/15/22 09:12 Freq: Status: Active Protocol: Document 02/15/22 09:12 [facility] (Rec: 02/15/22 09:36 [facility] [id number]) Therapy Assessment Status Assessment Status Assessment Status Evaluation Outpatient Past Medical History Neurological History Hx Seizures Yes Cardiovascular History Hx Congestive Heart Failure Yes Hx Deep Vein Thrombosis Yes Hx Hypercholesterolemia Yes Hx Hypertension Yes Respiratory History Hx Pulmonary Embolism Yes Hx Other Respiratory Disorders Yes: Chest tube x3. Gastrointestinal History Hx Appendectomy Yes Hx Cholecystectomy Yes Genitourinary History Hx Genitourinary Disorders No Significant History Musculoskeletal History Hx Orthopedic Surgery Yes: left rotator cuff surgery Hematological History Hx Hematological Disorders No Significant History Endocrine History Hx Diabetes Yes HEENT History Hx HEENT Disorders No Significant History Integumentary History Hx Skin Disorders No Significant History Reproductive History Hx Section Yes: x2 Psychosocial History Hx Psychiatric Disorders No Significant History Pain History History of Any Previous or Ongoing No Significant History Instance of Pain Anesthesia History Hx Anesthesia Reactions No Significant History Evaluation Information Problem Diagnosis generalized weakness Onset 11/22/21 Subjective Information Pt. reports that she developed Query Text:As Reported By Patient/ SOB in Feburary. She states Family that she was admitted to the hospital due to respiratory failure. She reports she was hospitalized and participated in rehab up until 1 week ago. She states that she returned home a week ago. She is currently using a walker. She is not driving. She states that she has poor endurance and cannot walk very far. Pt. reports that her goal for therapy
--- NOTE | 2022-02-19 10:03 | OTOPEVAL ---
Thank you for referring Aleah Almeida to [facility].? The patient is scheduled to be seen for therapy? ____x/week for ___ weeks. Please review, sign, date and return this plan of care AUNDREA. I agree with and certify that the following plan of care is medically necessary. Referring Physician Date Admitting Provider: Attending Provider: Efrain Engle MD Referring Provider: *OT Outpatient Evaluation Start: 02/19/22 09:06 Freq: Status: Active Protocol: Document 02/19/22 09:06 [facility] (Rec: 02/19/22 09:59 [facility] [id number]) Therapy Assessment Status Assessment Status Assessment Status Evaluation Outpatient Past Medical History Neurological History Hx Seizures Yes Cardiovascular History Hx Congestive Heart Failure Yes Hx Deep Vein Thrombosis Yes Hx Hypercholesterolemia Yes Hx Hypertension Yes Respiratory History Hx Pulmonary Embolism Yes Hx Other Respiratory Disorders Yes: Chest tube x3. Gastrointestinal History Hx Appendectomy Yes Hx Cholecystectomy Yes Genitourinary History Hx Genitourinary Disorders No Significant History Musculoskeletal History Hx Orthopedic Surgery Yes: left rotator cuff surgery Hematological History Hx Hematological Disorders No Significant History Endocrine History Hx Diabetes Yes HEENT History Hx HEENT Disorders No Significant History Integumentary History Hx Skin Disorders No Significant History Reproductive History Hx Section Yes: x2 Psychosocial History Hx Psychiatric Disorders No Significant History Pain History History of Any Previous or Ongoing No Significant History Instance of Pain Anesthesia History Hx Anesthesia Reactions No Significant History Evaluation Information Problem Diagnosis deconditioning and functional impairment Onset 11/21/21 Cause sepsis Subjective Information Patient went to the ER in Query Text:As Reported By Patient/ [place] on 11/21/21 and was Family transferred to [place] and then airlifted to [facility] a few days after that. Patient spent several weeks in the ICU and then went to a [facility] facility for ~10 days and then sent back to [facility] for another ~8-10 days. Patient transferred to this facility as a skilled swing bed from 01/25/22 until 02/08/18
--- NOTE | 2022-03-12 10:03 | PTOPEVAL ---
Thank you for referring Aleah Almeida to [facility].? The patient is scheduled to be seen for therapy? ____x/week for ___ weeks. Please review, sign, date and return this plan of care AUNDREA. I agree with and certify that the following plan of care is medically necessary. Referring Physician Date Admitting Provider: Attending Provider: Efrain Engle MD Referring Provider: *PT Outpatient Evaluation Start: 02/15/22 09:12 Freq: Status: Active Protocol: Document 03/12/22 09:24 [facility] (Rec: 03/12/22 09:59 [facility] [id number]) Therapy Assessment Status Assessment Status Assessment Status Re-evaluation Outpatient Past Medical History Neurological History Hx Seizures Yes Cardiovascular History Hx Congestive Heart Failure Yes Hx Deep Vein Thrombosis Yes Hx Hypercholesterolemia Yes Hx Hypertension Yes Respiratory History Hx Pulmonary Embolism Yes Hx Other Respiratory Disorders Yes: Chest tube x3. Gastrointestinal History Hx Appendectomy Yes Hx Cholecystectomy Yes Genitourinary History Hx Genitourinary Disorders No Significant History Musculoskeletal History Hx Orthopedic Surgery Yes: left rotator cuff surgery Hematological History Hx Hematological Disorders No Significant History Endocrine History Hx Diabetes Yes HEENT History Hx HEENT Disorders No Significant History Integumentary History Hx Skin Disorders No Significant History Reproductive History Hx Section Yes: x2 Psychosocial History Hx Psychiatric Disorders No Significant History Pain History History of Any Previous or Ongoing No Significant History Instance of Pain Anesthesia History Hx Anesthesia Reactions No Significant History Evaluation Information Problem Diagnosis deconditioning and functional impairment Onset 11/21/21 Subjective Information Pt reports that she has been Query Text:As Reported By Patient/ feeling much better since Family november. She feels stronger, but often gets dizzy and has to limit the activity she is doing. She states that walking is going well, but often catches her R foot on the floor when walking due to not being able to lift her foot up well enough. 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 Pt is
--- NOTE | 2022-03-22 09:34 | OTOPEVAL ---
Thank you for referring Aleah Almeida to [facility].? The patient is scheduled to be seen for therapy? ____x/week for ___ weeks. Please review, sign, date and return this plan of care AUNDREA. I agree with and certify that the following plan of care is medically necessary. Referring Physician Date Admitting Provider: Attending Provider: Efrain Engle MD Referring Provider: *OT Outpatient Evaluation Start: 02/19/22 09:06 Freq: Status: Active Protocol: Document 03/22/22 08:45 [facility] (Rec: 03/22/22 09:33 [facility] [id number]) Therapy Assessment Status Assessment Status Assessment Status Re-evaluation Outpatient Past Medical History Neurological History Hx Seizures Yes Cardiovascular History Hx Congestive Heart Failure Yes Hx Deep Vein Thrombosis Yes Hx Hypercholesterolemia Yes Hx Hypertension Yes Respiratory History Hx Pulmonary Embolism Yes Hx Other Respiratory Disorders Yes: Chest tube x3. Gastrointestinal History Hx Appendectomy Yes Hx Cholecystectomy Yes Genitourinary History Hx Genitourinary Disorders No Significant History Musculoskeletal History Hx Orthopedic Surgery Yes: left rotator cuff surgery Hematological History Hx Hematological Disorders No Significant History Endocrine History Hx Diabetes Yes HEENT History Hx HEENT Disorders No Significant History Integumentary History Hx Skin Disorders No Significant History Reproductive History Hx Section Yes: x2 Psychosocial History Hx Psychiatric Disorders No Significant History Pain History History of Any Previous or Ongoing No Significant History Instance of Pain Anesthesia History Hx Anesthesia Reactions No Significant History Evaluation Information Problem Subjective Information Patient reports that she was Query Text:As Reported By Patient/ able to stand at the sink and Family wash her hair yesterday. Patient states that she feels she is doing better overall. Patient continues to have a goal of returning to her house . She continues to struggle with steps. Patient states that she is doing more in the kitchen and is able to do some cooking. She also reports that she is also doing some laundry. Pain Assessment Timing of Pain Assessment Timing of Pain Assessment Re-assessment Self Report Self Report Pain Level 0 Pain Score Pain Score
--- NOTE | 2022-04-13 14:41 | PTOPEVAL ---
Thank you for referring Aleah Almeida to [facility].? The patient is scheduled to be seen for therapy? ____x/week for ___ weeks. Please review, sign, date and return this plan of care AUNDREA. I agree with and certify that the following plan of care is medically necessary. Referring Physician Date Admitting Provider: Attending Provider: Efrain Engle MD Referring Provider: *PT Outpatient Evaluation Start: 02/15/22 09:12 Freq: Status: Active Protocol: Document 04/13/22 08:00 [facility] (Rec: 04/13/22 09:50 [facility] [id number]) Therapy Assessment Status Assessment Status Assessment Status Re-evaluation Outpatient Past Medical History Neurological History Hx Seizures Yes Cardiovascular History Hx Congestive Heart Failure Yes Hx Deep Vein Thrombosis Yes Hx Hypercholesterolemia Yes Hx Hypertension Yes Respiratory History Hx Pulmonary Embolism Yes Hx Other Respiratory Disorders Yes: Chest tube x3. Gastrointestinal History Hx Appendectomy Yes Hx Cholecystectomy Yes Genitourinary History Hx Genitourinary Disorders No Significant History Musculoskeletal History Hx Orthopedic Surgery Yes: left rotator cuff surgery Hematological History Hx Hematological Disorders No Significant History Endocrine History Hx Diabetes Yes HEENT History Hx HEENT Disorders No Significant History Integumentary History Hx Skin Disorders No Significant History Reproductive History Hx Section Yes: x2 Psychosocial History Hx Psychiatric Disorders No Significant History Pain History History of Any Previous or Ongoing No Significant History Instance of Pain Anesthesia History Hx Anesthesia Reactions No Significant History Evaluation Information Problem Diagnosis deconditioning and functional impairment Onset 11/21/21 Subjective Information Pt reports that she has been Query Text:As Reported By Patient/ doing much better since Family beginning therapy. She has been using a cane when walking around the house with her kids spotting her. She uses a walker for the majority of the time when walking around the house and in the community. When she is walking at night, she always uses a walker due to her fear of falling. She states that she is yet to attempt using stairs with a
--- NOTE | 2022-04-16 09:28 | OTOPEVAL ---
Thank you for referring Aleah Almeida to [facility].? The patient is scheduled to be seen for therapy? ____x/week for ___ weeks. Please review, sign, date and return this plan of care AUNDREA. I agree with and certify that the following plan of care is medically necessary. Referring Physician Date Admitting Provider: Attending Provider: Efrain Engle MD Referring Provider: *OT Outpatient Evaluation Start: 02/19/22 09:06 Freq: Status: Active Protocol: Document 04/16/22 08:43 [facility] (Rec: 04/16/22 09:25 [facility] [id number]) Therapy Assessment Status Assessment Status Assessment Status Discharge Outpatient Past Medical History Neurological History Hx Seizures Yes Cardiovascular History Hx Congestive Heart Failure Yes Hx Deep Vein Thrombosis Yes Hx Hypercholesterolemia Yes Hx Hypertension Yes Respiratory History Hx Pulmonary Embolism Yes Hx Other Respiratory Disorders Yes: Chest tube x3. Gastrointestinal History Hx Appendectomy Yes Hx Cholecystectomy Yes Genitourinary History Hx Genitourinary Disorders No Significant History Musculoskeletal History Hx Orthopedic Surgery Yes: left rotator cuff surgery Hematological History Hx Hematological Disorders No Significant History Endocrine History Hx Diabetes Yes HEENT History Hx HEENT Disorders No Significant History Integumentary History Hx Skin Disorders No Significant History Reproductive History Hx Section Yes: x2 Psychosocial History Hx Psychiatric Disorders No Significant History Pain History History of Any Previous or Ongoing No Significant History Instance of Pain Anesthesia History Hx Anesthesia Reactions No Significant History Evaluation Information Problem Subjective Information Patient reports that overall Query Text:As Reported By Patient/ she is doing much better. Family Patient is now able to eat 3 meals/day and the dizziness has greatly improved. Patient reports that she is performing all ADLs and most IADLs with mod. independence. Pain Assessment Timing of Pain Assessment Timing of Pain Assessment Re-assessment Self Report Self Report Pain Level 0 Pain Score Pain Score 0: Self Report Upper Extremity Muscle Strength Testing General Upper Extremity Strength Reason Not Measured WNL/Left,WNL/Right Gross Upper Extremity Strength Comments 5/5 General Exercise General Exercises Exercise Description B horizontal abduction, Query Text:Record Sets, Reps, external rotation, elbow Resistance, and P
--- NOTE | 2022-04-16 09:32 | OTOPEVAL ---
Thank you for referring Aleah Almeida to [facility][Note 3].? The patient is scheduled to be seen for therapy? ____x/week for ___ weeks. Please review, sign, date and return this plan of care AUNDREA. I agree with and certify that the following plan of care is medically necessary. Referring Physician Date Admitting Provider: Attending Provider: Efrain Engle MD Referring Provider: *OT Outpatient Evaluation Start: 02/19/22 09:06 Freq: Status: Active Protocol: Document 04/16/22 08:43 [facility] (Rec: 04/16/22 09:25 [facility] [id number]) Therapy Assessment Status Assessment Status Assessment Status Discharge Outpatient Past Medical History Neurological History Hx Seizures Yes Cardiovascular History Hx Congestive Heart Failure Yes Hx Deep Vein Thrombosis Yes Hx Hypercholesterolemia Yes Hx Hypertension Yes Respiratory History Hx Pulmonary Embolism Yes Hx Other Respiratory Disorders Yes: Chest tube x3. Gastrointestinal History Hx Appendectomy Yes Hx Cholecystectomy Yes Genitourinary History Hx Genitourinary Disorders No Significant History Musculoskeletal History Hx Orthopedic Surgery Yes: left rotator cuff surgery Hematological History Hx Hematological Disorders No Significant History Endocrine History Hx Diabetes Yes HEENT History Hx HEENT Disorders No Significant History Integumentary History Hx Skin Disorders No Significant History Reproductive History Hx Section Yes: x2 Psychosocial History Hx Psychiatric Disorders No Significant History Pain History History of Any Previous or Ongoing No Significant History Instance of Pain Anesthesia History Hx Anesthesia Reactions No Significant History Evaluation Information Problem Subjective Information Patient reports that overall Query Text:As Reported By Patient/ she is doing much better. Family Patient is now able to eat 3 meals/day and the dizziness has greatly improved. Patient reports that she is performing all ADLs and most IADLs with mod. independence. Pain Assessment Timing of Pain Assessment Timing of Pain Assessment Re-assessment Self Report Self Report Pain Level 0 Pain Score Pain Score 0: Self Report Upper Extremity Muscle Strength Testing General Upper Extremity Strength Reason Not Measured WNL/Left,WNL/Right Gross Upper Extremity Strength Comments 5/5 General Exercise General Exercises Exercise Description B horizontal abduction, Query Text:Record Sets, Reps, external rotation, elbow Resistance, and P
== END 2022-05-03 23:59 | disposition home or self-care (01) ==
LOC: CHSPT 08:56
PROVIDERS: PCP Internal Medicine; Visit Provider Internal Medicine
DX: R53.1 Weakness (principal)
CPT/HCPCS: 97110; 97112; 97116; 97161; 97165; 97530; 97535

== ENCOUNTER 2022-02-19 10:04 | Outpatient (CLI) | payer BC, SELFPAY ==
[2022-02-19 10:37] LABS: Basophils Absolute Auto 0.01 K/mm3 (0.00-0.10); Basophils Percent Auto 0.2 % (0.0-1.0); Eosinophils Absolute Auto 0.08 K/mm3 (0.02-0.50); Eosinophils Percent Auto 1.9 % (1.0-6.0); Hematocrit 36.1 % (35.0-49.0); Immature Granulocyte Absolute 0.02 K/mm3 (0.00-0.00); Immature Granulocyte Percent A 0.5 % (0.0-0.0); Lymphocytes Absolute Auto 2.18 K/mm3 (1.10-4.50); Lymphocytes Percent Auto 52.7 % (18.0-42.0); Mean Corpuscular HGB Conc 33.2 g/dL (32.0-36.0); Mean Corpuscular Hemoglobin 30.1 pg (27.0-31.0); Mean Corpuscular Volume 90.5 fL (78.0-102.0); Mean Platelet Volume 9.3 fl (9.2-11.8); Monocytes Absolute Auto 0.25 K/mm3 (0.10-0.90); Neutrophils Absolute Auto 1.6 K/mm3 (1.7-7.2); Neutrophils Percent Auto 38.7 % (50.0-70.0); Platelet Count Result 195 K/mm3 (150-420); Red Blood Count 3.99 M/mm3 (4.20-5.40); Red Cell Distribution Width 12.6 % (11.6-14.4); White Blood Count 4.1 K/mm3 (4.8-10.8)
[2022-02-19 10:43] LABS: INR 3.9; Prothrombin Time 39.1 Seconds (9.50-12.10)
[2022-02-19 10:58] LABS: Alanine Aminotransferase 55 U/L (14-59); Albumin Level 3.5 g/dL (3.4-5.0); Alkaline Phosphatase 105 U/L (46-116); Anion Gap 8 mmol/L (8-16); Aspartate Amino Transferase 50 U/L (15-37); Bilirubin,Total 0.2 mg/dL (0.00-1.00); Blood Urea Nitrogen 8 mg/dL (7-18); CRP < 0.5 mg/dL (0.0-0.9); Calcium 8.8 mg/dL (8.5-10.1); Carbon Dioxide 26 mmol/L (21-32); Chloride 103 mmol/L (98-108); Estimated Glomerular Filt Rate > 60; Glucose 117 mg/dL (70-99); Osmolality Calculated 283 mOsm/kg (285-295); Potassium 4.1 mmol/L (3.5-5.1); Sodium 137 mmol/L (136-145); Thyroid Stimulating Hormone 2.54 uIU/mL (0.36-3.74)
[2022-02-24 05:11] LABS: Hepatitis A Antibody IgM Nonreactive; Hepatitis B Core Antibody Nonreactive (Nonreactive); Hepatitis B Surface Antigen Nonreactive (Nonreactive); Hepatitis C Signal to Cutoff 0.03 ratio (<1.00); Hepatitis C Virus Antibody Nonreactive (Nonreactive)
== END 2022-02-19 10:05 | disposition home or self-care (01) ==
LOC: CHSLAB 10:07
PROVIDERS: PCP Internal Medicine; Visit Provider Internal Medicine
DX: R63.0 Anorexia (principal); Z79.01 Long term (current) use of anticoagulants; R94.5 Abnormal results of liver function studies
CPT/HCPCS: 36415; 80053; 80074; 84443; 85025; 85610; 86140

== ENCOUNTER 2022-03-01 09:40 | Outpatient (CLI) | payer BC, SELFPAY ==
[2022-03-01 09:59] LABS: Basophils Absolute Auto 0.03 K/mm3 (0.00-0.10); Basophils Percent Auto 0.6 % (0.0-1.0); Eosinophils Absolute Auto 0.12 K/mm3 (0.02-0.50); Eosinophils Percent Auto 2.2 % (1.0-6.0); Hematocrit 35.7 % (35.0-49.0); Hemoglobin 11.8 g/dL (12.0-15.0); Immature Granulocyte Absolute 0.01 K/mm3 (0.00-0.00); Immature Granulocyte Percent A 0.2 % (0.0-0.0); Lymphocytes Absolute Auto 2.14 K/mm3 (1.10-4.50); Lymphocytes Percent Auto 39.6 % (18.0-42.0); Mean Corpuscular HGB Conc 33.1 g/dL (32.0-36.0); Mean Corpuscular Hemoglobin 29.9 pg (27.0-31.0); Mean Corpuscular Volume 90.4 fL (78.0-102.0); Mean Platelet Volume 8.8 fl (9.2-11.8); Monocytes Absolute Auto 0.31 K/mm3 (0.10-0.90); Monocytes Percent Auto 5.7 % (2.0-11.0); Neutrophils Absolute Auto 2.8 K/mm3 (1.7-7.2); Neutrophils Percent Auto 51.7 % (50.0-70.0); Platelet Count Result 210 K/mm3 (150-420); Red Blood Count 3.95 M/mm3 (4.20-5.40); Red Cell Distribution Width 12.5 % (11.6-14.4); White Blood Count 5.4 K/mm3 (4.8-10.8)
[2022-03-01 10:13] LABS: Prothrombin Time 20.2 Seconds (9.50-12.10)
[2022-03-01 10:17] LABS: Alanine Aminotransferase 62 U/L (14-59); Albumin Level 3.4 g/dL (3.4-5.0); Alkaline Phosphatase 119 U/L (46-116); Anion Gap 9 mmol/L (8-16); Aspartate Amino Transferase 40 U/L (15-37); Bilirubin,Total 0.2 mg/dL (0.00-1.00); Blood Urea Nitrogen 9 mg/dL (7-18); Calcium 8.8 mg/dL (8.5-10.1); Carbon Dioxide 27 mmol/L (21-32); Chloride 101 mmol/L (98-108); Estimated Glomerular Filt Rate > 60; Glucose 123 mg/dL (70-99); Osmolality Calculated 283 mOsm/kg (285-295); Phenytoin Dilantin 19 ug/mL (10-20); Potassium 3.8 mmol/L (3.5-5.1); Sodium 137 mmol/L (136-145); Total Protein 7.1 g/dL (6.4-8.2)
[2022-03-04 04:31] LABS: Levetiracetam Keppra 23.1 mcg/mL (12.0-46.0)
[2022-03-09 08:35] LABS: Reference Lab Test Name ANTIPHOSPHOLIPID AB
== END 2022-03-01 09:41 | disposition home or self-care (01) ==
LOC: CHSLAB 09:45
PROVIDERS: PCP Internal Medicine; Visit Provider Internal Medicine
DX: R94.5 Abnormal results of liver function studies (principal); Z79.01 Long term (current) use of anticoagulants; G40.909 Epilepsy, unspecified, not intractable, without status epilepticus
CPT/HCPCS: 36415; 80053; 80177; 80185; 84311; 85025; 85610; 86148

== ENCOUNTER 2022-05-07 07:19 | Outpatient (CLI) | payer BC, SELFPAY ==
--- NOTE | ~2022-05-07 | XR_ITS ---
XR chest 2V 05/07/2022 10:20 Indication: Chest pain Procedure: 2 view chest Comparison: Comparison to multiple prior studies sequentially, with oldest reviewed study dated 11/22. Findings: Heart size normal. Right-sided aortic arch. Calcified granuloma left lung base. Small left pleural effusion. Left basilar atelectasis. No pneumothorax identified. Impression: 1: Left basilar atelectasis. 2: Small left pleural effusion. 3: Right-sided aortic arch. Reviewed, dictated and finalized at location A. Impression: 1: Left basilar atelectasis. 2: Small left pleural effusion. 3: Right-sided aortic arch.
[2022-05-07 07:33] LABS: Basophils Absolute Auto 0.04 K/mm3 (0.00-0.10); Basophils Percent Auto 0.5 % (0.0-1.0); Eosinophils Percent Auto 1.2 % (1.0-6.0); Hematocrit 35.3 % (35.0-49.0); Hemoglobin 11.6 g/dL (12.0-15.0); Immature Granulocyte Absolute 0.03 K/mm3 (0.00-0.00); Immature Granulocyte Percent A 0.4 % (0.0-0.0); Lymphocytes Absolute Auto 2.32 K/mm3 (1.10-4.50); Lymphocytes Percent Auto 27.6 % (18.0-42.0); Mean Corpuscular HGB Conc 32.9 g/dL (32.0-36.0); Mean Corpuscular Hemoglobin 30.4 pg (27.0-31.0); Mean Corpuscular Volume 92.4 fL (78.0-102.0); Mean Platelet Volume 9.3 fl (9.2-11.8); Monocytes Absolute Auto 0.62 K/mm3 (0.10-0.90); Monocytes Percent Auto 7.4 % (2.0-11.0); Neutrophils Absolute Auto 5.3 K/mm3 (1.7-7.2); Neutrophils Percent Auto 62.9 % (50.0-70.0); Platelet Count Result 216 K/mm3 (150-420); Red Blood Count 3.82 M/mm3 (4.20-5.40); Red Cell Distribution Width 13.2 % (11.6-14.4); White Blood Count 8.4 K/mm3 (4.8-10.8)
[2022-05-07 07:45] LABS: Hemoglobin A1C 5.3 % (<5.7)
[2022-05-07 07:51] LABS: Alanine Aminotransferase 21 U/L (14-59); Albumin Level 3.3 g/dL (3.4-5.0); Alkaline Phosphatase 75 U/L (46-116); Anion Gap 10 mmol/L (8-16); Aspartate Amino Transferase 11 U/L (15-37); Bilirubin,Total 0.6 mg/dL (0.00-1.00); Blood Urea Nitrogen 14 mg/dL (7-18); Calcium 9.3 mg/dL (8.5-10.1); Carbon Dioxide 26 mmol/L (21-32); Chloride 104 mmol/L (98-108); Estimated Glomerular Filt Rate > 60; Glucose 134 mg/dL (70-99); Osmolality Calculated 292 mOsm/kg (285-295); Potassium 4.1 mmol/L (3.5-5.1); Sodium 140 mmol/L (136-145); Total Protein 7.2 g/dL (6.4-8.2)
[2022-05-07 07:52] LABS: Prothrombin Time 11.4 Seconds (9.50-12.10)
--- NOTE | 2022-05-07 10:24 | ECG_ITS ---
Measurements Intervals [place] Rate: 168 P: [place]: 0 QRS: 21 QRSD: 79 T: 0 QT: 158 QTc: 264 Interpretive Statements ATRIAL FLUTTER/TACHYCARDIA WITH RAPID VENTRICULAR RESPONSE NONSPECIFIC ST & T-WAVE ABNORMALITY- ANTEROLAT/INF LEADS BASELINE ARTIFACT- II, III, AVL ABNORMAL ECG Electronically Signed On 05-07-2022 10:58:05 CDT by Nitesh Mcgregor D.O.
[2022-05-07 10:35] LABS: Creatine Kinase 16 U/L (26-192); Troponin I 5.9 ng/L (0.00-60.4)
[2022-05-07 10:36] LABS: Creatine Kinase MB < 0.50 ng/mL (0.00-5.00)
== END 2022-05-07 07:20 | disposition home or self-care (01) ==
PROVIDERS: PCP Internal Medicine; Visit Provider Internal Medicine
DX: R07.9 Chest pain, unspecified (principal); Z79.01 Long term (current) use of anticoagulants; E11.9 Type 2 diabetes mellitus without complications
CPT/HCPCS: 36415; 71046; 80053; 82550; 82553; 83036; 84484; 85025; 85380; 85610; 93005

== ENCOUNTER 2022-05-07 10:41 | Emergency (ER) | payer BC, SELFPAY ==
[2022-05-07] VITALS (7 sets, daily range): BP systolic 87–115; BP diastolic 68–94; PULSE 74–167; RESP 20–22; TEMP 35.7–37.1; O2SAT 94–99
[2022-05-07 11:36] LABS: Basophils Absolute Auto 0.04 K/mm3 (0.00-0.10); Basophils Percent Auto 0.6 % (0.0-1.0); Eosinophils Absolute Auto 0.08 K/mm3 (0.02-0.50); Eosinophils Percent Auto 1.1 % (1.0-6.0); Hemoglobin 11.2 g/dL (12.0-15.0); Immature Granulocyte Absolute 0.02 K/mm3 (0.00-0.00); Immature Granulocyte Percent A 0.3 % (0.0-0.0); Lymphocytes Absolute Auto 2.04 K/mm3 (1.10-4.50); Lymphocytes Percent Auto 29.1 % (18.0-42.0); Mean Corpuscular HGB Conc 32.9 g/dL (32.0-36.0); Mean Corpuscular Hemoglobin 30.5 pg (27.0-31.0); Mean Corpuscular Volume 92.6 fL (78.0-102.0); Mean Platelet Volume 9.8 fl (9.2-11.8); Monocytes Absolute Auto 0.54 K/mm3 (0.10-0.90); Monocytes Percent Auto 7.7 % (2.0-11.0); Neutrophils Absolute Auto 4.3 K/mm3 (1.7-7.2); Neutrophils Percent Auto 61.2 % (50.0-70.0); Platelet Count Result 199 K/mm3 (150-420); Red Blood Count 3.67 M/mm3 (4.20-5.40)
[2022-05-07] MEDS: SODIUM CHLORIDE 0.9% IV 1,000 ML 999 ML IV CONT (11:43)
[2022-05-07] MEDS: METOPROLOL TARTRATE INJ 5 MG/5 ML VIAL 2.5 MG IV PUSH (11:44)
[2022-05-07 11:49] LABS: Lactic Acid Reflex 0.9 mmol/L (0.4-2.0)
[2022-05-07 11:56] LABS: Alanine Aminotransferase 19 U/L (14-59); Albumin Level 3.3 g/dL (3.4-5.0); Alkaline Phosphatase 73 U/L (46-116); Anion Gap 12 mmol/L (8-16); Aspartate Amino Transferase 13 U/L (15-37); Bilirubin,Total 0.5 mg/dL (0.00-1.00); Blood Urea Nitrogen 14 mg/dL (7-18); Calcium 9.2 mg/dL (8.5-10.1); Carbon Dioxide 26 mmol/L (21-32); Chloride 102 mmol/L (98-108); Estimated Glomerular Filt Rate > 60; Ethanol < 3 mg/dL (0-6); Glucose 123 mg/dL (70-99); Osmolality Calculated 291 mOsm/kg (285-295); Potassium 3.9 mmol/L (3.5-5.1); Sodium 140 mmol/L (136-145); Total Protein 7.4 g/dL (6.4-8.2); Troponin I 5.9 ng/L (0.00-60.4)
[2022-05-07 12:17] LABS: Add Urine Microscopic? YES; Appearance Urine Clear (Clear); Bilirubin Urine Negative (Negative); Blood Urine Negative (Negative); Color Urine Light Yellow (Yellow); Glucose Urine UA Negative (Negative); Ketones Urine Negative (Negative); Leukocyte Esterase Ur Trace (Negative); Nitrate Urine Negative (Negative); Protein Urine Negative (Negative); Specific Grav Ur <= 1.005 (1.010-1.020); Urobilinogen Urine 0.2 mg/dL (0.2-1.0)
[2022-05-07 12:21] LABS: Bacteria Urine Trace /hpf; RBC Urine None seen /hpf (0-2); Squamous Epithelial Cell Urine Few /hpf (Few); WBC Urine 0-3 /hpf (0-3)
[2022-05-07 12:25] LABS: Amphetamine Screen Urine Negative (Negative); Barbiturate Screen Urine Negative (Negative); Benzodiazepines Screen Urine Negative (Negative); Cannabinoid Screen Urine Negative (Negative); Cocaine Screen Urine Negative (Negative); Methadone Screen Urine Negative (Negative); Opiate Screen Urine Negative (Negative); Phencyclidine Screen Urine Negative (Negative)
[2022-05-07 12:38] LABS: INR 1.1; Prothrombin Time 11.5 Seconds (9.50-12.10)
[2022-05-07] MEDS: SODIUM CHLORIDE 0.9% IV 500 ML 999 ML IV CONT ×2 (13:03→14:24)
--- NOTE | 2022-05-07 14:06 | ECG_ITS ---
Measurements Intervals [place] Rate: 81 P: 42 AL: 157 QRS: 38 QRSD: 93 T: -13 QT: 376 QTc: 439 Interpretive Statements SINUS RHYTHM POSSIBLE LEFT ATRIAL ENLARGEMENT BORDERLINE R WAVE PROGRESSION, ANTERIOR LEADS LOW QRS VOLTAGE IN PRECORDIAL LEADS BORDERLINE ST-T WAVE ABNORMALITY- ANTEROLAT/INF LEADS BASELINE ARTIFACT- I, III, AVL BORDERLINE ECG Electronically Signed On 05-07-2022 16:07:46 CDT by Nitesh Mcgregor D.O.
[2022-05-07] MEDS: SODIUM CHLORIDE 0.9% IV 1,000 ML 150 ML IV CONT (14:23)
--- NOTE | 2022-05-07 15:31 | ED.ARRPALP ---
HPI - Arrhythmia/Palpitations General Chief Complaint: Arrhythmia/Palpitations Stated Complaint: SENT FOR ABNORMAL EKG Time Seen by Provider: 05/07/22 10:45 Source: patient and RN notes reviewed Mode of arrival: ambulatory Limitations: no limitations History of Present Illness complaint: rapid heart beat and palpitations Onset (ago): day(s) (1) Duration: constant Severity: mild Context: occurred during rest and occurred during exertion Arrhythmia history: atrial fibrillation Associated symptoms: chest pain and shortness of breath Related Data Home Medications Medication Instructions Recorded Confirmed acetaminophen 325 mg capsule 650 mg PO Q4H PRN Fever Or Pain 01/25/22 05/07/22 (Tylenol) metformin 1,000 mg tablet 1,000 mg PO DAILY 05/07/22 05/07/22 warfarin 3 mg tablet 6 mg PO DAILY 05/07/22 05/07/22 Allergies Allergy/AdvReac Type Severity Reaction Status Date / Time bupropion Allergy Mild Palpitation Verified 11/20/21 20:12 s iodine Allergy Unknown Anaphylaxis Verified 11/20/21 20:12 Review of Systems Review of Systems: All systems reviewed & are unremarkable except as noted in HPI and below Constitutional: Constitutional: Reports no additional constitutional complaints Eyes: Eyes: Reports no additional eye complaints ENT: Reports system reviewed and no additional complaints, except as documented Cardiovascular: Cardiovascular: Reports no additional cardiovascular complaints and Reports rapid heart rate Comments: heart palpitations. Respiratory: Respiratory: Reports no additional respiratory complaints Gastrointestinal: Gastrointestinal: Reports no additional gastrointestinal complaints Genitourinary: Genitourinary: Reports no additional female genitourinary complaints Musculoskeletal: Musculoskeletal: Reports no additional musculoskeletal complaints Integumentary/Breasts: Skin/Breast: Reports system reviewed and no additional complaints, except as docu Neurologic: Reports system reviewed and no additional complaints, except as documented Psychiatric: Psychiatric: Reports no additional psychiatric complaints Endocrine: Endocrine: Reports no additional endocrine complaints Hematologic/Lymphatic: Hematologic/Lymphatic: Reports no additional hematologic/lymphatic complaints Allergic/Immunologic: Allergic/Immunologic: Reports no additional allergic/immunologic complaints [facility] Past Medical History Medical History Anxiety Atrial fibrillation Dyslipidemia Empyema History of pulmonary embolism Hypertension Type 2 diabetes mellitus without complication, without long-term current use of insulin Surgical History Surgical History History of appendectomy History of repair of left rotator cuff Status post cholecystectomy Family History Family History Other Diabetes mellitus Family history of coronary artery disease Hypertension Social History Social History Social History: The patient lives at home with her 2 adult sons. 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 Smoking packs per day: 1.5 Smoking cigarettes per day: 30.0 Years smoked: 25 Smoking pack-years: 37.50 Smoking status: Former smoker Tobacco type: cigarettes Second hand tobacco smoke exposure: No Alcohol intake: never Substance use: never Spiritual care concerns: No Exam Const: General: no acute distress and diaphoretic Nutritional Appearance: well nourished Orientation/consciousness: patient oriented x3 Limitations: no limitations HENMT: Head: normal to inspection Ears: external ears normal, TM's normal bilaterally and EAC's normal General nose exam: Normal external nose present and Normal nares present Face and sinus: normal facial exam and sinuses nontender Mouth: Yes N
--- NOTE | 2022-05-07 16:31 | PCDIET ---
assisted to car per wheelchair with rn, pt up and out to get into car without difficulty.
== END 2022-05-07 16:31 | disposition home or self-care (01) ==
PROVIDERS: Emergency Provider Emergency Medicine; PCP Internal Medicine
DX: I48.20 Chronic atrial fibrillation, unspecified (principal); E86.0 Dehydration; E11.9 Type 2 diabetes mellitus without complications; E78.5 Hyperlipidemia, unspecified; I10 Essential (primary) hypertension; Z79.01 Long term (current) use of anticoagulants; F41.9 Anxiety disorder, unspecified; Z86.711 Personal history of pulmonary embolism; Z87.891 Personal history of nicotine dependence; Z79.84 Long term (current) use of oral hypoglycemic drugs
CPT/HCPCS: 80053; 80307; 81001; 83605; 84484; 85025; 85610; 85730; 93005; 96361; 96374; 99284; J7030; J7040

== ENCOUNTER 2022-05-10 14:21 | Outpatient (CLI) | payer BC, SELFPAY | END 2022-05-10 14:22 | disposition home or self-care (01) | LOC: CHSIMG 14:23 | PROVIDERS: PCP Internal Medicine; Visit Provider Internal Medicine | DX: Z53.8 Procedure and treatment not carried out for other reasons (principal) | CPT/HCPCS: 99199 ==

== ENCOUNTER 2022-05-20 12:54 | Outpatient (RCR) | payer BC, SELFPAY ==
[2022-02-22 15:58] LABS: INR 4.3; Prothrombin Time 43.2 Seconds (9.50-12.10)
[2022-03-10 10:06] LABS: INR 1.8; Prothrombin Time 18.6 Seconds (9.50-12.10)
[2022-03-17 09:32] LABS: INR 1.4; Prothrombin Time 14.3 Seconds (9.50-12.10)
[2022-03-24 08:03] LABS: INR 2.4; Prothrombin Time 24.3 Seconds (9.50-12.10)
[2022-04-07 08:11] LABS: INR 2.2; Prothrombin Time 22.6 Seconds (9.50-12.10)
[2022-04-21 07:40] LABS: INR 1.1; Prothrombin Time 11.9 Seconds (9.50-12.10)
[2022-04-28 07:36] LABS: Prothrombin Time 11.4 Seconds (9.50-12.10)
[2022-05-10 07:33] LABS: INR 1.3
[2022-05-13 08:06] LABS: INR 1.6; Prothrombin Time 16.5 Seconds (9.50-12.10)
[2022-05-17 07:42] LABS: INR 1.7; Prothrombin Time 17.7 Seconds (9.50-12.10)
[2022-05-20 13:18] LABS: INR 1.3; Prothrombin Time 14.1 Seconds (9.50-12.10)
== END 2022-05-23 23:59 | disposition home or self-care (01) ==
LOC: CHSLAB 12:54
PROVIDERS: PCP Internal Medicine; Visit Provider Internal Medicine
DX: Z79.01 Long term (current) use of anticoagulants (principal)
CPT/HCPCS: 36415; 85610

== ENCOUNTER 2022-06-24 10:29 | Outpatient (CLI) | payer BC, SELFPAY ==
[2022-06-24 11:11] LABS: SARS-CoV-2 Ag Negative (Negative)
[2022-06-24 11:46] LABS: SARS-CoV-2 RNA PCR Negative (Negative)
== END 2022-06-24 10:30 | disposition home or self-care (01) ==
LOC: CHSLAB 10:33
PROVIDERS: PCP Internal Medicine; Visit Provider Internal Medicine
DX: J06.9 Acute upper respiratory infection, unspecified (principal); Z20.822 Contact with and (suspected) exposure to COVID-19
CPT/HCPCS: 87426; C9803; U0003; U0005

== ENCOUNTER 2022-11-20 07:02 | Outpatient (CLI) | payer BC, SELFPAY ==
[2022-11-20 07:22] LABS: Basophils Absolute Auto 0.02 K/mm3 (0.00-0.10); Basophils Percent Auto 0.5 % (0.0-1.0); Eosinophils Absolute Auto 0.09 K/mm3 (0.02-0.50); Eosinophils Percent Auto 2.2 % (1.0-6.0); Hematocrit 36.9 % (35.0-49.0); Hemoglobin 11.7 g/dL (12.0-15.0); Immature Granulocyte Absolute 0.01 K/mm3 (0.00-0.00); Immature Granulocyte Percent A 0.2 % (0.0-0.0); Lymphocytes Percent Auto 45.8 % (18.0-42.0); Mean Corpuscular HGB Conc 31.7 g/dL (32.0-36.0); Mean Corpuscular Hemoglobin 29.5 pg (27.0-31.0); Mean Corpuscular Volume 92.9 fL (78.0-102.0); Mean Platelet Volume 9.1 fl (9.2-11.8); Monocytes Absolute Auto 0.25 K/mm3 (0.10-0.90); Neutrophils Absolute Auto 1.9 K/mm3 (1.7-7.2); Neutrophils Percent Auto 45.3 % (50.0-70.0); Platelet Count Result 179 K/mm3 (150-420); Red Blood Count 3.97 M/mm3 (4.20-5.40); Red Cell Distribution Width 13.2 % (11.6-14.4); White Blood Count 4.2 K/mm3 (4.8-10.8)
[2022-11-20 08:05] LABS: Hemoglobin A1C 5.5 % (<5.7)
[2022-11-20 08:19] LABS: Alanine Aminotransferase 21 U/L (14-59); Albumin Level 3.5 g/dL (3.4-5.0); Alkaline Phosphatase 77 U/L (46-116); Anion Gap 4 mmol/L (8-16); Aspartate Amino Transferase 12 U/L (15-37); Bilirubin,Total 0.3 mg/dL (0.00-1.00); Blood Urea Nitrogen 22 mg/dL (7-18); Calcium 8.5 mg/dL (8.5-10.1); Carbon Dioxide 31 mmol/L (21-32); Chloride 109 mmol/L (98-108); Cholesterol 280 mg/dL (0-200); Estimated Glomerular Filt Rate > 60; Glucose 114 mg/dL (70-99); HDL Direct 62 mg/dL (40-60); LDL Cholesterol Calculated 206 mg/dL (<130); Osmolality Calculated 302 mOsm/kg (285-295); Potassium 4.5 mmol/L (3.5-5.1); Sodium 144 mmol/L (136-145); Thyroid Stimulating Hormone 1.33 uIU/mL (0.36-3.74); Total Protein 6.5 g/dL (6.4-8.2); Triglycerides 59 mg/dL (0-150)
== END 2022-11-20 07:03 | disposition home or self-care (01) ==
PROVIDERS: PCP Internal Medicine; Visit Provider Internal Medicine
DX: E11.9 Type 2 diabetes mellitus without complications (principal)
CPT/HCPCS: 36415; 80053; 80061; 83036; 84443; 85025

== ENCOUNTER 2023-04-30 07:02 | Outpatient (CLI) | payer BC, SELFPAY ==
[2023-04-30 07:19] LABS: Basophils Absolute Auto 0.03 K/mm3 (0.00-0.10); Basophils Percent Auto 0.5 % (0.0-1.0); Eosinophils Absolute Auto 0.07 K/mm3 (0.02-0.50); Eosinophils Percent Auto 1.1 % (1.0-6.0); Hematocrit 38.2 % (35.0-49.0); Hemoglobin 12.5 g/dL (12.0-15.0); Immature Granulocyte Absolute 0.02 K/mm3 (0.00-0.00); Immature Granulocyte Percent A 0.3 % (0.0-0.0); Lymphocytes Absolute Auto 1.68 K/mm3 (1.10-4.50); Lymphocytes Percent Auto 25.3 % (18.0-42.0); Mean Corpuscular HGB Conc 32.7 g/dL (32.0-36.0); Mean Corpuscular Hemoglobin 29.6 pg (27.0-31.0); Mean Corpuscular Volume 90.5 fL (78.0-102.0); Mean Platelet Volume 9.3 fl (9.2-11.8); Monocytes Absolute Auto 0.33 K/mm3 (0.10-0.90); Neutrophils Absolute Auto 4.5 K/mm3 (1.7-7.2); Neutrophils Percent Auto 67.8 % (50.0-70.0); Platelet Count Result 203 K/mm3 (150-420); Red Blood Count 4.22 M/mm3 (4.20-5.40); Red Cell Distribution Width 12.8 % (11.6-14.4); White Blood Count 6.7 K/mm3 (4.8-10.8)
[2023-04-30 07:27] LABS: Hemoglobin A1C 6.3 % (<5.7)
[2023-04-30 08:11] LABS: Alanine Aminotransferase 16 U/L (14-59); Albumin Level 3.9 g/dL (3.4-5.0); Alkaline Phosphatase 95 U/L (46-116); Anion Gap 9 mmol/L (8-16); Aspartate Amino Transferase 10 U/L (15-37); Bilirubin,Total 0.9 mg/dL (0.00-1.00); Blood Urea Nitrogen 14 mg/dL (7-18); CRP 0.6 mg/dL (0.0-0.9); Carbon Dioxide 28 mmol/L (21-32); Chloride 105 mmol/L (98-108); Cholesterol 166 mg/dL (0-200); Estimated Glomerular Filt Rate > 60; Glucose 132 mg/dL (70-99); HDL Direct 59 mg/dL (40-60); LDL Cholesterol Calculated 94 mg/dL (<130); Osmolality Calculated 296 mOsm/kg (285-295); Potassium 4.2 mmol/L (3.5-5.1); Sodium 142 mmol/L (136-145); Thyroid Stimulating Hormone 1.55 uIU/mL (0.36-3.74); Total Protein 6.9 g/dL (6.4-8.2); Triglycerides 63 mg/dL (0-150)
== END 2023-04-30 07:03 | disposition home or self-care (01) ==
LOC: CHSLAB 07:04
PROVIDERS: PCP Internal Medicine; Visit Provider Internal Medicine
DX: R73.03 Prediabetes (principal); E78.5 Hyperlipidemia, unspecified; R21 Rash and other nonspecific skin eruption
CPT/HCPCS: 36415; 80053; 80061; 83036; 84443; 85025; 86140

== ENCOUNTER 2024-02-24 08:03 | Outpatient (CLI) | payer BC, SELFPAY ==
[2024-02-24 08:33] LABS: Basophils Absolute Auto 0.03 K/mm3 (0.00-0.10); Basophils Percent Auto 0.5 % (0.0-1.0); Eosinophils Absolute Auto 0.09 K/mm3 (0.02-0.50); Eosinophils Percent Auto 1.5 % (1.0-6.0); Hematocrit 40.3 % (35.0-49.0); Hemoglobin 12.9 g/dL (12.0-15.0); Immature Granulocyte Absolute 0.02 K/mm3 (0.00-0.00); Immature Granulocyte Percent A 0.3 % (0.0-0.0); Lymphocytes Absolute Auto 1.68 K/mm3 (1.10-4.50); Lymphocytes Percent Auto 27.2 % (18.0-42.0); Mean Corpuscular Hemoglobin 28.5 pg (27.0-31.0); Mean Corpuscular Volume 89.2 fL (78.0-102.0); Mean Platelet Volume 9.1 fl (9.2-11.8); Monocytes Absolute Auto 0.31 K/mm3 (0.10-0.90); Neutrophils Absolute Auto 4.04 K/mm3 (1.70-7.20); Neutrophils Percent Auto 65.5 % (50.0-70.0); Platelet Count Result 205 K/mm3 (150-420); Red Blood Count 4.52 M/mm3 (4.20-5.40); Red Cell Distribution Width 12.4 % (11.6-14.4); White Blood Count 6.2 K/mm3 (4.8-10.8)
[2024-02-24 08:43] LABS: Hemoglobin A1C 6.4 % (<5.7)
[2024-02-24 09:21] LABS: Alanine Aminotransferase 27 U/L (14-59); Albumin Level 3.4 g/dL (3.4-5.0); Alkaline Phosphatase 75 U/L (46-116); Anion Gap 7 mmol/L (4-12); Aspartate Amino Transferase 14 U/L (15-37); Bilirubin,Total 0.9 mg/dL (0.00-1.00); Blood Urea Nitrogen 15 mg/dL (7-18); Carbon Dioxide 30 mmol/L (21-32); Chloride 102 mmol/L (98-108); Cholesterol 152 mg/dL (0-200); Estimated Glomerular Filt Rate > 60; Glucose 165 mg/dL (70-99); HDL Direct 57 mg/dL (40-60); LDL Cholesterol Calculated 83 mg/dL (<130); Osmolality Calculated 292 mOsm/kg (285-295); Potassium 4.6 mmol/L (3.5-5.1); Sodium 139 mmol/L (136-145); Thyroid Stimulating Hormone 1.58 uIU/mL (0.36-3.74); Total Protein 6.9 g/dL (6.4-8.2); Triglycerides 61 mg/dL (0-150)
== END 2024-02-24 08:04 | disposition home or self-care (01) ==
PROVIDERS: PCP Internal Medicine; Visit Provider Internal Medicine
DX: Z00.00 Encounter for general adult medical examination without abnormal findings (principal); E11.9 Type 2 diabetes mellitus without complications
CPT/HCPCS: 36415; 80053; 80061; 83036; 84443; 85025